=== PATIENT | male | born 1945 | race Caucasian/White ===

== ENCOUNTER 2019-05-26 12:47 | Inpatient (IN) | payer OTHER ==
[2019-05-26 13:53] LABS: Absolute Lymphocytes (CBC) 1.2 K/uL (0.7-4.9); Basophils % 0.3 % (0-1.3); Hematocrit 41.6 % (39.6-49.0); Lymphocytes % 13.8 % (15.3-44.8); MPV 10.6 fL (7.6-11.3); RBC Red Blood Cell Count 4.35 M/uL (4.33-5.43)
[2019-05-26 13:54] LABS: Protime INR 1.1
[2019-05-26 14:05] LABS: Albumin 3.1 g/dL (3.4-5.0); Bilirubin Direct 0.1 mg/dL (0-0.2); Bilirubin Total 0.5 mg/dL (0.2-1.0); Potassium 3.9 mmol/L (3.5-5.1); Protein, Total 7.8 g/dL (6.4-8.2)
--- NOTE | 2019-05-26 14:11 | RAD REPORT ---
EXAM DESCRIPTION: Abe Single View05/26/2019 2:00 pm CLINICAL HISTORY: Chest pain COMPARISON: 2017 FINDINGS: The lungs appear clear of acute infiltrate. The heart is normal size IMPRESSION: No acute abnormalities displayed
--- NOTE | 2019-05-26 15:18 | ER ---
Nurse's Notes [facility] Name: Tiffanie Alvarez Age: 74 yrs Sex: Male : 1945 Arrival Date: 05/26/2019 Time: 12:49 Bed 14 Private MD: Dorian Verde V Diagnosis: Chest pain, unspecified;Angina pectoris;Cough;Essential (primary) hypertension;Type 2 diabetes mellitus Presentation: 05/26 12:56 Presenting complaint: Patient states: i had some chest pain Sunday and it went away tw2 and then this morning i took the garbage out this morning and then i started having pain, it is on the left side of my chest. Presenting complaint: Patient states: i have been coughing for months. Transition of care: patient was not received from another setting of care. Onset of symptoms was May 26, 2019. Risk Assessment: Do you want to hurt yourself or someone else? Patient reports no desire to harm self or others. Initial Sepsis Screen: Does the patient meet any 2 criteria? No. Patient's initial sepsis screen is negative. Does the patient have a suspected source of infection? No. Patient's initial sepsis screen is negative. Care prior to arrival: None. 12:56 Method Of Arrival: Ambulatory tw2 12:56 Acuity: ANDREEA 3 tw2 Triage Assessment: 12:57 General: Appears in no apparent distress. Behavior is calm, cooperative, appropriate tw2 for age. Pain: Complains of pain in chest. Cardiovascular: Reports chest pain. Respiratory: Reports cough that is. Historical: - Allergies: 13: No Known Allergies; tw2 - Home Meds: 13:01 aspirin 81 mg Oral chew 1 tab once daily [Active]; repaglinide 0.5 mg oral tab 1 tab 3 tw2 times per day [Active]; levothyroxine 25 mcg tab 1 tab once daily [Active]; dorzolamide 2 % ophthalmic drop 1 drop 3 times per day [Active]; latanoprost 0.005 % ophthalmic drop 1 drop once daily [Active]; - PMHx: 13:01 CVA; Diabetes - NIDDM; Hypertension; Hypothyroidism; Irregular heart rate; hypotension; tw2 blindness; - Immunization history:: Adult Immunizations. - Coronavirus screen:: The patient has NOT traveled to [place], [place], or [place] in the past 14 days. - Social history:: Smoking status: . - Family history:: not pertinent. - Ebola Screening: : Patient denies travel to an Ebola-affected area in the 21 days before illness onset. Screenin:15 Abuse screen: Denies threats or abuse. Denies injuries from another. Nutritional ca1 screening: No deficits noted. Tuberculosis screening: No symptoms or risk factors identified. Fall Risk IV access (20 points). Ambulatory Aid- Crutches/Cane/Walker (15 pts). Gait- Weak (10 pts.). Total Junior Fall Scale indicates High Risk Score (45 or more points). Fall prevention measures have been instituted. Side Rails Up X 2 Frequent Obs/Assessments Occuring Family Present and informed to notify staff if the need to leave the bedside As available patient and family educated on Fall Prevention Program and Strategies. Assessment: 13:15 General: Appears in no apparent distress. comfortable, Behavior is calm, cooperative, ca1 appropriate for age. Pain: Complains of pain in anterior aspect of left upper chest and mid-sternal area Pain does not radiate. Pain currently is 0 out of 10 on a pain scale. at worst was 7 out of 10 on a pain scale. Quality of pain is described as dull, Pain began 2-3 days ago. Sunday, went away and came back this morning which was worse and with nausea Is intermittent, Also complains of nausea. Neuro: Level of Consciousness is awake, alert, obeys commands, Oriented to person, place, time, situation, Appropriate for age. Cardiovascular: Heart tones S1 S2 present Capillary refill < 3 seconds Patient's skin is warm and dry. Rhythm is sinus bradycardia. Respiratory: Reports cough that is since a month ago Airway is patent Respiratory effort is even, unlabored, Respiratory pattern is regular, symmetrical, Breath sounds are clear bilaterally. GI: Abdomen is flat, non-distended, Bowel sounds present X 4 quads. Abd is soft and non tender X 4 quads. : No signs and/or symptoms were reported regarding the genitourinary system. EENT: Derm: Skin is intact, is healthy with good turgor, Skin is pink, warm \T\ dry. Musculoskeletal: Circulation, motion, and sensation intact. Capillary refill < 3 seconds, Range of motion: intact in all extremities. 14:17 Reassessment: Patient appears in no apparent distress at this time. No changes from ca1 previously documented assessment. Patient and/or family updated on plan of care and expected duration. Pain level reassessed. Patient is alert, oriented x 3, equal unlabored respirations, skin warm/dry/pink. 15:15 Reassessment: Patient appears in no apparent distress at this time. No changes from ca1 previously documented assessment. Patient and/or family updated on plan of care and expected duration. Pain level reassessed. Patient is alert, oriented x 3, equal unlabored respirations, skin warm/dry/pink. 15:58 Reassessment: 's number Peggy: [phone]. ca1 16:44 Reassessment: Patient appears in no apparent distress at this time. Patient and/or ca1 family updated on plan of care and expected duration. Pain level reassessed. Patient is alert, oriented x 3, equal unlabored respirations, skin warm/dry/pink. 16:52 Reassessment: called for report. RN will call back. ca1 Vital Signs: 12:57 BP 145 / 68; Pulse 62; Resp 18; Temp 97.5(TE); Pulse Ox 95% on R/A; Weight 81.65 kg tw2 (R); Height 5 ft. 10 in. (177.80 cm); Pain 0/10; 14:03 BP 154 / 84; Pulse 61; Resp 19 S; Pulse Ox 95% on R/A; ca1 15:15 BP 143 / 87; Pulse 56; Resp 18; Pulse Ox 94% on R/A; ca1 16:44 BP 162 / 91; Pulse 59; Resp 18 S; Pulse Ox 97% on R/A; ca1 12:57 Body Mass Index 25.83 (81.65 kg, 177.80 cm) tw2 ED Course: 12:49 Patient arrived in ED. mr 12:50 Dorian Verde MD is Private Physician. mr 12:57 Triage completed. tw2 12:57 Arm band placed on. tw2 13:06 EKG completed in triage. Results shown to . tw2 13:08 Tuan Navarro MD is Attending Physician. jomar 13:15 Patient has correct armband on for positive identification. Placed in gown. Bed in low ca1 position. Call light in reach. Side rails up X2. teletypesetter monitor on. Pulse ox on. NIBP on. Warm blanket given. 13:15 No provider procedures requiring assistance completed. Patient maintains SpO2 ca1 saturation greater than 95% on room air. 13:26 Kenzie Smith, RN is Primary Nurse. ca1 13:30 Initial lab(s) drawn, by me, sent to lab. First set of blood cultures drawn. Inserted ms saline lock: 20 gauge in right forearm, using aseptic technique. Blood collected. 14:01 XRAY Chest (1 view) In Process Unspecified. EDMS 15:16 Dorian Verde MD is Hospitalizing Provider. [facility] 15:50 Patient admitted, IV remains in place. ca1 Administered Medications: 15:25 Drug: Aspirin 162 mg Route: PO; ca1 16:51 Follow up: Response: No adverse reaction ca1 15:40 Drug: Lipitor 20 mg Route: PO; ca1 16:47 Follow up: Response: No adverse reaction ca1 15:57 Drug: Lovenox 1 mg/kg Route: Sub-Q; Site: right lower abdomen; ca1 16:51 Follow up: Response: No adverse reaction ca1 Outcome: 15:17 Decision to Hospitalize by Provider. jomar 17:19 Admitted to Med/surg accompanied by tech, family with patient, via wheelchair, room ca1 207, with chart, Report called to ZOHAIB DIOR 17:19 Condition: stable ca1 17:19 Instructed on the need for admit. 17:35 Patient left the ED. ca1 Signatures: Dispatcher [employer] EDMS Tuan Navarro MD MD cha Rivera, Ghazala mr Montemayor, Traci Karrie Urban, RN RN tw2 Kenzie Smith, ZOHAIB RN ca1 Corrections: (The following items were deleted from the chart) 13:06 13:03 EKG completed in triage. Results shown to . nic tw2
--- NOTE | 2019-05-26 15:18 | EDPHYS ---
Physician Documentation [facility] Name: Tiffanie Alvarez Age: 74 yrs Sex: Male : 1945 Arrival Date: 05/26/2019 Time: 12:49 Bed 14 Private MD: Dorian Verde V ED Physician Tuan Navarro HPI: 05/26 13:27 This 74 yrs old Male presents to ER via Ambulatory with complaints of Chest jomar Pain, Cough, Nausea. 13:27 The patient or guardian reports chest pain that is located primarily in the substernal jomar area. Onset: 2 day(s) ago. The pain does not radiate. Associated signs and symptoms: Pertinent positives: cough, diaphoresis, lightheadedness. The chest pain is described as a heaviness, a pressure. Modifying factors: The symptoms are alleviated by remaining still, rest, the symptoms are aggravated by exertion. The patient has not experienced similar symptoms in the past. Historical: - Allergies: 13:01 No Known Allergies; tw2 - Home Meds: 13:01 aspirin 81 mg Oral chew 1 tab once daily [Active]; repaglinide 0.5 mg oral tab 1 tab 3 tw2 times per day [Active]; levothyroxine 25 mcg tab 1 tab once daily [Active]; dorzolamide 2 % ophthalmic drop 1 drop 3 times per day [Active]; latanoprost 0.005 % ophthalmic drop 1 drop once daily [Active]; - PMHx: 13:01 CVA; Diabetes - NIDDM; Hypertension; Hypothyroidism; Irregular heart rate; hypotension; tw2 blindness; - Immunization history:: Adult Immunizations. - Coronavirus screen:: The patient has NOT traveled to [place], [place], or [place] in the past 14 days. - Social history:: Smoking status: . - Family history:: not pertinent. - Ebola Screening: : Patient denies travel to an Ebola-affected area in the 21 days before illness onset. ROS: 13:27 Constitutional: Negative for fever, chills, and weight loss, Eyes: Negative for injury, jomar pain, redness, and discharge, ENT: Negative for injury, pain, and discharge, Neck: Negative for injury, pain, and swelling, Respiratory: Negative for shortness of breath, cough, wheezing, and pleuritic chest pain, Abdomen/GI: Negative for abdominal pain, nausea, vomiting, diarrhea, and constipation, Back: Negative for injury and pain, : Negative for injury, bleeding, discharge, and swelling, MS/Extremity: Negative for injury and deformity, Skin: Negative for injury, rash, and discoloration, Neuro: Negative for headache, weakness, numbness, tingling, and seizure. 13:27 Cardiovascular: Positive for chest pain. Exam: 13:27 Constitutional: This is a well developed, well nourished patient who is awake, alert, jomar and in no acute distress. Head/Face: Normocephalic, atraumatic. Eyes: Pupils equal round and reactive to light, extra-ocular motions intact. Lids and lashes normal. Conjunctiva and sclera are non-icteric and not injected. Cornea within normal limits. Periorbital areas with no swelling, redness, or edema. ENT: Nares patent. No nasal discharge, no septal abnormalities noted. Tympanic membranes are normal and external auditory canals are clear. Oropharynx with no redness, swelling, or masses, exudates, or evidence of obstruction, uvula midline. Mucous membranes moist. Neck: Trachea midline, no thyromegaly or masses palpated, and no cervical lymphadenopathy. Supple, full range of motion without nuchal rigidity, or vertebral point tenderness. No Meningismus. Chest/axilla: Normal chest wall appearance and motion. Nontender with no deformity. No lesions are appreciated. Cardiovascular: Regular rate and rhythm with a normal S1 and S2. No gallops, murmurs, or rubs. Normal PMI, no JVD. No pulse deficits. Respiratory: Lungs have equal breath sounds bilaterally, clear to auscultation and percussion. No rales, rhonchi or wheezes noted. No increased work of breathing, no retractions or nasal flaring. Abdomen/GI: Soft, non-tender, with normal bowel sounds. No distension or tympany. No guarding or rebound. No evidence of tenderness throughout. Back: No spinal tenderness. No costovertebral tenderness. Full range of motion. Male : Normal genitalia with no discharge or lesions. Skin: Warm, dry with normal turgor. Normal color with no rashes, no lesions, and no evidence of cellulitis. MS/ Extremity: Pulses equal, no cyanosis. Neurovascular intact. Full, normal range of motion. Neuro: Awake and alert, GCS 15, oriented to person, place, time, and situation. Cranial nerves II-XII grossly intact. Motor strength 5/5 in all extremities. Sensory grossly intact. Cerebellar exam normal. Normal gait. Psych: Awake, alert, with orientation to person, place and time. Behavior, mood, and affect are within normal limits. 13:27 Musculoskeletal/extremity: DVT Exam: No signs of deep vein thrombosis. no pain, no swelling, no tenderness, negative Homans' sign noted on exam, no appreciated bluish discoloration, no erythema, no increased warmth. Vital Signs: 12:57 BP 145 / 68; Pulse 62; Resp 18; Temp 97.5(TE); Pulse Ox 95% on R/A; Weight 81.65 kg tw2 (R); Height 5 ft. 10 in. (177.80 cm); Pain 0/10; 14:03 BP 154 / 84; Pulse 61; Resp 19 S; Pulse Ox 95% on R/A; ca1 15:15 BP 143 / 87; Pulse 56; Resp 18; Pulse Ox 94% on R/A; ca1 16:44 BP 162 / 91; Pulse 59; Resp 18 S; Pulse Ox 97% on R/A; ca1 12:57 Body Mass Index 25.83 (81.65 kg, 177.80 cm) tw2 MDM: 13:08 Patient medically screened. [facility] 13:30 Data reviewed: vital signs, nurses notes, lab test result(s), EKG, radiologic studies, [facility] CT scan, plain films. 05/26 13:16 Order name: Basic Metabolic Panel; Complete Time: 14:45 [facility] 05/26 13:16 Order name: CBC with Diff; Complete Time: 14:45 [facility] 05/26 13:16 Order name: LFT's; Complete Time: 14:45 [facility] 05/26 13:16 Order name: Magnesium; Complete Time: 14:45 [facility] 05/26 13:16 Order name: NT PRO-BNP; Complete Time: 14:45 [facility] 05/26 13:16 Order name: PT-INR; Complete Time: 14:45 [facility] 05/26 13:16 Order name: Troponin (emerg Dept Use Only); Complete Time: 17:21 [facility] 05/26 13:16 Order name: XRAY Chest (1 view); Complete Time: 14:45 [facility] 05/26 13:16 Order name: Lipase; Complete Time: 17:21 [facility] 05/26 13:27 Order name: Blood Culture Adult (2) [facility] 05/26 15:21 Order name: Urine Dipstick--Ancillary (enter results) 05/26 13:16 Order name: EKG; Complete Time: 13:17 [facility] 05/26 13:16 Order name: Cardiac monitoring; Complete Time: 13:36 [facility] 05/26 13:16 Order name: EKG - Nurse/Tech; Complete Time: 13:36 [facility] 05/26 13:16 Order name: IV Saline Lock; Complete Time: 13:37 [facility] 05/26 13:16 Order name: Labs collected and sent; Complete Time: 13:37 [facility] 05/26 13:16 Order name: O2 Per Protocol; Complete Time: 13:37 [facility] 05/26 13:16 Order name: O2 Sat Monitoring; Complete Time: 13:37 [facility] 05/26 13:16 Order name: Urine Dipstick-Ancillary (obtain specimen); Complete Time: 14:58 [facility] 05/26 15:23 Order name: CONS Physician Consult [facility] 05/26 15:24 Order name: Diet Heart Healthy; Complete Time: 15:25 iw Administered Medications: 15:25 Drug: Aspirin 162 mg Route: PO; ca1 16:51 Follow up: Response: No adverse reaction ca1 15:40 Drug: Lipitor 20 mg Route: PO; ca1 16:47 Follow up: Response: No adverse reaction ca1 15:57 Drug: Lovenox 1 mg/kg Route: Sub-Q; Site: right lower abdomen; ca1 16:51 Follow up: Response: No adverse reaction ca1 Disposition: 05/26/19 15:17 Hospitalization ordered by Dorian Verde for Inpatient Admission. Preliminary diagnosis are Chest pain, unspecified, Angina pectoris, Cough, Essential (primary) hypertension, Type 2 diabetes mellitus. - Bed requested for Telemetry/MedSurg (Inpatient). - Status is Inpatient Admission. ca1 - Condition is Fair. - Problem is new. - Symptoms have improved. UTI on Admission? No Signatures: Dispatcher [employer] [facility] Lila Grace Corey, MD MD cha Attema, Lee, AIRPORT RAMP ATTENDANT-C AIRPORT RAMP ATTENDANT-Cla1 Karrie Pillai RN RN tw2 Kenzie Smith RN RN ca1 Corrections: (The following items were deleted from the chart) 16:42 15:17 Hospitalization Ordered by Dorian Verde MD for Inpatient Admission. Preliminary bd diagnosis is Chest pain, unspecified; Angina pectoris; Cough; Essential (primary) hypertension; Type 2 diabetes mellitus. Bed requested for Telemetry/MedSurg (Inpatient). Status is Inpatient Admission. Condition is Fair. Problem is new. Symptoms have improved. UTI on Admission? No. jomar 17:35 16:42 05/26/2019 15:17 Hospitalization Ordered by Dorian Verde MD for Inpatient ca1 Admission. Preliminary diagnosis is Chest pain, unspecified; Angina pectoris; Cough; Essential (primary) hypertension; Type 2 diabetes mellitus. Bed requested for Telemetry/MedSurg (Inpatient). Status is Inpatient Admission. Condition is Fair. Problem is new. Symptoms have improved. UTI on Admission? No. bd
--- NOTE | 2019-05-26 15:19 | EKG ---
Test Date: 2019-05-26 Test Time: 13:05:42 Mine Geologist: MADHAV MEASUREMENT RESULTS: Intervals: Rate: 61 CA: 270 QRSD: 96 QT: 426 QTc: 428 [place]: P: 38 CA: 270 QRS: 42 T: 87 INTERPRETIVE STATEMENTS: Sinus rhythm with 1st degree AV block Abnormal ECG Compared to ECG 05/30/2017 17:44:20 Sinus bradycardia no longer present Electronically Signed On 05-26-19 15:18:23 DISH CARRIER by Wilber Medley
[2019-05-26] MEDS ORDERED: ENOXAPARIN 80 MG/0.8 ML SQ ONE (15:26)
[2019-05-26] MEDS ORDERED: ASPIRIN 81 MG CHEWABLE TABLET ONE (15:26)
[2019-05-26 15:39] LABS: Troponin (Emerg Dept Use Only) 0.38 ng/mL (0.0-0.045)
[2019-05-26] MEDS ORDERED: ATORVASTATIN 20 MG TAB ONE (15:43)
[2019-05-26 17:55] VITALS: BMI 24.1
[2019-05-26] MEDS ORDERED: MORPHINE 4 MG/ML SYR IV PRN (18:07)
[2019-05-26] MEDS ORDERED: D50W 25 GM/50 ML SYRINGE/VIAL IV PRN (18:07)
[2019-05-26] MEDS ORDERED: GLUCAGON 1 MG/VIAL IM PRN (18:07)
[2019-05-26] MEDS ORDERED: ACETAMINOPHEN 500 MG TAB PO PRN (18:07)
[2019-05-26] MEDS ORDERED: ONDANSETRON 4 MG/2 ML VIAL IV PRN (18:07)
[2019-05-26] MEDS: INSULIN -REGULAR HUMAN 50 UNIT/0.5 ML ML SQ SCH ×2 (18:24→21:00)
[2019-05-26] MEDS: METOPROLOL TAR 25 MG TAB PO SCH (18:25)
--- NOTE | 2019-05-26 18:28 | P.HP ---
Certification for Inpatient Patient admitted to: Inpatient With expected LOS: >2 Midnights Practitioner: I am a practitioner with admitting privileges, knowledge of patient current condition, hospital course, and medical plan of care. Services: Services provided to patient in accordance with Admission requirements found in Title 42 Section 412.3 of the Code of Federal Regulations Patient History Date of Service: 05/26/19 Reason for admission: CHEST PAIN History of Present Illness: MR. MARIANO IS A DIABETIC WHO HAD CHEST PAIN ONCE SUNDAY AND THEN THIS AM. HE HAD VOMITING THIS AM ALSO. HE IS NOT A SMOKER. Allergies No Known Allergies Allergy (Verified 11/25/15 08:55) Home Medications: Aspirin [Aspir-Low] 81 mg PO DAILY 05/26/19 Dorzolamide HCl/Timolol Maleat [Dorzolamide-Timolol Eye Drops] 10 ml OP BID Latanoprost/Pf [Latanoprost 0.005% Eye Drop] 1 drop EACH EYE DAILY 05/26/19 Levothyroxine Sodium 25 mcg PO DAILY 05/26/19 Repaglinide [Prandin] 0.5 mg PO DAILY 05/26/19 - Past Medical/Surgical History Has patient received pneumonia vaccine in the past: No Diabetic: Yes -: HTN -: DIABETES- NIDDM -: CATARACT SX TO RIGHT EYE- March -: Right 5th toe amputation - Family History Mother -: Hypertension, Diabetes - Social History Smoking Status: Never smoker Alcohol use: No CD- Drugs: No Caffeine use: No Review of Systems 10-point ROS is otherwise unremarkable Physical Examination - Vital Signs Temperature: 97.8 F Blood Pressure: 133/69 Pulse: 60 Respirations: 17 Pulse Ox (%): 93 - Physical Exam General: Acute distress, Other (BLIND) HEENT: Atraumatic, PERRLA, Mucous membr. moist/pink, EOMI, Sclerae nonicteric Neck: Supple, 2+ carotid pulse no bruit, No LAD, Without JVD or thyroid abnormality Respiratory: Clear to auscultation bilaterally, Normal air movement Cardiovascular: Regular rate/rhythm, Normal S1 S2 Gastrointestinal: Normal bowel sounds, No tenderness Musculoskeletal: No tenderness Integumentary: No rashes Neurological: Normal gait, Normal speech, Normal strength at 5/5 x4 extr, Normal tone, Normal affect Lymphatics: No axilla or inguinal lymphadenopathy - Studies Laboratory Data (last 24 hrs) 05/26/19 13:30: Lipase 224 05/26/19 13:30: PT 12.9 H, INR 1.10 05/26/19 13:30: WBC 8.5, Hgb 13.9, Hct 41.6, Plt Count 151 L 05/26/19 13:30: Sodium 140, Potassium 3.9, BUN 25 H, Creatinine 1.28, Glucose 168 H, Magnesium 2.0, Total Bilirubin 0.5, AST 15, ALT 27, Alkaline Phosphatase 78 Assessment and Plan - Problems (Diagnosis) (1) Subendocardial DE first episode care Current Visit: Yes Status: Acute Plan: CATH IN AM. STORY AND RISK FACTORS ARE POSITIVE. (2) Diabetes Current Visit: No Status: Chronic Plan: USUALLY HE GET LOW GLUCOSE IF HE HE GETS ANYTHING STRONGER THAN REPAGLINIDE. WILL CHECK A1C, LDL AND URINE SHAILESH. - Advance Directives Does patient have a Living Will: No Does patient have a Durable POA for Healthcare: No
--- NOTE | 2019-05-26 18:29 | CON ---
History Of Present Illness: Mr. Alvarez is 74. He started having chest pain. Four baby aspirins were administered by a nurse who lives next to him. His pain went away. He has had some other chest jose juan ns that he does not like to talk about, but all over a fairly brief period of time. Around 10 years ago, nuclear stress test was normal. Since then, he has not had any other cardiac evaluation. He us es no tobacco. He has underlying diabetes. 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 Since he came here, his EKG does not show injury or infarction, but troponins are elevated consistent with a non-ST elevation OK. Patient is free of any pain presently. He reports no allergies. Physical Examination: General: He is alert, oriented, pleasant. Normal nutrition. Lungs: Clear. There is no carotid bruit. Heart: Normal. Extremities: 1 to 2+ edema. Distal pulses palpable but diminished. Impression: The patient has unstable angina and he should undergo a cardiac cath and possible stent. He seems to have agreed to it. He seems to understand the procedure, its potential benefits, indic ations, risks, and agrees to proceed. We will do a cardiac cath on May 27, 2019. SADIA/MONALISA Voice ID: [id number] Report ID: [id number]
[2019-05-26 18:44] LABS: Urine Blood TRACE (NEG); Urine Glucose NEGATIVE (NEG); Urine Protein 2+ (NEG); Urine Specific Gravity 1.015 (1.005-1.030)
[2019-05-26] MEDS ORDERED: TIMOLOL MALEAT OP SCH (21:00)
[2019-05-26] MEDS ORDERED: DORZOLAMIDE HCL OP SCH (21:00)
[2019-05-26] MEDS ORDERED: [UNRECOGNIZED DRUG - OTHER] OP SCH (21:00)
[2019-05-27 05:46] LABS: Potassium 4.2 mmol/L (3.5-5.1)
[2019-05-27 05:53] LABS: Absolute Lymphocytes (CBC) 2.3 K/uL (0.7-4.9); Basophils % 0.4 % (0-1.3); Hematocrit 40.3 % (39.6-49.0); Lymphocytes % 29.1 % (15.3-44.8); MPV 10.4 fL (7.6-11.3); RBC Red Blood Cell Count 4.18 M/uL (4.33-5.43)
[2019-05-27] MEDS: LEVOTHYROXINE SOD 0.025 MG TAB PO SCH (06:33)
[2019-05-27] MEDS: METOPROLOL TAR 25 MG TAB PO SCH ×2 (06:33→18:04)
[2019-05-27] MEDS: INSULIN -REGULAR HUMAN 50 UNIT/0.5 ML ML SQ SCH ×4 (07:30→21:00)
[2019-05-27] MEDS ORDERED: METOPROLOL XL 50 MG TAB PO ONE (07:49)
[2019-05-27] MEDS ORDERED: METOPROLOL TAR 50 MG TAB PO ONE ×2 (07:57→08:00)
[2019-05-27] MEDS ORDERED: REPAGLINIDE 0.5 MG TABLET PO SCH (09:00)
[2019-05-27] MEDS ORDERED: HOME MED 1 EA UNK (Latanoprost/Pf [Latanoprost 0.005% Eye Drop] 1 DROP) EACH EYE SCH (09:00)
[2019-05-27] MEDS ORDERED: ASPIRIN EC 81 MG TAB PO SCH ×2 (09:00)
[2019-05-27] MEDS ORDERED: NA CHLORIDE 0.9% 500 ML ONE (12:28)
[2019-05-27] MEDS ORDERED: NA CHLORIDE 0.9% 50 ML ONE (12:37)
[2019-05-27] MEDS ORDERED: MIDAZOLAM HCL 2 MG/2 ML INJ ONE (12:37)
[2019-05-27] MEDS ORDERED: ATROPINE SULF 1 MG/10 ML SYR IV ONE (12:37)
[2019-05-27] MEDS ORDERED: FENTANYL CITR 100 MCG/2 ML ONE (12:37)
[2019-05-27] MEDS ORDERED: HEPA 1000U/500MLS 1,000 UNIT/500 ML BAG IV ONE (12:43)
[2019-05-27] MEDS ORDERED: NITROGLYCERIN 100 MCG/ML SYR (for cath lab use only) IV ONE (13:51)
[2019-05-27] MEDS ORDERED: NITROGLYCERIN/D5W 25 MG/250 ML BTL IV ONE (13:51)
[2019-05-27] MEDS ORDERED: ASPIRIN 325 MG TAB ONE (14:09)
[2019-05-27] MEDS ORDERED: PRASUGREL (EFFIENT) 10 MG TAB ONE (14:09)
--- NOTE | 2019-05-27 15:55 | EKG ---
Test Date: 2019-05-27 Test Time: 08:20:27 Dietary Director: MADHAV MEASUREMENT RESULTS: Intervals: Rate: 54 GA: 254 QRSD: 82 QT: 462 QTc: 438 [place]: P: 51 GA: 254 QRS: 36 T: 129 INTERPRETIVE STATEMENTS: Sinus bradycardia with 1st degree AV block T wave abnormality, consider lateral ischemia Abnormal ECG Compared to ECG 05/26/2019 13:05:42 T-wave abnormality now present Possible ischemia now present Sinus rhythm no longer present Electronically Signed On 05-27-19 15:51:52 FORMULATION CHEMIST by Chalo Child
[2019-05-27] MEDS ORDERED: ACETAMINOPHEN 325 MG TABLET PO PRN (17:49)
[2019-05-27] MEDS ORDERED: NITROGLYCERIN 0.4 MG/TAB SL PRN (17:49)
[2019-05-27] MEDS ORDERED: NA CHLORIDE 0.9% 1,000 ML IV SCH (18:00)
[2019-05-27] MEDS ORDERED: ATORVASTATIN 80 MG TAB PO SCH (21:00)
--- NOTE | 2019-05-28 00:16 | PN ---
Subjective: Mr. Alvarez is doing well. Had no chest pain, nausea, vomiting. Patient wanted to get angiogram done by Dr. Child stenosis 90%, which was stented today. Otherwise, he is currently stable. Physical Examination: Vital Signs: His blood pressure has gone up to 166/90, pulse is 50, respiratory rate is 18, temperature is 97.7. HEENT: No JVD. No carotid bruits. Chest: Clear. Heart: Regular. Abdomen: No guarding. No rebound. No rigidity. Neurological: He is legally blind. Laboratory Data: His hemoglobin A1c is 8.4, which is slightly higher than before. Assessment And Plan: Coronary artery disease, status post stent. He will be on 80 mg once a day of Lipitor, metoprolol twice a day. His IV fluids I am going to stop at this point which was from the emergency room, and for blood pressure control, I have to add a medication and that will be losartan 50 mg once a day. He will be also on Plavix 75 mg once a day and possible discharge tomorrow. EDVIN/MONALISA Voice ID: [id number] Report ID: [id number] RICK
--- NOTE | 2019-05-28 00:33 | OP ---
Date of Procedure: 05/27/2019 Surgeon: Chalo Child MD Vaccine Specialist: Radha Ambrose Patient received Angiomax, aspirin, and Effient during the procedure. He will go home on beta-blocke rs, aspirin, Plavix, and statin. I will discuss the case with Dr. Verde. Patient can go home tomorr ow. I saw the patient today in the label cutter on 05/27/2019. Indications: Dr. Medley has scheduled him for an inpatient heart catheterization because of chest pa in, abnormal stress test. Description Of Procedure: Mr. Alvarez was brought into the label cutter as an inpatient, was prepped and d raped in the routine sterile fashion. A 6-Syrian sheath introduced in the right common femoral arter y. Angiography there was normal. Angio-Seal was used to close the case. After being prepped and dr alatorre in the routine sterile fashion, 6-Syrian catheters, Felipe left and right respectively were use d to inject the left main and the right main. He had a codominant system. He had a 30% mid RCA sten osis. He had a 90% ostial PDA stenosis that the PDA was small. He had a normal proximal LAD, but di stally, the LAD was very tortuous with 60% to 70% diffuse plaquing and stenosis below the second diag onal, not bypassable, not amenable for angioplasty or stent. He had a ramus that was small with 90% [id number] stenosis, also very small for intervention. He had a 90% proximal circumflex, a very c odominant system. The circumflex was stented with 2.5 x 16 Synergy stent at 14 atmosphere with 0% re sidual. Prior to the stent, the lesion was predilated with a 2.5 x 12 Emerge balloon at 12 atmospher es, multiple dilatation. There were no complications. Blood Loss: 5 mL. Postoperative Diagnosis: Coronary artery disease, severe, status post primary stent of the circumfle x. Plan: Medical therapy for the rest of the lesion as they are not operable. Anesthesia: Total conscious sedation was 1 hour. NB/MODL Voice ID: [id number] Report ID: [id number]
[2019-05-28 02:15] VITALS: O2SAT 94
[2019-05-28] MEDS: METOPROLOL TAR 25 MG TAB PO SCH (06:00)
[2019-05-28] MEDS: LEVOTHYROXINE SOD 0.025 MG TAB PO SCH (06:08)
[2019-05-28] MEDS ORDERED: GLIMEPIRIDE 2 MG TABLET PO SCH (08:00)
[2019-05-28] MEDS ORDERED: REPAGLINIDE 0.5 MG PO SCH (09:00)
[2019-05-28] MEDS ORDERED: CLOPIDOGREL 75 MG TABLET PO SCH (09:00)
[2019-05-28 10:20] VITALS: BP 141/67; TEMP 97.5
--- NOTE | 2019-05-28 12:56 | CON ---
Date of Consultation: 05/28/2019 Mr. Alvarez underwent a heart catheterization yesterday via right groin approach for a positive stress test and chest pain. He was found to have diffuse coronary artery disease, especially distally in th e LAD. He had also disease in the mid RCA and distal RCA at the ostium of the PDA. He had a severe stenosis and a very small ramus. His LAD proximal was normal. He had a very tight 90% plus circumfl ex stenosis that was dilated and stented to 0% residual. Overnight, he had no chest pain, no complai nt. Telemetry is normal. Chest is clear. Pulses are present distally. The groin incision site angy eared to be intact without any hematoma. We will send Mr. Alvarez home today on his home medication, b ut we will also include Plavix 75 mg daily, Lipitor 80 mg daily. He will see me in the office in 2 w eeks. The case was discussed with Dr. Verde. EAMON/MONALISA Voice ID: [id number] Report ID: [id number]
--- NOTE | 2019-05-29 04:39 | DS ---
Date of Discharge: 05/28/2019 Final Diagnosis: Acute subendocardial myocardial infarction. 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 Hospital Course: Patient is a 74-year-old gentleman with past medical history of diabetes, who has n ot been very compliant. His A1c has been about 8.4 recently. He comes in with chest pain and jaw pa in with it, rules in for a subendocardial SC. On a cardiac catheter examination, we found patient to have circumflex 90% lesion for which Dr. Child placed in a stent. The patient was stable at disch arge. I had to change some of his medications because his diabetes medicine is not working any longe r. Discharge Medications: Include Plavix 75 mg once a day, atorvastatin 80 mg once a day, glimepiride 2 mg once a day, stopping Prandin. I will follow up in office in about a week or 2 weeks. RVD/MODL Voice ID: [id number] Report ID: [id number]
== END 2019-05-28 10:00 | disposition home or self-care (01) | DRG 247 ==
LOC: ER 12:47 → ERHOLD 15:21 → 2ND 17:22
PROVIDERS: ADMIT Internal Medicine; ATTEND Internal Medicine
PROC: 027034Z Dilation of Coronary Artery, One Artery with Drug-eluting Intraluminal Device, Percutaneous Approach (ICD-10-PCS; principal; 2019-05-27)
PROC: 4A023N7 Measurement of Cardiac Sampling and Pressure, Left Heart, Percutaneous Approach (ICD-10-PCS; 2019-05-27)
PROC: B205YZZ Plain Radiography of Left Heart using Other Contrast (ICD-10-PCS; 2019-05-27)
DX: I21.4 Non-ST elevation (NSTEMI) myocardial infarction (principal); E11.9 Type 2 diabetes mellitus without complications; H54.7 Unspecified visual loss; I10 Essential (primary) hypertension; I25.10 Atherosclerotic heart disease of native coronary artery without angina pectoris; Z91.14 Patient's other noncompliance with medication regimen; E03.9 Hypothyroidism, unspecified; Z86.73 Personal history of transient ischemic attack (TIA), and cerebral infarction without residual deficits
CPT/HCPCS: 36415; 71045; 80048; 80076; 81003; 82947; 83036; 83690; 83735; 83880; 84484; 85025; 85347; 85610; 87040; 93005; 93458; 96372; 99285; C1725; C1760; C1893; C9600; J0583; J1650; J2250; J3010; J7040

== ENCOUNTER 2019-06-21 17:36 | Emergency (ER) | payer OTHER ==
[2019-06-21 19:40] LABS: Basophils % 0.2 % (0-1.3); Hematocrit 46.9 % (39.6-49.0); Lymphocytes % 7.4 % (15.3-44.8); MPV 10.1 fL (7.6-11.3); RBC Red Blood Cell Count 4.85 M/uL (4.33-5.43)
[2019-06-21] MEDS ORDERED: NA CHLORIDE 0.9% 1,000 ML ONE (19:47)
[2019-06-21] MEDS ORDERED: ONDANSETRON 4 MG/2 ML VIAL ONE (19:47)
[2019-06-21 19:58] LABS: Albumin 3.2 g/dL (3.4-5.0); Bilirubin Direct 0.2 mg/dL (0-0.2); Bilirubin Total 0.5 mg/dL (0.2-1.0); Potassium 5.1 mmol/L (3.5-5.1); Protein, Total 8.3 g/dL (6.4-8.2)
[2019-06-21 20:00] LABS: Blood Morphology Comment NOT SEEN (NOT SEEN); Platelet Estimate ADEQ; Urine White Blood Cell Casts OK
--- NOTE | 2019-06-21 20:36 | RAD REPORT ---
EXAM DESCRIPTION: CT - Abdomen Pelvis Wo Contrast - 06/21/2019 8:21 pm CLINICAL HISTORY: vomiting, diarrhea COMPARISON: No comparisons TECHNIQUE: Axial [address] imaging of the abdomen and pelvis was performed without IV contrast. No IV contrast was given because of allergy, abnormal renal function, patient refusal or physician re quest. No oral contrast. All CT scans are performed using dose optimization technique as appropriate and may include automated exposure control or mA/KV adjustment according to patient size. FINDINGS: Prominent fibrotic changes and prominent bronchiectasis in both lung bases. No pericardial thickening or effusion. No acute infiltrate or mass. The liver, spleen and pancreas show no suspicious findings on non-contrast imaging. Gallbladder and b iliary tree are also without suspicious finding. No hydronephrosis or suspicious renal mass. No significant adrenal finding. Isodense renal masses an d pyelonephritis cannot be excluded in the absence of IV contrast. The urinary bladder is without sig nificant finding. Prostate gland is prominent projecting into the bladder base. No stomach or small bowel acute findings identifiable. No dilated colon. Mild to moderate stool volum e scattered in the colon. No appendicitis findings. Diverticulosis is minimal. Distal rectal hoep ar e mildly prominent. This region of the colon has limited sensitivity on CT imaging. No mass lesions s een. A mild proctitis is not excluded. No edema or stranding in the adjacent fat. No free air, free f luid or pneumatosis. No hernia, mass or bulky lymphadenopathy. No suspicious bony findings. IMPRESSION: Noncontrast CT abdomen and pelvis imaging showing no suspicious, emergent finding. Hope of the distal most rectum are mildly prominent. This area is inherently limited on CT imaging. The mass is not suspected. A mild proctitis would be possible. Full assessment is limited is the absence of IV contrast.
--- NOTE | 2019-06-21 22:42 | ER ---
Nurse's Notes [facility] Name: Tiffanie Alvarez Age: 74 yrs Sex: Male : 1945 Arrival Date: 06/21/2019 Time: 17:39 Bed 15 Private MD: Dorian Verde V Diagnosis: Vomiting;Diarrhea, unspecified;Dehydration;Bronchitis, not specified as acute or chronic Presentation: 06/21 17:55 Presenting complaint: Patient states: Nausea and vomiting since this morning, states aj1 that he has been unable to hold down foods or fluids. Transition of care: patient was not received from another setting of care. Onset of symptoms was May 2019. Risk Assessment: Do you want to hurt yourself or someone else? Patient reports no desire to harm self or others. Initial Sepsis Screen: Does the patient meet any 2 criteria? No. Patient's initial sepsis screen is negative. Does the patient have a suspected source of infection? No. Patient's initial sepsis screen is negative. Care prior to arrival: None. 17:55 Method Of Arrival: Wheelchair aj1 17:59 Acuity: ANDREEA 2 aj1 Triage Assessment: 17:59 General: Appears in no apparent distress. comfortable, Behavior is calm, cooperative, aj1 appropriate for age. Pain: Denies pain. Neuro: Level of Consciousness is awake, alert, obeys commands. Cardiovascular: Patient's skin is warm and dry. Respiratory: Airway is patent Respiratory effort is even, unlabored, Respiratory pattern is regular, symmetrical. GI: Reports diarrhea, nausea, vomiting. Historical: - Allergies: 17:58 No Known Allergies; aj1 - Home Meds: 17:58 Glimepiride Oral [Active]; levothyroxine 25 mcg tab 1 tab once daily [Active]; Plavix aj1 75 mg Oral tab 1 tab once daily [Active]; atorvastatin 80 mg oral tab 1 tab once daily [Active]; losartan 50 mg oral tab 1 tab once daily [Active]; aspirin 81 mg Oral chew 1 tab once daily [Active]; dorzolamide 2 % ophthalmic drop 1 drop 3 times per day [Active]; latanoprost 0.005 % ophthalmic drop 1 drop once daily [Active]; - PMHx: 17:58 BLINDNESS; CVA; Diabetes - NIDDM; Hypertension; hypotension; Hypothyroidism; Irregular aj1 heart rate; - Immunization history:: Flu vaccine is not up to date. - Coronavirus screen:: The patient has NOT traveled to [place] in the past 14 days. - Social history:: Smoking status: Patient/guardian denies using tobacco. - Ebola Screening: : Patient denies travel to an Ebola-affected area in the 21 days before illness onset. Screenin:13 Abuse screen: Denies threats or abuse. Denies injuries from another. Nutritional ph screening: No deficits noted. Tuberculosis screening: No symptoms or risk factors identified. Fall Risk None identified. Assessment: 19:10 General: Appears in no apparent distress. comfortable, slender, well groomed, Behavior ph is calm, cooperative, appropriate for age, Denies fever. Pain: Denies pain. Neuro: Level of Consciousness is awake, obeys commands, lethargic, Oriented to person, place, time, situation. Cardiovascular: Capillary refill < 3 seconds in bilateral fingers Patient's skin is warm and dry. Respiratory: Reports cough that is productive, Airway is patent Respiratory effort is even, unlabored, Respiratory pattern is regular, symmetrical, Breath sounds are coarse bilaterally. GI: Abdomen is flat, Reports diarrhea, nausea, vomiting. Derm: Skin is intact, Skin is pink, warm \T\ dry. Musculoskeletal: Circulation, motion, and sensation intact. Range of motion: intact in all extremities. 19:15 General: Appears in no apparent distress. Behavior is calm, cooperative. Pain: Denies lp1 pain. Neuro: Level of Consciousness is awake, alert, obeys commands, Oriented to person, place, situation. Cardiovascular: Patient's skin is warm and dry. Respiratory: Reports cough that is productive, Airway is patent Respiratory effort is even, Breath sounds are coarse bilaterally. Onset: The symptoms/episode began/occurred yesterday. GI: Abdomen is non-distended, Bowel sounds present X 4 quads. Reports vomiting. : No signs and/or symptoms were reported regarding the genitourinary system. EENT: No signs and/or symptoms were reported regarding the EENT system. Derm: Skin is pink, warm \T\ dry. 19:56 Reassessment: Patient denies any nausea at this time; Resting, eyes closed, lp1 respirations even, unlabored. 21:35 Reassessment: Patient given sandwich and fruit cup for PO challenge; Zofran IV lp1 administered per Provider prior to PO challenge; NC removed from patient to observe O2. 22:15 Reassessment: Patient tolerated fruit cup and half of turkey sandwich; Provider aware. lp1 22:45 Reassessment: Provider notified of patient's O2 on RA at 92% while sleeping. lp1 23:10 Reassessment: Patient appears in no apparent distress at this time. Patient is alert, lp1 oriented x 3, equal unlabored respirations, skin warm/dry/pink. Patient states feeling better. Patient states symptoms have improved. Vital Signs: 17:59 BP 113 / 70; Pulse 64; Resp 18; Temp 98.1; Pulse Ox 87% on R/A; Weight 76.66 kg (R); aj1 Height 5 ft. 10 in. (177.80 cm) (R); Pain 0/10; 19:30 BP 129 / 72; Pulse 64; Resp 18; Pulse Ox 95% on 2 lpm NC; lp1 20:30 BP 133 / 74; Pulse 64; Resp 18; Pulse Ox 96% on 2 lpm NC; lp1 21:17 BP 129 / 85; Pulse 69; Resp 18; Pulse Ox 95% on 2 lpm NC; lp1 22:30 BP 132 / 78; Pulse 75; Resp 18; Pulse Ox 93% on R/A; lp1 23:15 BP 122 / 67; Pulse 78; Resp 18; Temp 98(O); Pulse Ox 94% on R/A; lp1 17:59 Body Mass Index 24.25 (76.66 kg, 177.80 cm) aj1 ED Course: 17:39 Patient arrived in ED. as 17:39 Dorian Verde MD is Private Physician. as 17:59 Triage completed. aj1 17:59 Arm band placed on Patient placed in an exam room. aj1 18:18 Shannan Black, ZOHAIB is Primary Nurse. ph 18:19 Saroj Reis NP is PHCP. pm1 18:19 Bobby Romero MD is Attending Physician. pm1 19:13 Patient has correct armband on for positive identification. Bed in low position. Call ph light in reach. Side rails up X 1. Pulse ox on. NIBP on. Door closed. Noise minimized. 19:13 Missed attempt(s): 22 gauge in right antecubital area. Bleeding controlled, band aid ph applied, catheter tip intact. 19:23 Flu Sent. 19:30 Initial lab(s) drawn, by me, sent to lab. Inserted saline lock: 20 gauge in left lp1 antecubital area, using aseptic technique. 20:22 CT completed. Patient tolerated procedure well. Patient moved back from CT. mw3 22:41 Dorian Verde MD is Referral Physician. pm1 22:54 No provider procedures requiring assistance completed. lp1 23:15 IV discontinued, No redness/swelling at site. Pressure dressing applied. lp1 Administered Medications: 19:56 Drug: NS 0.9% 1000 ml Route: IV; Rate: 1000 ml; Site: left antecubital; lp1 22:30 Follow up: IV Status: Completed infusion; IV Intake: 1000ml lp1 21:25 Drug: Zofran 4 mg Route: IVP; Site: left antecubital; lp1 22:30 Follow up: Response: No adverse reaction lp1 Intake: 22:30 IV: 1000ml; Total: 1000ml. lp1 Outcome: 22:42 Discharge ordered by MD. pm1 23:15 Discharged to home via wheelchair, with significant other. lp1 23:15 Condition: good 23:15 Discharge instructions given to patient, significant other, Instructed on discharge instructions, follow up and referral plans. medication usage, Demonstrated understanding of instructions, follow-up care, medications, Prescriptions given X 3. 23:20 Patient left the ED. lp1 Signatures: Hilda Guerra RN RN aj1 Pallavi Mccallum Laura, RN RN lp1 Shannan Black RN RN ph Marinas, Patrick, NP SQUIRREL WORKER pm1 Floridalma Priest Fely Perez mw3
--- NOTE | 2019-06-21 22:42 | EDPHYS ---
Physician Documentation [facility] Name: Tiffanie Alvarez Age: 74 yrs Sex: Male : 1945 Arrival Date: 06/21/2019 Time: 17:39 Bed 15 Private MD: Dorian Verde V ED Physician Bobby Romero HPI: 06/21 19:38 This 74 yrs old Male presents to ER via Wheelchair with complaints of pm1 Vomiting - diabetic. 19:38 The patient presents to the emergency department with vomiting, diarrhea. Onset: The pm1 symptoms/episode began/occurred this morning. Possible causes: unknown. The symptoms are aggravated by food , The symptoms are alleviated by nothing. Associated signs and symptoms: Pertinent negatives: abdominal pain, constipation, dysuria, fever. Severity of symptoms: Pain is currently a 0 / 10. Historical: - Allergies: 17:58 No Known Allergies; aj1 - Home Meds: 17:58 Glimepiride Oral [Active]; levothyroxine 25 mcg tab 1 tab once daily [Active]; Plavix aj1 75 mg Oral tab 1 tab once daily [Active]; atorvastatin 80 mg oral tab 1 tab once daily [Active]; losartan 50 mg oral tab 1 tab once daily [Active]; aspirin 81 mg Oral chew 1 tab once daily [Active]; dorzolamide 2 % ophthalmic drop 1 drop 3 times per day [Active]; latanoprost 0.005 % ophthalmic drop 1 drop once daily [Active]; - PMHx: 17:58 BLINDNESS; CVA; Diabetes - NIDDM; Hypertension; hypotension; Hypothyroidism; Irregular aj1 heart rate; - Immunization history:: Flu vaccine is not up to date. - Coronavirus screen:: The patient has NOT traveled to [place] in the past 14 days. - Social history:: Smoking status: Patient/guardian denies using tobacco. - Ebola Screening: : Patient denies travel to an Ebola-affected area in the 21 days before illness onset. ROS: 19:38 Back: Negative for injury and pain, MS/Extremity: Negative for injury and deformity, pm1 Skin: Negative for injury, rash, and discoloration. 19:38 Neuro: Negative for headache, weakness, numbness, tingling, and seizure. 19:38 Constitutional: Negative for fever, chills, and weight loss, Neck: Negative for injury, pain, and swelling, Cardiovascular: Negative for chest pain, palpitations, and edema, Respiratory: Negative for shortness of breath, wheezing, and pleuritic chest pain, Positive for cough: patient currently taking antibiotics from Dr. Verde for the cough 19:38 Abdomen/GI: Positive for nausea, vomiting, and diarrhea, Negative for abdominal pain, constipation. Exam: 19:38 Constitutional: This is a well developed, well nourished patient who is awake, alert, pm1 and in no acute distress. Head/Face: Normocephalic, atraumatic. Neck: Trachea midline, no thyromegaly or masses palpated, and no cervical lymphadenopathy. Supple, full range of motion without nuchal rigidity, or vertebral point tenderness. No Meningismus. Chest/axilla: Normal chest wall appearance and motion. Nontender with no deformity. No lesions are appreciated. Cardiovascular: Regular rate and rhythm with a normal S1 and S2. No gallops, murmurs, or rubs. Normal PMI, no JVD. No pulse deficits. Respiratory: Lungs have equal breath sounds bilaterally, clear to auscultation and percussion. No rales, rhonchi or wheezes noted. No increased work of breathing, no retractions or nasal flaring. 19:38 Back: No spinal tenderness. No costovertebral tenderness. Full range of motion. Skin: Warm, dry with normal turgor. Normal color with no rashes, no lesions, and no evidence of cellulitis. MS/ Extremity: Pulses equal, no cyanosis. Neurovascular intact. Full, normal range of motion. 19:38 Abdomen/GI: Inspection: abdomen appears normal, Bowel sounds: normal, Palpation: abdomen is soft and non-tender, in all quadrants, mass, is not appreciated, rebound tenderness, is not appreciated. 19:38 Neuro: Orientation: is normal, Motor: is normal, moves all fours. Vital Signs: 17:59 BP 113 / 70; Pulse 64; Resp 18; Temp 98.1; Pulse Ox 87% on R/A; Weight 76.66 kg (R); aj1 Height 5 ft. 10 in. (177.80 cm) (R); Pain 0/10; 19:30 BP 129 / 72; Pulse 64; Resp 18; Pulse Ox 95% on 2 lpm NC; lp1 20:30 BP 133 / 74; Pulse 64; Resp 18; Pulse Ox 96% on 2 lpm NC; lp1 21:17 BP 129 / 85; Pulse 69; Resp 18; Pulse Ox 95% on 2 lpm NC; lp1 22:30 BP 132 / 78; Pulse 75; Resp 18; Pulse Ox 93% on R/A; lp1 23:15 BP 122 / 67; Pulse 78; Resp 18; Temp 98(O); Pulse Ox 94% on R/A; lp1 17:59 Body Mass Index 24.25 (76.66 kg, 177.80 cm) aj1 MDM: 18:20 Patient medically screened. pm1 19:33 Data reviewed: vital signs. pm1 21:15 Counseling: I had a detailed discussion with the patient and/or guardian regarding: lab pm1 results, radiology results. 22:04 ED course: Patient ate sandwich and tolerated cup of water. pm1 22:40 Special discussion: Based on the patient's Hx, exam, and Dx evaluation, there is no pm1 indication for emergent surgery or inpatient Tx. It is understood by the patient/guardian that if the Sx's persist or worsen they need to return immediately for re-evaluation. 22:40 Counseling: I had a detailed discussion with the patient and/or guardian regarding: the pm1 historical points, exam findings, and any diagnostic results supporting the discharge/admit diagnosis, lab results, radiology results, the need for outpatient follow up, to return to the emergency department if symptoms worsen or persist or if there are any questions or concerns that arise at home. 06/21 18:25 Order name: Basic Metabolic Panel pm1 06/21 18:25 Order name: CBC with Diff pm1 06/21 18:25 Order name: Creatinine for Radiology pm1 06/21 18:25 Order name: Hepatic Function pm1 06/21 18:25 Order name: Lipase pm1 06/21 18:25 Order name: Flu pm1 06/21 19:26 Order name: Glucose, Ancillary Testing; Complete Time: 19:28 EDMS 06/21 19:44 Order name: CBC with Automated Diff; Complete Time: 20:06 EDMS 06/21 19:51 Order name: Influenza Screen (A ; Complete Time: 20:06 EDMS 06/21 19:57 Order name: Creatinine (Radiology Only); Complete Time: 20:06 EDMS 06/21 20:05 Order name: CBC Smear Scan; Complete Time: 20:06 EDMS 06/21 20:10 Order name: Basic Metabolic Panel; Complete Time: 20:27 EDMS 06/21 20:10 Order name: Liver (Hepatic) Function; Complete Time: 20:27 EDMS 06/21 20:10 Order name: Lipase; Complete Time: 20:27 EDMS 06/21 18:25 Order name: IV Saline Lock; Complete Time: 19:31 pm1 06/21 18:25 Order name: Labs collected and sent; Complete Time: 19:31 pm1 06/21 18:25 Order name: CT Abd/Pelvis - IV Contrast Only pm1 06/21 21:15 Order name: PO challenge; Complete Time: 21:34 pm1 06/21 21:54 Order name: CT; Complete Time: 21:56 EDMS Administered Medications: 19:56 Drug: NS 0.9% 1000 ml Route: IV; Rate: 1000 ml; Site: left antecubital; lp1 22:30 Follow up: IV Status: Completed infusion; IV Intake: 1000ml lp1 21:25 Drug: Zofran 4 mg Route: IVP; Site: left antecubital; lp1 22:30 Follow up: Response: No adverse reaction lp1 Disposition: 06/22 07:07 Co-signature as Attending Physician, Bobby Romero MD. rn Disposition: 06/21/19 22:42 Discharged to Home. Impression: Vomiting, Diarrhea, unspecified, Dehydration, Bronchitis, not specified as acute or chronic. - Condition is Stable. - Discharge Instructions: Acute Bronchitis, Adult, Dehydration, Elderly, Diarrhea, Adult, Rehydration, Elderly, Vomiting, Adult. - Prescriptions for Zofran 4 mg Oral Tablet - take 1 tablet by ORAL route every 8 hours As needed; 20 tablet. Albuterol Sulfate 90 mcg/actuation - inhale 1-2 puff by INHALATION route every 4-6 hours; 1 Inhaler. Guaifenesin AC 10- 100 mg/5 mL Oral Liquid - take 10 milliliter by ORAL route every 4 hours As needed; 240 milliliter. - Medication Reconciliation Form, Thank You Letter, Antibiotic Education, Prescription Opioid Use form. - Follow up: Emergency Department; When: As needed; Reason: Worsening of condition. Follow up: Dorian Verde MD; When: 2 - 3 days; Reason: Recheck today's complaints, Continuance of care, Re-evaluation by your physician. - Problem is new. - Symptoms have improved. Signatures: Dispatcher [employer] EDMS Hilda Guerra RN RN aj1 Bobby Romero MD MD rn Pena, Laura, RN RN lp1 Saroj Reis, LABEL MACHINE OPERATOR LABEL MACHINE OPERATOR pm1 Corrections: (The following items were deleted from the chart) 06/21 19:41 19:38 Constitutional: Negative for fever, chills, and weight loss, Neck: Negative for pm1 injury, pain, and swelling, Cardiovascular: Negative for chest pain, palpitations, and edema, Respiratory: Negative for shortness of breath, cough, wheezing, and pleuritic chest pain, pm1 22:43 22:42 06/21/2019 22:42 Discharged to Home. Impression: Vomiting; Diarrhea, unspecified. pm1 Condition is Stable. Forms are Medication Reconciliation Form, Thank You Letter, Antibiotic Education, Prescription Opioid Use. Follow up: Emergency Department; When: As needed; Reason: Worsening of condition. Follow up: Dorian Verde; When: 2 - 3 days; Reason: Recheck today's complaints, Continuance of care, Re-evaluation by your physician. Problem is new. Symptoms have improved. pm1 23:20 22:43 06/21/2019 22:42 Discharged to Home. Impression: Vomiting; Diarrhea, unspecified; lp1 Dehydration; Bronchitis, not specified as acute or chronic. Condition is Stable. Discharge Instructions: Diarrhea, Adult, Vomiting, Adult, Acute Bronchitis, Adult. Prescriptions for Zofran 4 mg Oral Tablet - take 1 tablet by ORAL route every 8 hours As needed; 20 tablet, Albuterol Sulfate 90 mcg/actuation - inhale 1-2 puff by INHALATION route every 4-6 hours; 1 Inhaler, Guaifenesin AC 10-100 mg/5 mL Oral Liquid - take 10 milliliter by ORAL route every 4 hours As needed; 240 milliliter. and Forms are Medication Reconciliation Form, Thank You Letter, Antibiotic Education, Prescription Opioid Use. Follow up: Emergency Department; When: As needed; Reason: Worsening of condition. Follow up: Dorian Verde; When: 2 - 3 days; Reason: Recheck today's complaints, Continuance of care, Re-evaluation by your physician. Problem is new. Symptoms have improved. pm1
[2019-06-21 23:41] VITALS: TEMP 98.1
[2019-06-21 23:46] VITALS: BP 129/85; O2SAT 95
== END 2019-06-21 23:20 | disposition home or self-care (01) ==
LOC: ER 17:36
DX: E86.0 Dehydration (principal); J40 Bronchitis, not specified as acute or chronic; R19.7 Diarrhea, unspecified; I10 Essential (primary) hypertension; E11.9 Type 2 diabetes mellitus without complications; E03.9 Hypothyroidism, unspecified; Z79.01 Long term (current) use of anticoagulants; Z79.82 Long term (current) use of aspirin
CPT/HCPCS: 96361; 85025; 80048; 36415; 82947; 80076; 83690; 87804 ×2; 74176; 96374; 99284; J7030; J2405

== ENCOUNTER 2020-03-27 11:03 | Emergency (ER) | payer OTHER ==
[2020-03-27 12:02] LABS: Absolute Lymphocytes (CBC) 0.7 K/uL (0.7-4.9); Basophils % 0.4 % (0-1.3); Hematocrit 35.1 % (39.6-49.0); Lymphocytes % 6.7 % (15.3-44.8); MPV 8.9 fL (7.6-11.3)
[2020-03-27 12:03] LABS: Protime INR 1.18
--- NOTE | 2020-03-27 12:19 | RAD REPORT ---
EXAM DESCRIPTION: CT - CTHCSPWOC - 03/27/2020 12:00 pm CLINICAL HISTORY: Trauma, head and neck injury. fall COMPARISON: No comparisons TECHNIQUE: Axial 5 mm thick images of the head were obtained. Axial 2 mm thick images of the cervical spine were obtained with sagittal and coronal reconstruction images generated and reviewed. All CT scans are performed using dose optimization technique as appropriate and may include automated exposure control or mA/KV adjustment according to patient size. FINDINGS: CT HEAD WITHOUT CONTRAST: No acute hemorrhage, hydrocephalus or extra-axial collection is identified.2 cm area of gliosis relat ed to old infarct is seen in the right basal ganglia.No areas of brain edema or midline shift. High density material seen throughout the paranasal sinuses, suggesting allergic fungal sinusitis.The calvarium is intact. CT CERVICAL SPINE WITHOUT CONTRAST: No fracture or subluxation.Mild cervical degenerative changes.No prevertebral soft tissues swelling i s identified. IMPRESSION: No acute intracranial or cervical spine findings. Allergic fungal sinusitis.
[2020-03-27 12:29] LABS: ALT/SGPT 53 U/L (12-78); AST/SGOT 39 U/L (15-37); Albumin 2.4 g/dL (3.4-5.0); Alkaline Phosphatase 113 U/L (45-117); BUN Blood Urea Nitrogen 21 mg/dL (7-18); Bicarbonate 24 mmol/L (21-32); Bilirubin Direct 0.3 mg/dL (0-0.2); Bilirubin Total 0.6 mg/dL (0.2-1.0); Glucose Level 175 mg/dL (74-106); Magnesium 2.2 mg/dL (1.8-2.4); NT PRO-BNP 770 pg/mL (<450); Potassium 3.8 mmol/L (3.5-5.1); Sodium Level 141 mmol/L (136-145); Troponin (Emerg Dept Use Only) < 0.02 ng/mL (0.0-0.045)
--- NOTE | 2020-03-27 12:46 | RAD REPORT ---
EXAM DESCRIPTION: RAD - Chest Single View - 03/27/2020 12:18 pm CLINICAL HISTORY: FEVER Chest pain. COMPARISON: Chest Single View dated 05/26/2019; Chest Single View dated 05/30/2017; Chest Pa And Lat ( 2 Views) dated 01/03/2017; Chest Single View dated 11/05/2015 FINDINGS: Portable technique limits examination quality. The lungs are grossly clear. The heart is normal in size. No displaced fractures. IMPRESSION: No acute intrathoracic process suspected.
--- NOTE | 2020-03-27 12:47 | RAD REPORT ---
EXAM DESCRIPTION: RAD - Pelvis - 03/27/2020 12:18 pm CLINICAL HISTORY: fall, hip pain COMPARISON: Hip Left 2 View dated 03/27/2020 FINDINGS: Degenerative changes are present in both hips. Large amount of stool is seen the rectum. N o fracture or dislocation is seen. No AVN pattern.
--- NOTE | 2020-03-27 12:48 | RAD REPORT ---
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 No fracture, dislocation or AVN alison jozef.
[2020-03-27] MEDS ORDERED: NA CHLORIDE 0.9% 500 ML ONE (12:51)
[2020-03-27 13:09] LABS: Urine Blood TRACE (NEG); Urine Glucose NEGATIVE (NEG); Urine Protein 2+ (NEG); Urine pH 6.5 (5.0-7.0)
[2020-03-27 13:19] LABS: Urine Bacteria NONE SEEN /HPF (NONE SEEN); Urine RBC <5 /HPF (NONE SEEN)
[2020-03-27 13:21] LABS: Urine Coarse Granular Casts 0-5 /LPF (NONE SEEN)
--- NOTE | 2020-03-27 15:01 | RAD REPORT ---
EXAM DESCRIPTION: RAD - Knee Left 3 View - 03/27/2020 2:35 pm CLINICAL HISTORY: fall, knee pain Fall, pain COMPARISON: No comparisons FINDINGS: [id number] tricompartmental osteoarthritis is present. Trace suprapatellar joint flu id. No acute fracture or dislocation seen.
--- NOTE | 2020-03-27 15:11 | EDPHYS ---
Physician Documentation [facility] Name: Tiffanie Alvarez Age: 75 yrs Sex: Male : 1945 Arrival Date: 03/27/2020 Time: 11:08 Bed 7 Private MD: ED Physician Bobby Romero HPI: 03/27 11:26 This 75 yrs old Male presents to ER via EMS with complaints of Fall Injury, jmm Fever, Weakness. 11:26 Details of fall: The patient fell from an upright position, while standing. Onset: The jmm symptoms/episode began/occurred acutely, just prior to arrival. left hip, left knee. This is a 75 year old male with a history of CVA, DM, HTN, that presents to the ED with complaints of pain to the left knee and the left hip after a fall which occurred just prior to arrival. Patient denies chest pain, shortness of breath headache. Patient's states the patient has had a cough, and fever beginning this past Sunday. . Historical: - Allergies: 11:15 No Known Allergies; tw2 - Home Meds: 11:15 Plavix 75 mg Oral tab 1 tab once daily [Active]; glimepiride 2 mg oral tab 1 tab once tw2 daily [Active]; levothyroxine 25 mcg tab 1 tab once daily [Active]; latanoprost 0.005 % ophthalmic drop 1 drop once daily [Active]; dorzolamide 2 % ophthalmic drop 1 drop 3 times per day [Active]; nexabiotic, once daily [Active]; finasteride 5 mg oral tab 1 tab once daily [Active]; silodosin oral 4 mg oral 1 cap once daily [Active]; rosuvastatin 40 mg oral tab 1 tab once daily [Active]; losartan 50 mg Oral tab 1 tab once daily [Active]; - PMHx: 11:15 BLINDNESS; CVA; Diabetes - NIDDM; Hypertension; hypotension; Hypothyroidism; Irregular tw2 heart rate; 11:16 lung fibrosis; tw2 - Immunization history:: Adult Immunizations. - Social history:: Smoking status: . ROS: 11:26 Constitutional: Negative for fever, chills, and weight loss, Cardiovascular: Negative jmm for chest pain, palpitations, and edema, Respiratory: Negative for shortness of breath, cough, wheezing, and pleuritic chest pain, Abdomen/GI: Negative for abdominal pain, nausea, vomiting, diarrhea, and constipation. 11:26 MS/extremity: Positive for pain. 11:26 All other systems are negative. Exam: 11:26 Constitutional: This is a well developed, well nourished patient who is awake, alert, jmm and in no acute distress. Head/Face: atraumatic. Eyes: EOMI, no conjunctival erythema appreciated ENT: Moist Mucus Membranes Neck: Trachea midline, Supple Chest/axilla: Normal chest wall appearance and motion. 11:26 Abdomen/GI: Non distended, soft Back: Normal ROM Skin: General appearance color normal 11:26 Cardiovascular: Rate: normal, Rhythm: regular, Pulses: no pulse deficits are appreciated. 11:26 Respiratory: the patient does not display signs of respiratory distress, Respirations: normal, Breath sounds: are clear throughout. 11:26 Musculoskeletal/extremity: left hip pain on flexion, left knee ttp anteriorly around his abrasion, compartments are soft, full dorsalis pulse, NVI. 11:26 Skin: Appearance: Color: normal in color. 11:26 Neuro: Orientation: is normal, Mentation: is normal, Memory: is normal. 11:26 Psych: Behavior/mood is pleasant, cooperative. Vital Signs: 11:09 BP 117 / 78; Pulse 78; Resp 18; Temp 98.7(O); Pulse Ox 94% on R/A; Weight 74.84 kg (R); tw2 Height 5 ft. 10 in. (177.80 cm); Pain 0/10; 12:47 BP 110 / 66; Pulse 64; Resp 17; Pulse Ox 96% on R/A; tw2 13:45 BP 108 / 62; Pulse 57; Resp 17; Pulse Ox 95% on R/A; tw2 14:49 BP 101 / 65; Pulse 59; Resp 20; Temp 97.6(O); Pulse Ox 95% on R/A; tw2 15:30 BP 118 / 70; Pulse 57; Resp 17; Pulse Ox 96% on R/A; tw2 11:09 Body Mass Index 23.67 (74.84 kg, 177.80 cm) tw2 MDM: 11:26 Patient medically screened. esvin 15:07 Data reviewed: vital signs, nurses notes. Counseling: I had a detailed discussion with esvin the patient and/or guardian regarding: the historical points, exam findings, and any diagnostic results supporting the discharge/admit diagnosis, lab results, radiology results, the need for outpatient follow up, to return to the emergency department if symptoms worsen or persist or if there are any questions or concerns that arise at home. ED course: Patient is alert and non toxic in appearance in the ED. No signs of resp distress. Patient may have COVID 19 and is given strict return precautions. Patient understood and agrees with the plan of care. . 03/27 11:28 Order name: Basic Metabolic Panel; Complete Time: 12:31 [facility] 03/27 11:28 Order name: CBC with Diff; Complete Time: 12:25 [facility] 03/27 11:28 Order name: LFT's; Complete Time: 12:31 [facility] 03/27 11:28 Order name: Magnesium; Complete Time: 12:31 [facility] 03/27 11:28 Order name: NT PRO-BNP; Complete Time: 12:31 [facility] 03/27 11:28 Order name: PT-INR; Complete Time: 12:25 [facility] 03/27 11:28 Order name: Troponin (emerg Dept Use Only); Complete Time: 12:31 [facility] 03/27 11:28 Order name: Urine Culture [facility] 03/27 11:28 Order name: Urine Microscopic Only; Complete Time: 13:23 [facility] 03/27 11:29 Order name: Blood Culture Adult (2) [facility] 03/27 11:29 Order name: Lactate; Complete Time: 12:25 [facility] 03/27 11:29 Order name: Procalcitonin; Complete Time: 12:51 [facility] 03/27 12:36 Order name: Urine Dipstick--Ancillary (enter results); Complete Time: 13:23 03/27 12:51 Order name: COVID-19 [facility] 03/27 11:28 Order name: XRAY Chest (1 view); Complete Time: 12:51 [facility] 03/27 11:28 Order name: EKG; Complete Time: 11:29 [facility] 03/27 11:28 Order name: Cardiac monitoring; Complete Time: 11:55 [facility] 03/27 11:28 Order name: EKG - Nurse/Tech; Complete Time: 11:55 [facility] 03/27 11:28 Order name: IV Saline Lock; Complete Time: 11:55 [facility] 03/27 11:28 Order name: Labs collected and sent; Complete Time: 11:55 [facility] 03/27 11:28 Order name: O2 Per Protocol; Complete Time: :55 [facility] 03/27 11: Order name: O2 Sat Monitoring; Complete Time: 11:55 [facility] 03/27 11:28 Order name: CT Head C Spine; Complete Time: 12:25 [facility] 03/27 11:28 Order name: Pelvis XRAY; Complete Time: 12:51 [facility] 03/27 11:28 Order name: Straight Cath - Urine; Complete Time: 12:41 [facility] 03/27 11:28 Order name: Hip Left 2 View XRAY; Complete Time: 12:51 [facility] 03/27 13:23 Order name: Knee Left 3 View XRAY; Complete Time: 15:02 [facility] Administered Medications: 12:41 Drug: NS 0.9% 500 ml Route: IV; Rate: bolus; Site: right wrist; tw2 13:45 Follow up: Response: No adverse reaction; IV Status: Completed infusion; IV Intake: tw2 500ml Disposition: 16:01 Co-signature as Attending Physician, Bobby Romero MD. rn Disposition: 03/27/20 15:11 Discharged to Home. Impression: Pain in left knee, Fever, unspecified, Cough. - Condition is Stable. - Discharge Instructions: Fall Prevention in the Home, Knee Pain, COVID-19. - Medication Reconciliation Form, Thank You Letter, Antibiotic Education, Prescription Opioid Use form. - Follow up: Private Physician; When: 2 - 3 days; Reason: Recheck today's complaints, Continuance of care, Re-evaluation by your physician. Signatures: Dispatcher [employer] EDMS Bruno Palmer PA PA jmm Nieto, Roman, MD MD rn Wise, Tara, RN RN tw2 Corrections: (The following items were deleted from the chart) 15:43 15:11 03/27/2020 15:11 Discharged to Home. Impression: Pain in left knee; Fever, tw2 unspecified; Cough. Condition is Stable. Forms are Medication Reconciliation Form, Thank You Letter, Antibiotic Education, Prescription Opioid Use. Follow up: Private Physician; When: 2 - 3 days; Reason: Recheck today's complaints, Continuance of care, Re-evaluation by your physician. jmm
--- NOTE | 2020-03-27 15:11 | ER ---
Nurse's Notes [facility] Name: Tiffanie Alvarez Age: 75 yrs Sex: Male : 1945 Arrival Date: 03/27/2020 Time: 11:08 Bed 7 Private MD: Diagnosis: Pain in left knee;Fever, unspecified;Cough Presentation: 03/27 11:09 Chief complaint: EMS states: pt from home, called us because he was in the tw2 bathroom and fell to his knees, states he has had a fever for 5 days, and his weakness has increased, normally he can ambulate but today he is too weak to do that, we noted temp 100.1, we gave 1000 mg of tylenol, Hx: blindness, htn. Coronavirus screen: fever, Client presents with at least one sign or symptom that may indicate coronavirus-19. Standard/surgical mask placed on the client. Provider contacted for isolation considerations. Ebola Screen: Patient denies travel to an Ebola-affected area in the 21 days before illness onset. Initial Sepsis Screen: Does the patient meet any 2 criteria? No. Patient's initial sepsis screen is negative. Does the patient have a suspected source of infection? No. Patient's initial sepsis screen is negative. Risk Assessment: Do you want to hurt yourself or someone else? Patient reports no desire to harm self or others. Note pt states "i have fibrosis of the lungs as well". Onset of symptoms was March 27, 2020. 11:09 Method Of Arrival: EMS: [facility] tw2 11:09 Acuity: ANDREEA 3 tw2 Triage Assessment: 11:16 General: Appears in no apparent distress. slender, Behavior is calm, cooperative, tw2 appropriate for age. Pain: Denies pain. EENT: Reports "im blind". Historical: - Allergies: 11:15 No Known Allergies; tw2 - Home Meds: 11:15 Plavix 75 mg Oral tab 1 tab once daily [Active]; glimepiride 2 mg oral tab 1 tab once tw2 daily [Active]; levothyroxine 25 mcg tab 1 tab once daily [Active]; latanoprost 0.005 % ophthalmic drop 1 drop once daily [Active]; dorzolamide 2 % ophthalmic drop 1 drop 3 times per day [Active]; nexabiotic, once daily [Active]; finasteride 5 mg oral tab 1 tab once daily [Active]; silodosin oral 4 mg oral 1 cap once daily [Active]; rosuvastatin 40 mg oral tab 1 tab once daily [Active]; losartan 50 mg Oral tab 1 tab once daily [Active]; - PMHx: 11:15 BLINDNESS; CVA; Diabetes - NIDDM; Hypertension; hypotension; Hypothyroidism; Irregular tw2 heart rate; 11:16 lung fibrosis; tw2 - Immunization history:: Adult Immunizations. - Social history:: Smoking status: . Screenin:18 Abuse screen: Denies threats or abuse. Nutritional screening: No deficits noted. tw2 Tuberculosis screening: No symptoms or risk factors identified. Fall Risk Secondary diagnosis (15 points) impaired mobility, CVA, blindness. Assessment: 11:08 General: Appears in no apparent distress. slender, Behavior is calm, cooperative, tw2 appropriate for age. Pain: Denies pain. Neuro: Level of Consciousness is awake, alert, obeys commands, Oriented to person, place, time, situation, Reports weakness "for a few days now". Cardiovascular: Heart tones S1 S2 Patient's skin is warm and dry. Respiratory: Airway is patent Respiratory effort is even, unlabored, Respiratory pattern is regular, symmetrical, Breath sounds are clear bilaterally. Parent/caregiver reports the patient having cough that is non-productive, dry. GI: No signs and/or symptoms were reported involving the gastrointestinal system. Abdomen is flat, Bowel sounds present X 4 quads. : No signs and/or symptoms were reported regarding the genitourinary system. EENT: Parent/caregiver reports the patient having "fever for a few days now too". Derm: No signs and/or symptoms reported regarding the dermatologic system. Skin is intact, is healthy with good turgor, Skin temperature is warm. Musculoskeletal: Range of motion: intact in all extremities. 11:18 Reassessment: Dr. Verde at bedside at this time speaking with . tw2 11:18 Reassessment: reports cough as well. tw2 11:21 Reassessment: provider MATEO Yan at bedside at this time. tw2 12:47 Reassessment: Patient appears in no apparent distress at this time. No changes from tw2 previously documented assessment. Patient and/or family updated on plan of care and expected duration. Pain level reassessed. 13:45 Reassessment: Patient appears in no apparent distress at this time. No changes from tw2 previously documented assessment. Patient and/or family updated on plan of care and expected duration. Pain level reassessed. 14:49 Reassessment: Patient appears in no apparent distress at this time. No changes from tw2 previously documented assessment. Patient and/or family updated on plan of care and expected duration. Pain level reassessed. 15:18 Reassessment: provider at bedside discussing results and plan to discharge at this time.tw2 15:43 Reassessment: Patient appears in no apparent distress at this time. No changes from tw2 previously documented assessment. Patient and/or family updated on plan of care and expected duration. Pain level reassessed. Vital Signs: 11:09 BP 117 / 78; Pulse 78; Resp 18; Temp 98.7(O); Pulse Ox 94% on R/A; Weight 74.84 kg (R); tw2 Height 5 ft. 10 in. (177.80 cm); Pain 0/10; 12:47 BP 110 / 66; Pulse 64; Resp 17; Pulse Ox 96% on R/A; tw2 13:45 BP 108 / 62; Pulse 57; Resp 17; Pulse Ox 95% on R/A; tw2 14:49 BP 101 / 65; Pulse 59; Resp 20; Temp 97.6(O); Pulse Ox 95% on R/A; tw2 15:30 BP 118 / 70; Pulse 57; Resp 17; Pulse Ox 96% on R/A; tw2 11:09 Body Mass Index 23.67 (74.84 kg, 177.80 cm) tw2 ED Course: 11:08 Patient arrived in ED. tw2 11:08 Bed in low position. Call light in reach. Side rails up X2. Adult w/ patient. Cardiac tw2 monitor on. Pulse ox on. NIBP on. 11:12 Triage completed. tw2 11:15 Bruno Palmer PA is PHCP. [facility] 11:15 Bobby Romero MD is Attending Physician. jm 11:16 Arm band placed on. tw2 11:21 Karrie Pillai, ZOHAIB is Primary Nurse. tw2 11:45 Initial lab(s) drawn, by id, sent to lab. First set of blood cultures drawn. Inserted tw2 saline lock: 20 gauge in right wrist, using aseptic technique. Blood collected. 12:01 CT Head C Spine In Process Unspecified. EDMS 12:18 XRAY Chest (1 view) In Process Unspecified. EDMS 12:19 Pelvis XRAY In Process Unspecified. EDMS 12:19 Hip Left 2 View XRAY In Process Unspecified. EDMS 12:35 Straight cath inserted, using sterile technique, 16 Fr. Specimen obtained. Nolvia, tw2 Tech served as animal stunner Returned clear yellow urine. Patient tolerated well. 14:36 Knee Left 3 View XRAY In Process Unspecified. EDMS 15:30 Awaiting: pt spouse at bedside states "i need to go get his clothes out of the car tw2 before he is ready to go home", discharge delayed while waiting on spouse to return to exam room. 15:43 No provider procedures requiring assistance completed. IV discontinued, intact, tw2 bleeding controlled, No redness/swelling at site. Pressure dressing applied. Administered Medications: 12:41 Drug: NS 0.9% 500 ml Route: IV; Rate: bolus; Site: right wrist; tw2 13:45 Follow up: Response: No adverse reaction; IV Status: Completed infusion; IV Intake: tw2 500ml Intake: 13:45 IV: 500ml; Total: 500ml. tw2 Outcome: 15:11 Discharge ordered by . esvin 15:43 Patient left the ED. tw2 15:43 Discharged to home via wheelchair, with significant other. tw2 15:43 Condition: stable 15:43 Discharge instructions given to patient, significant other, Instructed on discharge instructions, follow up and referral plans. Demonstrated understanding of instructions, follow-up care. Addendum: 03/29/2020 10:25 Addendum: Other wifes number is number to call. [phone]. b d 04/01/2020 12:40 Addendum: COVID-19 Result: Negative result given to RN to notify pt. Notified pt of a a5 negative COVID 19 swab results. Pt advised that even with a negative test result they should remain in isolation until symptom free for 3 days without medication. Pt also advised to return to the ED for worsening symptoms. Signatures: Dispatcher [employer] Lila Dye Joel, PA PA jmm Calderon, Audri, RN RN aa5 Karrie Pillai RN RN tw2 Corrections: (The following items were deleted from the chart) 03/27 11:17 11:08 Warm blanket given. 11:08 Warm blanket given. tw
[2020-03-27 19:11] VITALS: O2SAT 95
[2020-03-27 19:13] VITALS: BP 101/65; TEMP 97.6
== END 2020-03-27 15:43 | disposition home or self-care (01) ==
LOC: ER 11:03
DX: M25.562 Pain in left knee (principal); M25.552 Pain in left hip; R50.9 Fever, unspecified; R05 Cough; W18.30XA Fall on same level, unspecified, initial encounter; Y93.9 Activity, unspecified; Y92.9 Unspecified place or not applicable; Z20.828 Contact with and (suspected) exposure to other viral communicable diseases; Z79.01 Long term (current) use of anticoagulants; Z86.73 Personal history of transient ischemic attack (TIA), and cerebral infarction without residual deficits; I10 Essential (primary) hypertension; E11.9 Type 2 diabetes mellitus without complications; E03.9 Hypothyroidism, unspecified
CPT/HCPCS: 93005; 87040 ×2; 87088; 85025; 87086; 80048; 36415; 83735; 85610; 80076; 83605; 84484; 84145; 83880; 70450; 72125; 71045; 72170; 73502; 73562; 51702; 96360; 99284; U0002; J7040; 81003; 81015

== ENCOUNTER 2020-04-09 23:54 | Inpatient (IN) | payer OTHER ==
[2020-04-10 01:13] LABS: Absolute Lymphocytes (CBC) 0.8 K/uL (0.7-4.9); Basophils % 0.3 % (0-1.3); Hematocrit 34.2 % (39.6-49.0); Lymphocytes % 6.2 % (15.3-44.8); MPV 8.1 fL (7.6-11.3); RBC Red Blood Cell Count 3.63 M/uL (4.33-5.43)
[2020-04-10 01:16] LABS: Protime INR 1.26
[2020-04-10 01:46] LABS: ALT/SGPT 48 U/L (12-78); AST/SGOT 54 U/L (15-37); Albumin 1.6 g/dL (3.4-5.0); Alkaline Phosphatase 145 U/L (45-117); BUN Blood Urea Nitrogen 25 mg/dL (7-18); Bicarbonate 23 mmol/L (21-32); Bilirubin Direct 0.3 mg/dL (0-0.2); Bilirubin Total 0.5 mg/dL (0.2-1.0); Ferritin 2114.2 ng/mL (26-388); Glucose Level 100 mg/dL (74-106); Lipase 406 U/L (73-393); Potassium 3.8 mmol/L (3.5-5.1); Protein, Total 8.1 g/dL (6.4-8.2); Sodium Level 138 mmol/L (136-145); Troponin (Emerg Dept Use Only) < 0.02 ng/mL (0.0-0.045)
--- NOTE | 2020-04-10 01:57 | ER ---
Nurse's Notes [facility] Name: Tiffanie Alvarez Age: 75 yrs Sex: Male : 1945 Arrival Date: 04/09/2020 Time: 23:58 Bed 7 Private MD: Diagnosis: Pneumonia due to other specified bacteria;Hypoxemia;Weakness Presentation: 04/10 00:41 Chief complaint: Spouse and/or significant other states: states patient was lp1 diagnosed with pneumonia, began on oral Levaquin 4 days ago but is concerned patient is getting worse; Reports lethargic, unable to stand due to weakness, urinating frequently; Negative urine screen at PCP. Coronavirus screen: Client denies travel out of the [place] in the last 14 days. The client reports previous COVID testing was negative. Date of collection: March 27, 2020. Ebola Screen: No symptoms or risks identified at this time. Initial Sepsis Screen: Does the patient meet any 2 criteria? No. Patient's initial sepsis screen is negative. Does the patient have a suspected source of infection? No. Patient's initial sepsis screen is negative. Initial Sepsis Screen: Does the patient meet any 2 criteria?. Risk Assessment: Do you want to hurt yourself or someone else? Patient reports no desire to harm self or others. Onset of symptoms was April 10, 2020. 00:41 Method Of Arrival: Wheelchair lp1 00:41 Acuity: ANDREEA 3 lp1 Triage Assessment: 00:47 Respiratory: Onset: The symptoms/episode began/occurred gradually, the patient has mild lp1 shortness of breath. Historical: - Allergies: 00:45 No Known Allergies; lp1 - Home Meds: 00:45 glimepiride 2 mg Oral tab 1 tab once daily [Active]; levothyroxine 25 mcg tab 1 tab lp1 once daily [Active]; Plavix 75 mg Oral tab 1 tab once daily [Active]; finasteride 5 mg Oral tab 1 tab once daily [Active]; rosuvastatin 40 mg Oral tab 1 tab once daily [Active]; losartan 50 mg Oral tab 1 tab once daily [Active]; latanoprost 0.005 % ophthalmic drop 1 drop once daily [Active]; dorzolamide 2 % ophthalmic drop 1 drop 3 times per day [Active]; nexabiotic, once daily [Active]; silodosin 4 mg Oral 1 cap once daily [Active]; - PMHx: 00:45 BLINDNESS; CVA; Diabetes - NIDDM; Hypertension; hypotension; Hypothyroidism; Irregular lp1 heart rate; lung fibrosis; Myocardial infarction; - PSHx: 00:45 Heart stents; lp1 - Immunization history:: Adult Immunizations up to date. - Social history:: Smoking status: Patient denies any tobacco usage or history of. Screenin:45 Abuse screen: Denies threats or abuse. Denies injuries from another. Nutritional lp1 screening: No deficits noted. Tuberculosis screening: No symptoms or risk factors identified. Fall Risk Total Junior Fall Scale indicates High Risk Score (45 or more points). Fall prevention measures have been instituted. Side Rails Up X 2 Frequent Obs/Assessments Occuring Family Present and informed to notify staff if the need to leave the bedside. Assessment: 00:46 General: Appears in no apparent distress. Behavior is appropriate for age. Pain: Denies lp1 pain. Neuro: Level of Consciousness is obeys commands, lethargic, Oriented to person, place, situation, Reports weakness generalized. Cardiovascular: Patient's skin is warm and dry. Rhythm is sinus rhythm. Respiratory: Reports cough that is productive, persistent Airway is patent Trachea midline Respiratory effort is even, Respiratory pattern is regular, Breath sounds with crackles in left posterior lower lobe and right posterior lower lobe. GI: Abdomen is flat. : Parent/caregiver report the patient having urinary frequency. EENT: No signs and/or symptoms were reported regarding the EENT system. Derm: Skin is fragile, is thin, Skin is dry, Skin is normal. Musculoskeletal: No deficits noted. 01:26 Reassessment: Patient reports refusal for ngo catheter. lp1 01:51 Reassessment: Verbal order for NS 500ml bolus IV. lp1 02:00 Reassessment: Patient appears in no apparent distress at this time. Dr. Zuñiga at lp1 bedside to discuss results and plan of care with patient and . 03:30 Reassessment: Patient appears in no apparent distress at this time. Patient and/or lp1 family updated on plan of care and expected duration. Pain level reassessed. Patient resting, respiration even; aware of pending admission. Vital Signs: 00:41 BP 108 / 63; Pulse 77; Resp 20; Temp 98.8(O); Pulse Ox 93% on R/A; Weight 70.76 kg (R); lp1 Pain 0/10; 01:27 BP 101 / 67; Pulse 69; Resp 22; Pulse Ox 94% on R/A; lp1 02:30 BP 120 / 75; Pulse 66; Resp 22; Pulse Ox 96% on R/A; lp1 03:30 BP 115 / 77; Pulse 63; Resp 15; Pulse Ox 97% on R/A; lp1 04:00 BP 118 / 74; Pulse 64; Resp 14; Pulse Ox 96% on R/A; lp1 ED Course: 04/09 23:58 Patient arrived in ED. am2 12/12 00:25 Elier Zuñiga MD is Attending Physician. tw4 00:41 Radha Lance, ZOHAIB is Primary Nurse. lp1 00:43 Triage completed. lp1 00:43 Arm band placed on. lp1 00:45 Patient has correct armband on for positive identification. Placed in gown. Bed in low lp1 position. Side rails up X2. cardiac monitor on. Pulse ox on. NIBP on. 01:00 Inserted saline lock: 20 gauge in left forearm, using aseptic technique. Blood oe collected. 01:01 CXR XRAY In Process Unspecified. EDMS 01:56 Dorian Verde MD is Hospitalizing Provider. tw4 04:07 No provider procedures requiring assistance completed. Patient admitted, IV remains in lp1 place. Administered Medications: 02:07 Drug: NS 0.9% 500 ml Route: IV; Rate: bolus; Site: left wrist; lp1 03:00 Follow up: IV Status: Completed infusion; IV Intake: 500ml lp1 02:38 Drug: Rocephin - (cefTRIAXone) 1 grams {Note: Administered IVP per provider jb4 instructions and Pharmacy protocol..} Route: IVPB; Infused Over: 30 mins; Site: left wrist; 02:41 Follow up: IV Status: Completed infusion; IV Intake: 10ml jb4 02:43 Drug: AZITHromycin 500 mg Route: IVPB; Infused Over: 1 hrs; Site: left wrist; jb4 04:11 Follow up: IV Status: Completed infusion; IV Intake: 250ml lp1 Intake: 02:41 IV: 10ml; Total: 10ml. jb4 03:00 IV: 500ml; Total: 510ml. lp1 04:11 IV: 250ml; Total: 760ml. lp1 Outcome: 01:57 Decision to Hospitalize by Provider. tw4 04:07 Admitted to Med/surg via stretcher, room 207, with chart, Report called to ZOHAIB Jin lp1 04:07 Condition: stable 04:07 Instructed on the need for admit. 04:42 Patient left the ED. lp1 Signatures: Dispatcher [employer] EDRadha Collins RN RN lp1 Mitch Velazquez RN RN jb4 Brayan Barragan Amanda am2 Elier Zuñiga MD MD tw4 Corrections: (The following items were deleted from the chart) 03:19 00:46 Cardiovascular: Patient's skin is warm and dry. lp1 lp1
--- NOTE | 2020-04-10 01:57 | EDPHYS ---
Physician Documentation [facility] Name: Tiffanie Alvarez Age: 75 yrs Sex: Male : 1945 Arrival Date: 04/09/2020 Time: 23:58 Bed 7 Private MD: ED Physician Elier Zuñiga HPI: 04/10 02:39 This 75 yrs old Male presents to ER via Wheelchair with complaints of Fever, tw4 Shortness Of Breath. 02:39 The patient reports fever, not measured (subjective). Onset: The symptoms/episode tw4 began/occurred 1 week(s) ago. Associated signs and symptoms: Pertinent positives: cough, MALAISE. The patient has not experienced similar symptoms in the past. Historical: - Allergies: 00:45 No Known Allergies; lp1 - Home Meds: 00:45 glimepiride 2 mg Oral tab 1 tab once daily [Active]; levothyroxine 25 mcg tab 1 tab lp1 once daily [Active]; Plavix 75 mg Oral tab 1 tab once daily [Active]; finasteride 5 mg Oral tab 1 tab once daily [Active]; rosuvastatin 40 mg Oral tab 1 tab once daily [Active]; losartan 50 mg Oral tab 1 tab once daily [Active]; latanoprost 0.005 % ophthalmic drop 1 drop once daily [Active]; dorzolamide 2 % ophthalmic drop 1 drop 3 times per day [Active]; nexabiotic, once daily [Active]; silodosin 4 mg Oral 1 cap once daily [Active]; - PMHx: 00:45 BLINDNESS; CVA; Diabetes - NIDDM; Hypertension; hypotension; Hypothyroidism; Irregular lp1 heart rate; lung fibrosis; Myocardial infarction; - PSHx: 00:45 Heart stents; lp1 - Immunization history:: Adult Immunizations up to date. - Social history:: Smoking status: Patient denies any tobacco usage or history of. ROS: 02:39 Cardiovascular: Negative for chest pain, palpitations, and edema, Abdomen/GI: Negative tw4 for abdominal pain, nausea, vomiting, diarrhea, and constipation, Back: Negative for injury and pain, MS/Extremity: Negative for injury and deformity, Skin: Negative for injury, rash, and discoloration. 02:39 Constitutional: Positive for fever, malaise, poor PO intake. 02:39 Respiratory: Positive for cough, shortness of breath. 02:39 Neuro: Positive for weakness, Negative for altered mental status, dizziness, gait disturbance, headache, hearing loss, loss of consciousness, numbness, seizure activity, speech changes, syncope, near syncope, tingling, tinnitus, tremor, visual changes. Vital Signs: 00:41 BP 108 / 63; Pulse 77; Resp 20; Temp 98.8(O); Pulse Ox 93% on R/A; Weight 70.76 kg (R); lp1 Pain 0/10; 01:27 BP 101 / 67; Pulse 69; Resp 22; Pulse Ox 94% on R/A; lp1 02:30 BP 120 / 75; Pulse 66; Resp 22; Pulse Ox 96% on R/A; lp1 03:30 BP 115 / 77; Pulse 63; Resp 15; Pulse Ox 97% on R/A; lp1 04:00 BP 118 / 74; Pulse 64; Resp 14; Pulse Ox 96% on R/A; lp1 MDM: 00:25 Patient medically screened. tw4 06:55 Differential diagnosis: viral Infection, bacterial infection. Data reviewed: vital tw4 signs, nurses notes. Data interpreted: Pulse oximetry: Interpretation: normal. Counseling: I had a detailed discussion with the patient and/or guardian regarding: the historical points, exam findings, and any diagnostic results supporting the discharge/admit diagnosis, lab results, radiology results. Physician consultation: Dorian Verde MD regarding admission, to the telemetry unit. patient's condition, and will see patient in inpatient room, tomorrow. Admission orders: after a detailed discussion of the patient's condition and case, the admit orders are written by me. Special discussion:. 04/10 00:26 Order name: Blood Culture Adult (2) tw4 04/10 00:26 Order name: BMP 4 04/10 00: Order name: C-Reactive Protein 4 04/10 00: Order name: CBC with Diff 4 04/10 00:26 Order name: COVID-19 4 04/10 00:26 Order name: Ferritin tw4 04/10 00:26 Order name: Flu 4 04/10 00: Order name: Lactate 4 04/10 00: Order name: LFT's 4 12/12 00:26 Order name: Lipase; Complete Time: :04/10 01:58 Interpretation: Abnormal: LIP 406. 04/10 00:26 Order name: Procalcitonin; Complete Time: : 04/10 01:58 Interpretation: Abnormal: Procalcitonin 0.57. 04/10 00:26 Order name: PT-INR; Complete Time: : 04/10 01:58 Interpretation: Normal except: PT 14.8. 04/10 00:26 Order name: Ptt, Activated; Complete Time: 04/10 00:26 Order name: Strep; Complete Time: 04/10 00:26 Order name: Troponin (emerg Dept Use Only); Complete Time: 04/10 00:26 Order name: Urine Microscopic Only 04/10 00:27 Order name: Blood Culture EDDE 04/10 00:27 Order name: Basic Metabolic Panel; Complete Time: [facility] 04/10 01:58 Interpretation: Abnormal: BUN 25; GFR 55. 04/10 00:27 Order name: C-Reactive Protein; Complete Time: [place] 04/10 01:58 Interpretation: Abnormal: C-REACTIVE PROT 232.00. 04/10 00:27 Order name: CBC with Automated Diff; Complete Time: :[place] 04/10 01:59 Interpretation: Normal except: WBC 13.1; RBC 3.63; HGB 11.2; HCT 34.2; PLT 378; LYM% tw4 6.2; ALEKSANDER% 83.8; NEUT A 10.9. 04/10 00:27 Order name: Ferritin; Complete Time: :[place] 04/10 01:59 Interpretation: Abnormal: ELIZ 2114.2. 04/10 00:27 Order name: Influenza Screen (A ; Complete Time: :DE 04/10 00:27 Order name: Lactate; Complete Time: :DE 04/10 01:57 Interpretation: Within normal limits: LAC 1.4. 04/10 00:27 Order name: Liver (Hepatic) Function; Complete Time: :DE 04/10 01:59 Interpretation: Normal except: AST 54; ALK 145; BILID 0.3; ALB 1.6; GLOB 6.5; A/G 0.2. tw4 04/10 01:45 Order name: Throat Culture EDMS 04/10 02:15 Order name: Basic Metabolic Panel EDMS 04/10 02:15 Order name: Basic Metabolic Panel EDMS 04/10 02:15 Order name: CBC with Automated Diff EDMS 04/10 02:15 Order name: CBC with Automated Diff EDMS 04/10 00:26 Order name: CXR XRAY tw4 04/10 00:26 Order name: EKG; Complete Time: 00:28 tw4 04/10 00:26 Order name: Cardiac monitoring; Complete Time: 00:48 tw4 04/10 00:26 Order name: Droplet/Contact Precautions; Complete Time: 00:48 tw4 04/10 00:26 Order name: EKG - Nurse/Tech; Complete Time: 01:25 tw4 04/10 00:26 Order name: IV Start; Complete Time: 01:25 tw4 04/10 00:26 Order name: Labs collected and sent; Complete Time: 01:25 tw4 04/10 00:26 Order name: O2 Per Protocol; Complete Time: 00:47 tw4 04/10 00:26 Order name: O2 Sat Monitoring; Complete Time: 00:47 tw4 04/10 02:15 Order name: NT PRO-BNP EDDE 04/10 02:15 Order name: NT PRO-BNP EDDE 04/10 02:15 Order name: Troponin I EDDE 04/10 02:15 Order name: Troponin I EDDE 04/10 02:15 Order name: Troponin I EDDE 04/10 03:04 Order name: SARS-COV-2 RT PCR EDDE 04/10 03:07 Order name: Urine Dipstick--Ancillary (enter results) tt3 04/10 03:33 Order name: Urine Dipstick-Ancillary EDMS EC:59 Rate is 69 beats/min. Rhythm is regular. QRS [place] is Normal. [place] interval is normal. QRS tw4 interval is normal. QT interval is normal. No Q waves. T waves are Normal. No ST changes noted. Clinical impression: 1st degree heart block. Interpreted by me. Reviewed by me. Administered Medications: 02:07 Drug: NS 0.9% 500 ml Route: IV; Rate: bolus; Site: left wrist; lp1 03:00 Follow up: IV Status: Completed infusion; IV Intake: 500ml lp1 02:38 Drug: Rocephin - (cefTRIAXone) 1 grams {Note: Administered IVP per provider jb4 instructions and Pharmacy protocol..} Route: IVPB; Infused Over: 30 mins; Site: left wrist; 02:41 Follow up: IV Status: Completed infusion; IV Intake: 10ml jb4 02:43 Drug: AZITHromycin 500 mg Route: IVPB; Infused Over: 1 hrs; Site: left wrist; jb4 04:11 Follow up: IV Status: Completed infusion; IV Intake: 250ml lp1 Disposition: 04/10/20 01:57 Hospitalization ordered by Dorian Verde for Inpatient Admission. Preliminary diagnosis are Pneumonia due to other specified bacteria, Hypoxemia, Weakness. - Bed requested for Telemetry/MedSurg (Inpatient). - Status is Inpatient Admission. lp1 - Condition is Stable. - Problem is an ongoing problem. - Symptoms have worsened. Addendum: 04/26/2020 06:04 Addendum: PHYSICAL EXAM: General: well developed well nourished male in NAD, HEENT: t w4 PERRLA, EOMI, CV:RRR, nl S1, S2 no murmurs no gallops Resp: CTAB, no resp distress, no wheezes, no rales Abdomen: soft ND, NT nl BS Ext: nontender, no edema Neuro: alert and oriented times CN grossly intact, strength, sensation and reflexes grossly normal . Signatures: Dispatcher [employer] EDDE Tiffanie Jimenez RN RN kl Pena, Laura, RN RN [facility] Mitch Velazquez RN RN Elier Reis MD MD 4 Corrections: (The following items were deleted from the chart) 04/10 00:47 00:26 [facility] [phone]/ ordered. 4 1 00:48 00:26 Document PUI# ordered. 4 1 02:11 00:27 CORONAVIRUS ordered. [facility] EDDE 03:21 01:57 Hospitalization Ordered by Dorian Verde MD for Inpatient Admission. Preliminary kl diagnosis is Pneumonia due to other specified bacteria; Hypoxemia; Weakness. Bed requested for Telemetry/MedSurg (Inpatient). Status is Inpatient Admission. Condition is Stable. Problem is an ongoing problem. Symptoms have worsened. tw4 04:42 03:21 04/10/2020 01:57 Hospitalization Ordered by Dorian Verde MD for Inpatient lp1 Admission. Preliminary diagnosis is Pneumonia due to other specified bacteria; Hypoxemia; Weakness. Bed requested for Telemetry/MedSurg (Inpatient). Status is Inpatient Admission. Condition is Stable. Problem is an ongoing problem. Symptoms have worsened. kl
[2020-04-10] MEDS ORDERED: NA CHLORIDE 0.9% 500 ML ONE (02:08)
[2020-04-10] MEDS ORDERED: ACETAMINOPHEN 500 MG TAB PO PRN (02:13)
[2020-04-10] MEDS ORDERED: ALBUTEROL 2.5 MG/3 ML NEB SOL NEB PRN (02:13)
[2020-04-10] MEDS ORDERED: IPRATROPIUM BROM 0.5MG/2.5ML NEB PRN (02:13)
[2020-04-10] MEDS ORDERED: AZITHROMYCIN 500 MG INJ IVPB ONE (02:40)
[2020-04-10] MEDS ORDERED: CEFTRIAXONE/SWI 1gm 1 GM/10 ML SYR ONE (02:41)
[2020-04-10] MEDS ORDERED: NA CHLORIDE 0.9% 250 ML ONE (02:41)
[2020-04-10 03:28] LABS: Urine Bacteria >50 /HPF (NONE SEEN); Urine Coarse Granular Casts FEW /LPF (NONE SEEN); Urine Mucus 2+ /HPF (NONE SEEN)
[2020-04-10 03:33] LABS: Urine Blood 2+ (NEG); Urine Glucose NEGATIVE (NEG); Urine Protein 2+ (NEG)
[2020-04-10] MEDS ORDERED: GLUCAGON 1 MG/VIAL IM PRN (04:29)
[2020-04-10] MEDS ORDERED: D50W 25 GM/50 ML SYRINGE IV PRN (04:29)
[2020-04-10 05:33] VITALS: BMI 21.9
[2020-04-10] MEDS: ACIDOPH PARACASEI B LACTIS PO SCH (06:30)
[2020-04-10] MEDS: LEVOTHYROXINE SODIUM 25 MCG PO SCH (06:30)
[2020-04-10] MEDS: CLOPIDOGREL 75 MG TABLET PO SCH (06:36)
[2020-04-10 07:00] LABS: MPV 7.9 fL (7.6-11.3)
[2020-04-10 07:22] LABS: Platelet Estimate ADEQ
[2020-04-10] MEDS: INSULIN -REGULAR HUMAN 50 UNIT/0.5 ML ML SQ SCH ×4 (07:30→19:57)
[2020-04-10] MEDS: DORZOLAMIDE HCL OPTH SCH ×2 (09:00→19:57)
[2020-04-10] MEDS: CHOLECALCIFEROL 125 MCG PO SCH (09:00)
[2020-04-10] MEDS: GLIMEPIRIDE 2 MG TABLET PO SCH (10:38)
[2020-04-10] MEDS: levoFLOXacin 500 MG TAB PO SCH (10:38)
[2020-04-10] MEDS: ENOXAPARIN 40 MG/0.4 ML SQ SCH (10:38)
--- NOTE | 2020-04-10 11:01 | RAD REPORT ---
EXAM DESCRIPTION: Abe Single View04/10/2020 1:01 am CLINICAL HISTORY: sob COMPARISON: 04 March 2020 FINDINGS: Left lower lobe consolidation The remainder of the lungs appear clear of acute infiltrate. The heart is normal size IMPRESSION: Left lower lobe consolidation likely pneumonia
--- NOTE | 2020-04-10 12:32 | P.SSS ---
Patient History Date of Service: 04/10/20 Reason for admission: FEVER, COUGH History of Present Illness: MR. MARIANO HAS FEVER AND COUGH HE SAYS FOR 2 WEEKS. I AM NOT SURE ABOUT FEVER FOR 2 WEEKS. HE HAS NOT MENTIONED IT BEFORE. ON CXR HE HAS PNEUMONIA. Allergies No Known Allergies Allergy (Verified 11/25/15 08:55) Home Medications: Cholecalciferol (Vitamin D3) [Vitamin D3] 1 tab PO DAILY 04/10/20 Clopidogrel Bisulfate [Plavix*] 75 [place] [address]04/10/20 Dorzolamide HCl [Trusopt] 1 drop EACH EYE BID 04/10/20 Finasteride [Proscar*] 5 mg PO 1700 04/10/20 Glimepiride 2 mg PO 0800 04/10/20 L.acidoph,Paracasei, B.lactis [Probiotic] 1 [place] [address]/10/20 Latanoprost/Pf [Latanoprost 0.005% Eye Drop] 1 drop EACH EYE BEDTIME 04/10/20 Levothyroxine Sodium [Levothyroxine] [place] [address]/10/20 Losartan Potassium 50 mg PO BEDTIME 04/10/20 Rosuvastatin Calcium 40 mg PO BEDTIME 04/10/20 - Past Medical/Surgical History Has patient received pneumonia vaccine in the past: Yes Diabetic: Yes -: HTN -: DIABETES- NIDDM -: CATARACT SX TO RIGHT EYE- March -: Right 5th toe amputation - Family History Mother -: Hypertension, Diabetes - Social History Smoking Status: Never smoker Alcohol use: No CD- Drugs: No Caffeine use: No Place of Residence: Home Review of Systems 10-point ROS is otherwise unremarkable General: Weakness Physical Examination - Vital Signs Temperature: 97.3 F Blood Pressure: 118/77 Pulse: 61 Respirations: 20 Pulse Ox (%): 96 - Physical Exam General: Oriented x3, Other (BLIND TOTALLY. ) HEENT: Atraumatic, PERRLA, Mucous membr. moist/pink, EOMI, Sclerae nonicteric Neck: Supple, 2+ carotid pulse no bruit, No LAD, Without JVD or thyroid abnormality Respiratory: Clear to auscultation bilaterally, Normal air movement Cardiovascular: Regular rate/rhythm, Normal S1 S2 Gastrointestinal: Normal bowel sounds, No tenderness Musculoskeletal: No tenderness Integumentary: No rashes Neurological: Normal gait, Normal speech, Normal strength at 5/5 x4 extr, Normal tone, Normal affect Lymphatics: No axilla or inguinal lymphadenopathy - Studies Laboratory Data (last 24 hrs) 04/10/20 00:56: PT 14.8 H, INR 1.26, APTT 29.9 04/10/20 00:56: WBC 13.1 H D, Hgb 11.2 L, Hct 34.2 L, Plt Count 378 D 04/10/20 00:56: Sodium 138, Potassium 3.8, BUN 25 H, Creatinine 1.27, Glucose 100, Total Bilirubin 0.5, AST 54 H, ALT 48, Alkaline Phosphatase 145 H, Lipase 406 H Microbiology Data (last 24 hrs): 04/10/20 01:12 Nasopharnyx Influenza Type A Antigen Screen - Final 04/10/20 01:12 Nasopharnyx Influenza Type B Antigen Screen - Final 04/10/20 01:12 Throat Group A Streptococcus Rapid Screen - Final - Diagnosis (Problem(s)) (1) Lobar pneumonia Current Visit: Yes Status: Acute Plan: I ORDERED CT CHEST AND ABDOMEN HE MAY HAVE OTHER REASONS FOR FEVER. HI FERRITIN IS VERY HIGH. THIS CAN BE AN ACUTE PHASE REACTANT. WILL FU ON IT. WILL RULE OUT HEMOCHROMATOSIS. PER CURB 65. HE IS NOT CONFUSED, UREA IS NOT HIGH, RESPIRATORY RATE IS NOT HIGH, BP IS NORMAL. HE MEETS ONLY ONE [facility] SO HE CAN DO OUTPATIENT THERAPY. WILL DISCHARGE HIM IN AM IF STABLE. (2) Diabetes Current Visit: No Status: Chronic Plan: CHECK A1C LDL - Disposition Disposition: ROUTINE DISCHARGE
--- NOTE | 2020-04-10 13:38 | RAD REPORT ---
EXAM DESCRIPTION: CT - Chest For Pe Angio - 04/10/2020 1:25 pm CLINICAL HISTORY: Chest pain COMPARISON: None. TECHNIQUE: Dynamically enhanced axial 3 mm thick images of the chest were obtained during administra tion of <100> mL Isovue 370 IV contrast. Coronal and oblique reconstruction images were generated and reviewed. Exam utilizes a protocol for optimal evaluation of pulmonary arterial tree. Maximum intensity projections 3D imaging was utilized All CT scans are performed using dose optimization technique as appropriate and may include automated exposure control or mA/KV adjustment according to patient size. FINDINGS: A pulmonary embolus is not seen. A thoracic aortic aneurysm is not noted. A pleural effusion is not seen. A pericardial effusion is not seen. 8 centimeter left lower lobe consolidation IMPRESSION: Negative for a pulmonary embolism. 8 centimeter left lower lobe consolidation probably pneumonia. This should be followed until it is cl ear to help exclude a post obstructive process/underlying mass
--- NOTE | 2020-04-10 13:51 | RAD REPORT ---
EXAM DESCRIPTION: CT - Abdomen Pelvis W Contrast - 04/10/2020 1:25 pm CLINICAL HISTORY: Abdominal pain/fever COMPARISON: May 2019 TECHNIQUE: Computed axial tomography of the abdomen pelvis was obtained. 100 cc Isovue-300 was admin istered intravenously. Oral contrast was given All CT scans are performed using dose optimization technique as appropriate and may include automated exposure control or mA/KV adjustment according to patient size. FINDINGS: 23 millimeter mass within the pancreatic neck. It has a low-density center and enhancing p eriphery. The remainder of the pancreas, liver, spleen, adrenals and kidneys are unremarkable There is no evidence of diverticulitis. Normal appendix The prostate gland is mildly to moderately enlarged. Prostatic tissue in density posterior bladder wa ll. 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 Neoplasm can have this appearan ce but is probably less likely. This should be correlated with appropriate lab values Mild bladder wall thickening could be related to a bladder outlet obstruction or cystitis
[2020-04-10] MEDS ORDERED: FINASTERIDE 5 MG PO SCH (17:00)
[2020-04-10] MEDS ORDERED: ROSUVASTATIN CALCIUM 40 MG PO SCH (21:00)
[2020-04-10] MEDS ORDERED: LATANOPROST OPTH SCH (21:00)
[2020-04-10] MEDS ORDERED: LOSARTAN POTASSIUM 50 MG PO SCH (21:00)
[2020-04-10] MEDS ORDERED: MELATONIN 5 MG TABLET PO SCH (22:24)
[2020-04-11] MEDS: LEVOTHYROXINE SODIUM 25 MCG PO SCH (06:30)
[2020-04-11] MEDS: ACIDOPH PARACASEI B LACTIS PO SCH (06:30)
[2020-04-11] MEDS: CLOPIDOGREL 75 MG TABLET PO SCH (06:39)
[2020-04-11 07:03] LABS: Absolute Lymphocytes (CBC) 1.5 K/uL (0.7-4.9); Basophils % 0.2 % (0-1.3); Hematocrit 31.1 % (39.6-49.0); Lymphocytes % 15.5 % (15.3-44.8); MPV 7.6 fL (7.6-11.3); RBC Red Blood Cell Count 3.33 M/uL (4.33-5.43)
[2020-04-11 07:20] LABS: Potassium 4.2 mmol/L (3.5-5.1)
[2020-04-11] MEDS: INSULIN -REGULAR HUMAN 50 UNIT/0.5 ML ML SQ SCH ×2 (07:30→11:30)
[2020-04-11] MEDS: GLIMEPIRIDE 2 MG TABLET PO SCH (08:00)
[2020-04-11] MEDS: ENOXAPARIN 40 MG/0.4 ML SQ SCH (08:22)
[2020-04-11] MEDS: levoFLOXacin 500 MG TAB PO SCH (08:23)
[2020-04-11] MEDS: DORZOLAMIDE HCL OPTH SCH (08:25)
[2020-04-11] MEDS: CHOLECALCIFEROL 125 MCG PO SCH (08:25)
[2020-04-11 09:11] VITALS: BP 101/57; TEMP 98.4
[2020-04-11 12:33] VITALS: O2SAT 92
[2020-04-11] MEDS ORDERED: LOSARTAN POTASSIUM 50 MG TABLET PO SCH (21:00)
[2020-04-11] MEDS ORDERED: MELATONIN 5 MG TABLET PO SCH (21:00)
[2020-04-11] MEDS ORDERED: ROSUVASTATIN 10 MG TAB PO SCH (21:00)
[2020-04-12] MEDS ORDERED: LEVOTHYROXINE SOD 0.025 MG TAB PO SCH (06:30)
== END 2020-04-11 13:10 | disposition home or self-care (01) | DRG 195 ==
LOC: ER 23:54 → ERHOLD 04-10 02:11 → 2ND 04-10 04:23
PROVIDERS: ADMIT Internal Medicine; ATTEND Internal Medicine
DX: J18.1 Lobar pneumonia, unspecified organism (principal); I10 Essential (primary) hypertension; E11.9 Type 2 diabetes mellitus without complications; E03.9 Hypothyroidism, unspecified; K86.9 Disease of pancreas, unspecified; I25.2 Old myocardial infarction; H54.8 Legal blindness, as defined in USA; Z79.02 Long term (current) use of antithrombotics/antiplatelets; Z79.84 Long term (current) use of oral hypoglycemic drugs; Z79.890 Hormone replacement therapy; Z79.899 Other long term (current) drug therapy; Z89.421 Acquired absence of other right toe(s); Z86.73 Personal history of transient ischemic attack (TIA), and cerebral infarction without residual deficits; Z95.5 Presence of coronary angioplasty implant and graft; Z20.828 Contact with and (suspected) exposure to other viral communicable diseases
CPT/HCPCS: 36415; 71045; 71275; 74177; 80048; 80076; 81003; 81015; 82728; 82947; 83605; 83690; 84145; 84484; 85025; 85049; 85610; 85730; 86140; 87040; 87070; 87081; 87086; 87088; 87804; 93005; 94760; 96361; 96365; 96375; 99285; J0456; J0696; J1650; J7040; J7050; Q9967; U0003

== ENCOUNTER 2021-01-01 04:59 | Observation (INO) | payer OTHER ==
--- OUTSIDE RECORDS SUMMARY | 2021-01-01 05:02 | XMS REPORT | Continuity of Care Document ---
:1945 Author Organization [facility] t Address [address] [place] [address] Care Team Providers Name Role Phone Israel ONEAL L. Primary Care Physician Israel ONAEL L. Attending Clinician MD ISRAEL L. Attending Clinician Unavailable MD ISRAEL L. Admitting Clinician Unavailable Payers Payer Name Policy Type Policy Number Effective Date Expiration Date S ource Problems This patient has no known problems. Allergies, Adverse Reactions, Alerts This patient has no known allergies or adverse reactions. Social History Social Habit Start Date Stop Date Quantity Comments Source Sex Assigned At [birth year] [facility] 00:00:00 00:00:00 Smoking Status Start Date Stop Date Source Unknown if ever smoked [facility] Medications This patient has no known medications. Procedures Procedure Date / Time Performed Performing Clinician Sour e COVID-19 QUALITATIVE 2020-05-20 19:30:00 David Wood [facility] RT-PCR Plan of Care Planned Activity Planned Date Details Comments Source Future Scheduled Test 65+ PNEUMOCOCCAL Me [facility] VACCINE (1 of 2 - PPSV23) [code = 65+ PNEUMOCOCCAL VACCINE (1 of 2 - PPSV23)] Future Scheduled Test DIABETES: RETINAL EYE [facility] EXAM [code = DIABETES: RETINAL EYE EXAM] Future Scheduled Test DIABETIC FOOT EXAM [facility] [code = DIABETIC FOOT EXAM] Future Scheduled Test URINE MICROALBUMIN [facility] [code = URINE MICROALBUMIN] Future Scheduled Test COVID-19 VACCINE (1) [facility] [code = COVID-19 VACCINE (1)] Future Scheduled Test Hepatitis C screening [facility] (procedure) [code = 790650749] Future Scheduled Test COLONOSCOPY SCREENING [facility] [code = COLONOSCOPY SCREENING] Future Scheduled Test SHINGLES VACCINES (#1) [facility] [code = SHINGLES VACCINES (#1)] Future Scheduled Test INFLUENZA VACCINE [code [facility] = INFLUENZA VACCINE] Encounters Start End Encounter Admission Attending Care Care Encounter Source Date/Time Date/Time Type Type Clinicians Facility Department ID 2020-05-20 2020-05-20 Fabián Bazziblossom [id number] [facility] 13:19:54 13:34:[id number] 3.430.2.7 Hospit a .[id number] l .8 2020-05-20 2020-05-20 [facility] [place] [facility] [id number] 00:00:00 00:00:[address] 2020-05-20 2020-05-20 Travel 1.2.840.1 [id number] Methodi 00:00:00 00:00:[id number] 3.430.2.7 0.2.7.3.698 Ho spita .[id number] 084.8 l .8 2020-05-11 2020-05-11 Lyndsey Wood 1.2.840.1 [id number] [facility] 00:00:00 00:00:00 Only David L. [id number] 3.430.2.7 Hospit a .[id number] l .8 Results Test Description Test Time Test Comments Results Result Comments Source COVID-19 qualitative PCR 2020-05-21 01:17:25 Test Item Value Reference Range Interpretation Comme nts Interpretation (test code = Positive results are [id number]) indicative of active infection with 2019-nCoV but do not rule out bacterial infection or coinfection with other viruses. The agent detected may not be the definite cause of disease. COVID-19 qualitative RT-PCR Detected Not-Detected A result (test code = 12137-8) COVID-19 qualitative RT-PCR See link below for PDF Case Number: (test code = 7070) Lab Report [id number] Lab Interpretation (test Abnormal code = 36994-6) [facility] (COVID-19) RNA [Presence] in Respiratory specimen by THOR with probe [id number] 19:17:06 Test Item Value Reference Range Interpretation Comments SARS-CoV-2 (COVID-19) RNA [Presence] Detected Not-Detected in Respiratory specimen by THOR with probe detection (test code = 66814-8)
[2021-01-01 06:31] LABS: Absolute Lymphocytes (CBC) 2.4 K/uL (0.7-4.9); Basophils % 0.4 % (0-1.3); Hematocrit 41.2 % (39.6-49.0); Lymphocytes % 38.8 % (15.3-44.8); MPV 9.6 fL (7.6-11.3); RBC Red Blood Cell Count 4.27 M/uL (4.33-5.43)
[2021-01-01 06:33] LABS: ALT/SGPT 20 U/L (12-78); AST/SGOT 16 U/L (15-37); Albumin 3.2 g/dL (3.4-5.0); Alkaline Phosphatase 65 U/L (45-117); BUN Blood Urea Nitrogen 32 mg/dL (7-18); Bicarbonate 24 mmol/L (21-32); Bilirubin Direct < 0.1 mg/dL (0-0.2); Bilirubin Total 0.3 mg/dL (0.2-1.0); Glucose Level 92 mg/dL (74-106); Magnesium 2.1 mg/dL (1.8-2.4); NT PRO-BNP 130 pg/mL (<450); Potassium 3.8 mmol/L (3.5-5.1); Protein, Total 7.8 g/dL (6.4-8.2); Sodium Level 143 mmol/L (136-145); Troponin (Emerg Dept Use Only) < 0.02 ng/mL (0.0-0.045)
[2021-01-01 06:58] LABS: Protime INR 1.07
[2021-01-01] MEDS ORDERED: MORPHINE 4 MG/ML SYR ONE (07:53)
[2021-01-01] MEDS ORDERED: ONDANSETRON 4 MG/2 ML VIAL ONE ×2 (07:53→11:37)
--- NOTE | 2021-01-01 08:57 | RAD REPORT ---
EXAM DESCRIPTION: Abe Single View01/01/2021 8:14 am CLINICAL HISTORY: Chest pain COMPARISON: April 2020 FINDINGS: The lungs appear clear of acute infiltrate. The heart is normal size IMPRESSION: No acute abnormalities displayed
--- NOTE | 2021-01-01 10:05 | ER ---
Nurse's Notes [facility] Name: Tiffanie Alvarez Age: 75 yrs Sex: Male : 1945 Arrival Date: 01/01/2021 Time: 05:00 Bed 17 Private MD: Diagnosis: Chest pain, unspecified Presentation: 01/01 05:10 Chief complaint: Patient states: he started having chest pain this morning pain was bb 910 he took aspirin 324 mg and now his pain is gone he had an IA a couple of years ago. Coronavirus screen: At this time, the client does not indicate any symptoms associated with coronavirus-19. Ebola Screen: No symptoms or risks identified at this time. Initial Sepsis Screen: Does the patient meet any 2 criteria? No. Patient's initial sepsis screen is negative. Does the patient have a suspected source of infection? No. Patient's initial sepsis screen is negative. Risk Assessment: Do you want to hurt yourself or someone else? Patient reports no desire to harm self or others. Onset of symptoms was January 01, 2021. 05:10 Method Of Arrival: Wheelchair bb 05:10 Acuity: ANDREEA 2 bb Triage Assessment: 08:00 General: Appears in no apparent distress. Pain: Denies pain. kh1 Historical: - Allergies: 05:37 No Known Allergies; bb - PMHx: 05:37 BLINDNESS; CVA; Diabetes - NIDDM; Hypertension; hypotension; Hypothyroidism; Irregular bb heart rate; lung fibrosis; Myocardial infarction; - Immunization history:: Adult Immunizations up to date, Client reports having NOT received the Covid vaccine. - Social history:: Smoking status: Patient denies any tobacco usage or history of. Patient/guardian denies using alcohol, street drugs. Assessment: 05:10 General: Appears in no apparent distress. comfortable, Behavior is calm, cooperative, jb4 appropriate for age. Pain: Complains of pain in chest Pain does not radiate. Pain currently is 0 out of 10 on a pain scale. at worst was 8 out of 10 on a pain scale. Quality of pain is described as pressure. Neuro: Level of Consciousness is awake, alert, obeys commands, Oriented to person, place, time, situation. Cardiovascular: Patient's skin is warm and dry. Respiratory: Airway is patent Respiratory effort is even, unlabored, Respiratory pattern is regular, symmetrical. GI: No signs and/or symptoms were reported involving the gastrointestinal system. : No signs and/or symptoms were reported regarding the genitourinary system. EENT: No signs and/or symptoms were reported regarding the EENT system. Derm: Skin is intact, Skin is pink, warm \T\ dry. Musculoskeletal: Circulation, motion, and sensation intact. Range of motion:. 08:00 Reassessment: Patient appears in no apparent distress at this time. No changes from 1 previously documented assessment. Patient and/or family updated on plan of care and expected duration. Pain level reassessed. Patient is alert, oriented x 3, equal unlabored respirations, skin warm/dry/pink. 09:00 Reassessment: Patient appears in no apparent distress at this time. No changes from 1 previously documented assessment. Patient and/or family updated on plan of care and expected duration. Pain level reassessed. Patient is alert, oriented x 3, equal unlabored respirations, skin warm/dry/pink. 11:27 Reassessment: Patient appears in no apparent distress at this time. No changes from 1 previously documented assessment. Patient and/or family updated on plan of care and expected duration. Pain level reassessed. 13:34 Reassessment: Patient and/or family updated on plan of care and expected duration. Pain kh1 level reassessed. Patient states symptoms have not improved. pt vomited multiple times medicated as ordered. at bedside giving pt home mds. instructed not to give pt anymore meds . 15:00 Reassessment: Patient appears in no apparent distress at this time. No changes from 1 previously documented assessment. Patient and/or family updated on plan of care and expected duration. Pain level reassessed. Patient is alert, oriented x 3, equal unlabored respirations, skin warm/dry/pink. 16:00 Reassessment: Patient appears in no apparent distress at this time. No changes from 1 previously documented assessment. Patient and/or family updated on plan of care and expected duration. Pain level reassessed. Patient is alert, oriented x 3, equal unlabored respirations, skin warm/dry/pink. Vital Signs: 05:10 BP 168 / 97; Pulse 55; Resp 18 S; Temp 97.9(O); Pulse Ox 95% on R/A; Weight 77.11 kg bb (R); Height 5 ft. 10 in. (177.80 cm) (R); Pain 0/10; 06:00 BP 175 / 90; Pulse 52; Resp 16; Pulse Ox 96% on R/A; jb4 08:00 BP 136 / 82; Pulse 53; Resp 18; Temp 98.3; Pulse Ox 93% ; kh1 09:00 BP 150 / 82; Pulse 49; Resp 8; Temp 97.9(TE); Pulse Ox 94% on R/A; kh1 10:00 BP 155 / 95; Pulse 49; Resp 11; Pulse Ox 95% ; kh1 12:00 BP 153 / 79; Pulse 92; Resp 14; Temp 97.5(TE); Pulse Ox 92% on R/A; kh1 05:10 Body Mass Index 24.39 (77.11 kg, 177.80 cm) ED Course: 05:00 Patient arrived in ED. bp1 05:10 Arm band placed on Patient placed in an exam room, on a stretcher, on vibratory pile driver, bb on pulse oximetry. EKG completed in triage. Results shown to MD. 05:20 Blaise Reddy MD is Attending Physician. 7 05:27 Mitch Velazquez, ZOHAIB is Primary Nurse. jb4 05:37 Triage completed. bb 07:18 Attending Physician role handed off by Blaise Reddy MD jomar 07:18 Tuan Navarro MD is Attending Physician. jomar 07:30 Saroj Reis NP is PHCP. pm1 08:14 XRAY Chest (1 view) In Process Unspecified. EDMS 10:04 Dorian Verde MD is Hospitalizing Provider. pm1 Administered Medications: 07:55 Drug: morphine 4 mg Route: IVP; Site: right forearm; jb4 07:55 Drug: Zofran (Ondansetron) 4 mg Route: IVP; Site: right forearm; jb4 11:26 Drug: Zofran (Ondansetron) 4 mg Route: IVP; Site: right forearm; kh1 11:26 Drug: morphine 2 mg Route: IVP; Site: right forearm; kh1 01/02 07:25 Not Given (Other Intervention Used): colchicine 0.6 mg PO once iw Outcome: 01/01 10:04 Decision to Hospitalize by Provider. pm1 01/02 12:43 Patient left the ED. iw Signatures: Dispatcher [employer] EDMS Tuan Navarro MD MD cha Ballard, Brenda RN RN Angie Joel RN RN iw Saroj Reis, DIRECTOR OF ASSISTED LIVING DIRECTOR OF ASSISTED LIVING pm1 Mitch Velazquez RN RN jb4 Kimberlee Stanton Maurice, MD MD 7 Otilia Medley formerly [facility] Corrections: (The following items were deleted from the chart) 01/01 08:18 08:03 CORONAVIRUS+ drawn and sent. jb4 EDMT
--- NOTE | 2021-01-01 10:05 | EDPHYS ---
Physician Documentation [facility] Name: Tiffanie Alvarez Age: 75 yrs Sex: Male : 1945 Arrival Date: 01/01/2021 Time: 05:00 Bed 17 Private MD: FIONA Physician Tuan Navarro HPI: 01/01 05:47 This 75 yrs old Male presents to ER via Wheelchair with complaints of Chest mh7 Pain > 30 y/o. 05:47 The patient or guardian reports chest pain that is located primarily in the anterior mh7 chest wall, left. Onset: just prior to arrival, this morning. The pain does not radiate. 05:47 Associated signs and symptoms: Pertinent positives: shortness of breath, Pertinent mh7 negatives: abdominal pain, cough, diaphoresis, dizziness, headache, lower extremity pain, lower extremity swelling, lightheadedness, nausea, near syncope, palpitations, recent travel, syncope, vomiting. The chest pain is described as a pressure. Duration: The patient or guardian reports multiple episodes, that are intermittent, that wax and wane. Modifying factors: The symptoms are alleviated by ASA, 81mg X4. the symptoms are aggravated by nothing. Severity of pain: At its worst the pain was moderate today, in the emergency department the pain has resolved and did so just prior to arrival. The patient has experienced a previous episode, last year. Historical: - Allergies: 05:37 No Known Allergies; bb - PMHx: 05:37 BLINDNESS; CVA; Diabetes - NIDDM; Hypertension; hypotension; Hypothyroidism; Irregular bb heart rate; lung fibrosis; Myocardial infarction; - Immunization history:: Adult Immunizations up to date, Client reports having NOT received the Covid vaccine. - Social history:: Smoking status: Patient denies any tobacco usage or history of. Patient/guardian denies using alcohol, street drugs. ROS: 05:47 Constitutional: Negative for fever, chills, and weight loss, Eyes: Negative for injury, mh7 pain, redness, and discharge, ENT: Negative for injury, pain, and discharge, Neck: Negative for injury, pain, and swelling, Abdomen/GI: Negative for abdominal pain, nausea, vomiting, diarrhea, and constipation, Back: Negative for injury and pain, : Negative for injury, bleeding, discharge, and swelling, MS/Extremity: Negative for injury and deformity, Skin: Negative for injury, rash, and discoloration, Neuro: Negative for headache, weakness, numbness, tingling, and seizure, Psych: Negative for depression, anxiety, suicide ideation, homicidal ideation, and hallucinations, Allergy/Immunology: Negative for hives, rash, and allergies, Endocrine: Negative for neck swelling, polydipsia, polyuria, polyphagia, and marked weight changes, Hematologic/Lymphatic: Negative for swollen nodes, abnormal bleeding, and unusual bruising. Exam: 05:47 Constitutional: This is a well developed, well nourished patient who is awake, alert, mh7 and in no acute distress. Head/Face: Normocephalic, atraumatic. Eyes: Pupils equal round and reactive to light, extra-ocular motions intact. Lids and lashes normal. Conjunctiva and sclera are non-icteric and not injected. Cornea within normal limits. Periorbital areas with no swelling, redness, or edema. Neck: Trachea midline, no thyromegaly or masses palpated, and no cervical lymphadenopathy. Supple, full range of motion without nuchal rigidity, or vertebral point tenderness. No Meningismus. Chest/axilla: Normal chest wall appearance and motion. Nontender with no deformity. No lesions are appreciated. Cardiovascular: Regular rate and rhythm with a normal S1 and S2. No gallops, murmurs, or rubs. Normal PMI, no JVD. No pulse deficits. Respiratory: Lungs have equal breath sounds bilaterally, clear to auscultation and percussion. No rales, rhonchi or wheezes noted. No increased work of breathing, no retractions or nasal flaring. Abdomen/GI: Soft, non-tender, with normal bowel sounds. No distension or tympany. No guarding or rebound. No evidence of tenderness throughout. Back: No spinal tenderness. No costovertebral tenderness. Full range of motion. Skin: Warm, dry with normal turgor. Normal color with no rashes, no lesions, and no evidence of cellulitis. MS/ Extremity: Pulses equal, no cyanosis. Neurovascular intact. Full, normal range of motion. Neuro: Awake and alert, GCS 15, oriented to person, place, time, and situation. Cranial nerves II-XII grossly intact. Motor strength 5/5 in all extremities. Sensory grossly intact. Cerebellar exam normal. Normal gait. Psych: Awake, alert, with orientation to person, place and time. Behavior, mood, and affect are within normal limits. Vital Signs: 05:10 BP 168 / 97; Pulse 55; Resp 18 S; Temp 97.9(O); Pulse Ox 95% on R/A; Weight 77.11 kg bb (R); Height 5 ft. 10 in. (177.80 cm) (R); Pain 0/10; 06:00 BP 175 / 90; Pulse 52; Resp 16; Pulse Ox 96% on R/A; jb4 08:00 BP 136 / 82; Pulse 53; Resp 18; Temp 98.3; Pulse Ox 93% ; kh1 09:00 BP 150 / 82; Pulse 49; Resp 8; Temp 97.9(TE); Pulse Ox 94% on R/A; kh1 10:00 BP 155 / 95; Pulse 49; Resp 11; Pulse Ox 95% ; kh1 12:00 BP 153 / 79; Pulse 92; Resp 14; Temp 97.5(TE); Pulse Ox 92% on R/A; kh1 05:10 Body Mass Index 24.39 (77.11 kg, 177.80 cm) bb MDM: 07:20 Patient medically screened. [facility] 08:56 Counseling: I had a detailed discussion with the patient and/or guardian regarding: the pm1 historical points, exam findings, and any diagnostic results supporting the discharge/admit diagnosis, lab results, radiology results, the need for further work-up and treatment in the hospital, Patient's chest pain markedly improved with morphine given. 08:57 Refusal of service: The patient/guardian displays adequate decision making capability pm1 and despite a detailed discussion of alternatives, benefits, risks, and consequences refuses: Admission to the hospital for further work-up and treatment, wants to discuss with the patient further prior to patient signing out AMA. 10:03 ED course: Decided that he will now stay in the hospital versus going AGAINST MEDICAL pm1 ADVICE. 10:04 Data reviewed: vital signs. pm1 10:13 Physician consultation: Dorian Verde MD was called at 10:13, regarding admission, pm1 patient's condition, Would like consultation with Dr. Child prior to disposition. 10:36 Physician consultation: Dorian Verde MD would like medications started, colchicine 0.6 pm1 now and then once daily, in the emergency department to see patient at 10:36. 01/01 05:27 Order name: Basic Metabolic Panel jb4 01/01 05:27 Order name: CBC with Diff jb4 01/01 05:27 Order name: LFT's; Complete Time: 06:47 jb4 01/01 05:27 Order name: Magnesium; Complete Time: 06:47 jb4 01/01 05:27 Order name: NT PRO-BNP; Complete Time: 06:47 jb4 01/01 05:27 Order name: PT-INR; Complete Time: 07:03 jb4 01/01 05:27 Order name: Troponin (emerg Dept Use Only); Complete Time: 06:47 jb4 01/01 05:28 Order name: Basic Metabolic Panel; Complete Time: 06:47 EDMS 01/01 05:28 Order name: CBC with Automated Diff; Complete Time: 06:47 EDMS 01/01 09:15 Order name: SARS-COV-2 RT PCR; Complete Time: 09:29 EDMS 01/01 12:19 Order name: Glucose, Ancillary Testing; Complete Time: 17:27 EDMS 01/01 12:25 Order name: D-Dimer; Complete Time: 17:27 EDMS 01/01 12:31 Order name: Sedimentation Rate, Westergren; Complete Time: 17:27 EDMS 01/01 05:27 Order name: XRAY Chest (1 view); Complete Time: 08:59 jb4 01/01 05:27 Order name: EKG; Complete Time: 05:28 jb4 01/01 10:40 Order name: CONS Physician Consult EDMS 01/01 12:33 Order name: C-Reactive Protein; Complete Time: 17:27 EDMS 01/01 12:35 Order name: Troponin I; Complete Time: 17:27 EDMS 01/01 17:16 Order name: Troponin I; Complete Time: 17:27 EDMS 01/01 20:26 Order name: Glucose, Ancillary Testing EDMS 01/01 20:53 Order name: Glucose, Ancillary Testing EDMS 01/02 05:00 Order name: CBC with Automated Diff EDMS 01/02 05:07 Order name: Basic Metabolic Panel EDMS 01/02 08:32 Order name: CT EDMS 01/01 05:27 Order name: Cardiac monitoring; Complete Time: 05:28 4 01/01 05:27 Order name: EKG - Nurse/Tech; Complete Time: 05:28 jb4 01/01 05:27 Order name: IV Saline Lock; Complete Time: 06:12 4 01/01 05:27 Order name: Labs collected and sent; Complete Time: 06:12 jb4 01/01 05:27 Order name: O2 Per Protocol; Complete Time: 05:28 4 01/01 05:27 Order name: O2 Sat Monitoring; Complete Time: 05:28 jb4 Administered Medications: 07:55 Drug: morphine 4 mg Route: IVP; Site: right forearm; jb4 07:55 Drug: Zofran (Ondansetron) 4 mg Route: IVP; Site: right forearm; jb4 11:26 Drug: Zofran (Ondansetron) 4 mg Route: IVP; Site: right forearm; kh1 11:26 Drug: morphine 2 mg Route: IVP; Site: right forearm; 1 01/02 07:25 Not Given (Other Intervention Used): colchicine 0.6 mg PO once iw Disposition Summary: 01/01/21 10:04 Hospitalization Ordered Hospitalization Status: Observation pm1 Provider: Dorian Verde pm1 Condition: Stable pm1 Problem: new pm1 Symptoms: have improved pm1 Bed/Room Type: Standard [facility]1 [facility] 16[facility]53[facility] Room Assignment: ERHOLD-(01/01/21 16:53) iw Diagnosis - Chest pain, unspecified pm1 Forms: - Medication Reconciliation Form pm1 - SBAR form pm1 Addendum: 01/03/2021 15:12 Co-signature as Attending Physician, Tuan Navarro MD I agree with the assessment and c raaujo plan of care. Signatures: Dispatcher [employer] [facility] Tuan Navarro MD MD cha Ballard, Brenda RN Angie Arceo RN RN iw Saroj Reis NP [facility] pm1 Mitch Velazquez RN RN jb4 Gerardo Grissom RN RN ja1 Blaise Reddy MD MD Otilia Friend [facility] Corrections: (The following items were deleted from the chart) 01/01 08:18 07:05 CORONAVIRUS+MR.LAB.BRZ ordered. EDMS EDMS 14:19 10:04 Telemetry/MedSurg (observation) pm1 iw 14:19 10:04 pm1 iw 14:57 14:19 [facility] i[facility] ja1 14:57 14:19 ERHOLD- iw ja1 16:53 14:57 Telemetry/MedSurg (observation) ja1 iw 16:53 14:57 216 ja1 iw
[2021-01-01] MEDS ORDERED: GLUCAGON 1 MG/VIAL IM PRN (11:02)
[2021-01-01] MEDS ORDERED: D50W 25 GM/50 ML SYRINGE IV PRN (11:02)
--- NOTE | 2021-01-01 11:23 | P.HP ---
Certification for Inpatient Patient admitted to: Observation With expected LOS: <2 Midnights Practitioner: I am a practitioner with admitting privileges, knowledge of patient current condition, hospital course, and medical plan of care. Services: Services provided to patient in accordance with Admission requirements found in Title 42 Section 412.3 of the Code of Federal Regulations Patient History Date of Service: 01/01/21 Reason for admission: CHEST PAIN History of Present Illness: MR. MARIN WAKES UP WITH CHEST PAIN L SIDE THAT IS CONSTANT AND PELURITIC WHEN I MADE HIM TAKE A DEEP BREATH. THERE IS NO RADIATION OF THE PAIN. HE HAS DM AND KNOWN CAD WITH STENT IN THE PAST. HE IS TOTALLY BLIND FOR A LONG DURATION FROM GLAUCOMA. Allergies No Known Allergies Allergy (Verified 11/25/15 08:55) Home medications list reviewed: Yes Home Medications: Cholecalciferol (Vitamin D3) [Vitamin D3] 1 tab PO DAILY 04/10/20 Clopidogrel Bisulfate [Plavix*] 75 mg PO 0630 04/10/20 Dorzolamide HCl [Trusopt] 1 drop EACH EYE BID 04/10/20 Finasteride [Proscar*] 5 mg PO 1700 04/10/20 Glimepiride 2 mg PO 0800 04/10/20 L.acidoph,Paracasei, B.lactis [Probiotic] 1 cap PO 0630 04/10/20 Latanoprost/Pf [Latanoprost 0.005% Eye Drop] 1 drop EACH EYE BEDTIME 04/10/20 Levothyroxine Sodium [Levothyroxine] 25 mcg PO 0630 04/10/20 Losartan Potassium 50 mg PO BEDTIME 04/10/20 Rosuvastatin Calcium 40 mg PO BEDTIME 04/10/20 Mirabegron [Myrbetriq] 25 mg PO DAILY 90 Days #90 tab.er.24h 04/11/20 Tamsulosin [Flomax*] 0.4 mg PO DAILY 90 Days #90 cap 04/11/20 levoFLOXacin [Levaquin] 500 mg PO DAILY 10 Days #10 tab 04/11/20 - Past Medical/Surgical History Diabetic: Yes -: HTN -: DIABETES- NIDDM -: DIABETES WITH CAD, STENT AND PVD -: 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 STABLE. -: COVID PNEUMONIA RESOLVED. -: CATARACT SX TO RIGHT EYE- March -: Right 5th toe amputation - Family History Mother -: Hypertension, Diabetes - Social History Alcohol use: No CD- Drugs: No Caffeine use: No Review of Systems 10-point ROS is otherwise unremarkable Physical Examination - Physical Exam General: Alert, Oriented x3, Acute distress, Mild distress HEENT: Atraumatic, PERRLA, Mucous membr. moist/pink, EOMI, Sclerae nonicteric Neck: Supple, 2+ carotid pulse no bruit, No LAD, Without JVD or thyroid abnormality Respiratory: Clear to auscultation bilaterally, Normal air movement Cardiovascular: Regular rate/rhythm, Normal S1 S2 Gastrointestinal: Normal bowel sounds, No tenderness Musculoskeletal: No tenderness Integumentary: No rashes Neurological: Normal gait, Normal speech, Normal strength at 5/5 x4 extr, Normal tone, Normal affect Lymphatics: No axilla or inguinal lymphadenopathy - Studies Laboratory Data (last 24 hrs) 01/01/21 05:50: PT 12.3, INR 1.07 01/01/21 05:50: WBC 6.20, Hgb 13.8, Hct 41.2, Plt Count 135 L 01/01/21 05:50: Sodium 143, Potassium 3.8, BUN 32 H, Creatinine 1.31 H, Glucose 92, Magnesium 2.1, Total Bilirubin 0.3, AST 16, ALT 20, Alkaline Phosphatase 65 Assessment and Plan - Problems (Diagnosis) (1) Pleuritic chest pain Current Visit: Yes Status: Acute Plan: MORE LIKE PERICARDITIS THAN CAD RELATED PAIN CHECK D DIMER. RULE OUT PE ALSO. ECHO OUTPATIENT. HE ALREADY KNOWS DR. BETANCUR. (2) Diabetes Current Visit: No Status: Chronic Qualifiers: Diabetes mellitus type: type 2 - Advance Directives Does patient have a Living Will: No Does patient have a Durable POA for Healthcare: No
[2021-01-01] MEDS: INSULIN -REGULAR HUMAN 50 UNIT/0.5 ML ML SQ SCH ×3 (11:30→20:26)
[2021-01-01] MEDS ORDERED: MORPHINE 2 MG/ML SYR ONE (11:44)
[2021-01-01] MEDS: COLCHICINE 0.6 MG TAB PO SCH (12:00)
--- NOTE | 2021-01-01 15:11 | EKG ---
Test Date: 2021-01-01 Test Time: 05:13:21 Cost And Risk Analysis Manager: BROOKE MEASUREMENT RESULTS: Intervals: Rate: 54 MI: 280 QRSD: 100 QT: 424 QTc: 402 [place]: P: 27 MI: 280 QRS: 34 T: -6 INTERPRETIVE STATEMENTS: Sinus bradycardia with 1st degree AV block Otherwise normal ECG Compared to ECG 04/10/2020 01:19:17 Sinus rhythm no longer present Electronically Signed On 01-01-21 15:10:40 CDT by Chalo Child
--- NOTE | 2021-01-01 18:04 | CON ---
Date of Consultation: 01/01/2021 The patient was admitted to Dr. Verde's service with chest pain, on 01/01/2021. I saw the patient on 01/01/2021. History Of Present Illness: Mr. Alvarez is a 75-year-old male. He is known to me from previous cathet erization. In April 2019, he underwent a circumflex stent. He comes in with left lateral sharp st abbing chest pain that is persistent for hours without any nausea, vomiting, diaphoresis, PND, orthop bridgett, pedal edema, palpitation, or syncope. [place] has already been ruled out. He had an elevated D-dime r, elevated CRP. Creatinine was 1.31, glucose was 122. Chest x-ray was negative. He is pain free n ow. He denied nausea, vomiting, diaphoresis, PND, orthopnea, pedal edema, palpitations, or syncope. Denies any fever or chills. Allergies: NONE. Review of Systems: Negative. Social History: Negative. Family History: Negative. Medications: Crestor, Plavix, Proscar, Flomax, Levaquin, glimepiride, Synthroid, and losartan. Past Medical History: 1.CAD, status post circumflex stent in April 2019. 2.Blindness. 3.History of CVA. 4.Hypertension. 5.Diabetes. 6.Hypothyroidism. 7.Palpitations. 8.Pulmonary fibrosis. Physical Examination: General: He was pleasant, wants to go home symptom free. Vital Signs: Stable, afebrile. HEENT: Negative. Neck: Supple with no bruit. Chest: Clear. Cardiac: Revealed a regular rhythm and rate with an S4 gallops, but no murmurs or rubs. Abdomen: Benign. Extremities: Revealed no clubbing, cyanosis, or edema. Neurological: He was nonfocal. Skin: Dry and intact. Pulses were present distally bilaterally. Diagnostic Data: As stated earlier. Impression And Plan: 1.Atypical chest pain in a patient with history of coronary artery disease. Myocardial infarction h as ruled out. I suggested an outpatient echocardiogram and a Lexiscan. 2.Blindness. 3.History of cerebrovascular accident. 4.History of coronary artery disease, status post stent in April 2019. 5.Hypertension, well controlled. 6.Diabetes, well controlled. 7.Hypothyroidism. 8.Palpitation. 9.Pulmonary fibrosis, although the chest x-ray is negative for that now. He does have some mild kole al insufficiency and some mild elevation in D-dimer and CRP that are rather nonspecific. I am comfortable with Mr. Alvarez going home. He will come see me at 8:30 in the morning next week on Sunday. Continue present home medicine. EAMON/MONALISA Voice ID: [id number] Report ID: [id number]
[2021-01-01] MEDS ORDERED: COLCHICINE 0.6 MG TAB ONE (19:44)
[2021-01-02 00:59] VITALS: BMI 25.0
[2021-01-02 03:18] VITALS: TEMP 97.6
[2021-01-02 04:04] VITALS: BP 164/76
[2021-01-02 04:47] LABS: Absolute Lymphocytes (CBC) 1.7 K/uL (0.7-4.9); Basophils % 0.2 % (0-1.3); Hematocrit 41.7 % (39.6-49.0); Lymphocytes % 13.4 % (15.3-44.8); MPV 9.5 fL (7.6-11.3); RBC Red Blood Cell Count 4.31 M/uL (4.33-5.43)
[2021-01-02 05:07] LABS: Potassium 4.3 mmol/L (3.5-5.1)
[2021-01-02] MEDS: INSULIN -REGULAR HUMAN 50 UNIT/0.5 ML ML SQ SCH (07:30)
[2021-01-02] MEDS ORDERED: COLCHICINE 0.6 MG TAB ONE (07:50)
--- NOTE | 2021-01-02 08:32 | RAD REPORT ---
EXAM DESCRIPTION: CT - Chest For Pe Angio - 01/02/2021 8:23 am CLINICAL HISTORY: PAIN COMPARISON: Chest For Pe Angio dated 04/10/2020; Chest Single View dated 01/01/2021 FINDINGS: Chest Wall: No suspicious thyroid nodules or pathologic lymphadenopathy. Lungs: Mild consolidative airspace disease in the left lung base. Dependent atelectasis on the right side. Pleura: Small left pleural effusion. Mediastinum/love: No pathologic lymphadenopathy. Pulmonary arteries/Aorta: No filling defect identified. No aortic aneurysm. Heart: No significant pericardial effusion. Normal heart size. Upper abdomen: No acute abnormality. Bones: No acute abnormality. IMPRESSION: Negative for pulmonary embolism. Small left pleural effusion with underlying consolidati on that could represent pneumonia. Mild atelectasis noted as well.
[2021-01-02] MEDS: COLCHICINE 0.6 MG TAB PO SCH (08:46)
[2021-01-02] MEDS ORDERED: levoFLOXacin 500 MG TAB ONE (10:35)
[2021-01-02 10:50] VITALS: O2SAT 90
[2021-01-02] MEDS ORDERED: levoFLOXacin 500 MG TAB PO SCH (11:00)
--- NOTE | 2021-01-03 07:38 | P.DS ---
Admission Date: 01/01/21 Discharge Date: 01/03/21 Disposition: [place] [facility] CARE Discharge Condition: GOOD Reason for Admission: CHEST PAIN - Problems (1) Pleuritic chest pain Status: Acute (2) Diabetes Status: Chronic Qualifiers: Diabetes mellitus type: type 2 (3) Pneumonia Status: Acute Brief History of Present Illness: MR. MARIN WAKES UP WITH CHEST PAIN L SIDE THAT IS CONSTANT AND PELURITIC WHEN I MADE HIM TAKE A DEEP BREATH. THERE IS NO RADIATION OF THE PAIN. HE HAS DM AND KNOWN CAD WITH STENT IN THE PAST. HE IS TOTALLY BLIND FOR A LONG DURATION FROM GLAUCOMA. MR MARIANO ON CT CHEST SHOWS SMALL PNEUMONIA ON L SIDE WHERE HE HURTS. NOW CONFIRMS THAT HE HAD SOME NEW COUGH. I GAVE HIM LEVAQUIN FO R10 DAYS AND HE CAN BE DISCHARGED HE IS STABLE AND HAS MILD PNEUMONIA. FU IN OFFICE IN A WEEK. Vital Signs/Physical Exam: Temp Pulse Resp BP Pulse Ox 97.6 F 68 17 164/76 H 95 01/02/21 03:00 01/02/21 04:03 01/02/21 04:03 01/02/21 04:03 01/02/21 04:03 Laboratory Data at Discharge: WBC 12.90 K/uL (4.3-10.9) H D 01/02/21 03:37 Hgb 13.9 g/dL (13.6-17.9) 01/02/21 03:37 Hct 41.7 % (39.6-49.0) 01/02/21 03:37 Plt Count 130 K/uL (152-406) L 01/02/21 03:37 PT 12.3 SECONDS (9.5-12.5) 01/01/21 05:50 INR 1.07 01/01/21 05:50 Sodium 144 mmol/L (136-145) 01/02/21 03:37 Potassium 4.3 mmol/L (3.5-5.1) 01/02/21 03:37 BUN 31 mg/dL (7-18) H 01/02/21 03:37 Creatinine 1.09 mg/dL (0.55-1.3) 01/02/21 03:37 Glucose 117 mg/dL (74-106) H 01/02/21 03:37 Magnesium 2.1 mg/dL (1.8-2.4) 01/01/21 05:50 Total Bilirubin 0.3 mg/dL (0.2-1.0) 01/01/21 05:50 AST 16 U/L (15-37) 01/01/21 05:50 ALT 20 U/L (12-78) 01/01/21 05:50 Alkaline Phosphatase 65 U/L (45-117) 01/01/21 05:50 Troponin I < 0.02 ng/mL (0.0-0.045) 01/01/21 16:44 Home Medications: Cholecalciferol (Vitamin D3) [Vitamin D3] 1 tab PO DAILY 04/10/20 Clopidogrel Bisulfate [Plavix*] [place] [address]/10/20 Dorzolamide HCl [Trusopt] 1 drop EACH EYE BID 04/10/20 Finasteride [Proscar*] 5 mg PO 1700 04/10/20 Glimepiride 2 mg PO 0800 04/10/20 L.acidoph,Paracasei, B.lactis [Probiotic] [place] [address]/10/20 Latanoprost/Pf [Latanoprost 0.005% Eye Drop] 1 drop EACH EYE BEDTIME 04/10/20 Levothyroxine Sodium [Levothyroxine] 25 mcg PO 0630 04/10/20 Losartan Potassium 50 mg PO BEDTIME 04/10/20 Rosuvastatin Calcium 40 mg PO BEDTIME 04/10/20 Mirabegron [Myrbetriq] 25 mg PO DAILY 90 Days #90 tab.er.24h 04/11/20 Tamsulosin [Flomax*] 0.4 mg PO DAILY 90 Days #90 cap 04/11/20 levoFLOXacin [Levaquin] 500 mg PO DAILY 10 Days #10 tab 04/11/20 Colchicine 0.6 mg PO DAILY #30 capsule 01/01/21 New Medications: Colchicine 0.6 mg PO DAILY #30 capsule Physician Discharge Instructions: PROBLEM: Chest pain GOAL: Clear understanding of disease process INSTRUCTIONS: Ok to discharge home Follow up with Dr. Verde in 2 weeks Take Omeprazole OTC 20mg daily Take colchicine daily as prescribed Contact physician or return to ER for any complications or concerns Call [phone] for any questions regarding hospital stay Diet: Heart Healthy Activity: As tolerated E-script sent to [facility] in [place] [facility] Influenza Vaccine Indicated: Influenza Vaccine Given: Date Given: Pneumonia Vaccine Indicated: Pneumonia Vaccine Given: Date Given: Followup: Chalo Child MD [ACTIVE - CAN ADMIT] - 01/04/21 8:30 am Dorian Verde MD [ACTIVE - CAN ADMIT] - 1-2 Weeks
--- NOTE | 2021-01-03 17:02 | EKG ---
Test Date: 2021-01-01 Test Time: 07:25:29 Special Procedure Tech: MEASUREMENT RESULTS: Intervals: Rate: 53 IL: 296 QRSD: 92 QT: 446 QTc: 418 [place]: P: 43 IL: 296 QRS: 29 T: 58 INTERPRETIVE STATEMENTS: Sinus bradycardia with 1st degree AV block Otherwise normal ECG Compared to ECG 01/01/2021 05:13:21 No significant changes Electronically Signed On 01-03-21 16:57:19 CDT by Chalo Child
== END 2021-01-02 11:56 | disposition home or self-care (01) ==
LOC: ER 04:59 → ERHOLD 10:38
PROVIDERS: ADMIT Internal Medicine; ATTEND Internal Medicine
DX: J18.9 Pneumonia, unspecified organism (principal); E11.9 Type 2 diabetes mellitus without complications; I25.10 Atherosclerotic heart disease of native coronary artery without angina pectoris; I10 Essential (primary) hypertension; I73.9 Peripheral vascular disease, unspecified; H40.9 Unspecified glaucoma; H54.8 Legal blindness, as defined in USA; E03.9 Hypothyroidism, unspecified; R00.2 Palpitations; J84.10 Pulmonary fibrosis, unspecified; N28.9 Disorder of kidney and ureter, unspecified; Z86.16 Personal history of COVID-19; Z20.822 Contact with and (suspected) exposure to COVID-19; Z95.5 Presence of coronary angioplasty implant and graft; Z86.73 Personal history of transient ischemic attack (TIA), and cerebral infarction without residual deficits; Z79.02 Long term (current) use of antithrombotics/antiplatelets; Z82.49 Family history of ischemic heart disease and other diseases of the circulatory system; Z83.3 Family history of diabetes mellitus
CPT/HCPCS: 93005 ×3; 85025 ×2; 80048 ×2; 36415 ×2; 83735; 85610; 82947 ×4; 85379; 80076; 85652; 84484 ×3; 83880; 86140; 71275; 71045; 96375; 96374; 99284; U0003; J2270; J2405 ×2; G0378 ×3

== ENCOUNTER 2021-11-28 05:29 | Emergency (ER) | payer OTHER ==
[2021-11-28 05:58] LABS: Absolute Lymphocytes (CBC) 0.9 K/uL (0.7-4.9); Hematocrit 42.5 % (39.6-49.0); Lymphocytes % 7.7 % (15.3-44.8); MCV 94.7 fL (80-100); MPV 9.3 fL (7.6-11.3); RBC Red Blood Cell Count 4.49 M/uL (4.33-5.43)
[2021-11-28] MEDS ORDERED: ONDANSETRON 4 MG/2 ML VIAL ONE (06:10)
[2021-11-28] MEDS ORDERED: FAMOTIDINE 20 MG/2 ML VIAL IV ONE (06:10)
[2021-11-28 06:12] LABS: Albumin 3.3 g/dL (3.4-5.0); Bilirubin Total 0.6 mg/dL (0.2-1.0); Potassium 3.7 mmol/L (3.5-5.1); Protein, Total 7.8 g/dL (6.4-8.2)
--- NOTE | 2021-11-28 07:39 | RAD REPORT ---
EXAM DESCRIPTION: CT - Abdomen Pelvis W Contrast - 11/28/2021 6:58 am CLINICAL HISTORY: Abdominal pain/nausea vomiting COMPARISON: 2019 CT scan and October 2021 MRI TECHNIQUE: Computed axial tomography of the abdomen pelvis was obtained. 100 cc Isovue-300 was admin istered intravenously. Oral contrast was not requested which limits evaluation of bowel and appendix All CT scans are performed using dose optimization technique as appropriate and may include automated exposure control or mA/KV adjustment according to patient size. FINDINGS: 3.8 centimeter lesion is present within the hepatic segment VIII. It is vascular. The port al vein is patent. It is without significant change from the recent MRI 2.3 centimeter mass within the pancreatic neck unchanged. Pancreatic duct is normal caliber. Adrenals, kidneys and spleen are unremarkable There is no evidence of diverticulitis. Normal appendix. Mild enlargement of prostate gland. Small left pleural effusion. Left lower lobe opacities have diminished presumably the sequela of prio r pneumonia IMPRESSION: 2.3 centimeter pancreatic mass without significant change presumably neoplasm. 3.8 centimeter hepatic mass may represent a metastasis.
[2021-11-28 08:28] LABS: Urine Blood Negative (Negative); Urine Glucose Negative (Negative); Urine Protein 1+ (Negative); Urine pH 5.5 (5.0-7.0)
[2021-11-28] MEDS ORDERED: NA CHLORIDE 0.9% 500 ML ONE (08:41)
--- NOTE | 2021-11-28 10:19 | RAD REPORT ---
EXAM DESCRIPTION: Abe Single View11/28/2021 9:07 am CLINICAL HISTORY: Cough COMPARISON: CT chest January 02, 2021 FINDINGS: Left lower lobe opacities have partially resolved. Right lung appears clear. Heart is normal size IMPRESSION: Partial resolution of left lower lobe opacities presumably pneumonia this should be foll owed until it has cleared to help exclude a post obstructive process/underlying mass
[2021-11-28 11:09] VITALS: TEMP 98.8
[2021-11-28 11:11] VITALS: O2SAT 94
[2021-11-28 11:25] VITALS: BP 128/67
--- NOTE | 2021-11-30 09:22 | EDPHYS ---
Physician Documentation [facility] Name: Tiffanie Alvarez Age: 76 yrs Sex: Male : 1945 Arrival Date: 11/28/2021 Time: 05:33 Bed 6 Private MD: ED Physician Bobby Romero HPI: 11/28 19:24 This 76 yrs old Male presents to ER via EMS with complaints of Nausea/Vomiting. kdr 07:07 's last night, the patient has been increasingly weak. He is also been vomiting. He kdr vomited twice. His had offered to bring him several times during the evening however he declined. This morning when she tried to get him off the couch he was unable to get up and so she called EMS. Patient is without significant complaints at this time.. Onset: The symptoms/episode began/occurred last night. Severity of symptoms: At their worst the symptoms were mild moderate just prior to arrival. The patient has not experienced similar symptoms in the past. The patient has been recently seen by a physician: The patient is being evaluated for a mass on his liver by Dr. Verde. Historical: - Allergies: 05:36 No Known Allergies; aa9 - Home Meds: 05:42 finasteride 5 mg Oral tab 1 tab once daily [Active]; glimepiride 2 mg Oral tab 1 tab aa9 once daily [Active]; Myrbetriq 25 mg oral Tb24 1 tab once daily [Active]; levothyroxine 75 mcg oral tab 1 tab once daily [Active]; Flomax 0.4 mg Oral cap 1 cap once daily [Active]; atorvastatin 20 mg oral tab 1 tab q other day [Active]; Lactobacillus acidoph-pectin oral cap [Active]; latanoprost 0.005 % ophthalmic (eye) drop [Active]; brimonidine 0.1 % ophthalmic (eye) drop [Active]; Bengay Ultra Strength topical oint [Active]; Miralax 17 gram/dose Oral powd [Active]; - PMHx: 05:36 BLINDNESS; Myocardial infarction; Diabetes - NIDDM; Hypothyroidism; Irregular heart aa9 rate; CVA; Hypertension; - Immunization history:: Client reports having NOT received the Covid vaccine. Flu vaccine is not up to date. - Social history:: Smoking status: Patient denies any tobacco usage or history of. ROS: 07:07 Constitutional: Negative for fever, chills, and weight loss, Eyes: Negative for injury, kdr pain, redness, and discharge, ENT: Negative for injury, pain, and discharge, Neck: Negative for injury, pain, and swelling, Cardiovascular: Negative for chest pain, palpitations, and edema, Respiratory: Negative for shortness of breath, cough, wheezing, and pleuritic chest pain, Back: Negative for injury and pain, : Negative for injury, bleeding, discharge, and swelling, MS/Extremity: Negative for injury and deformity, Skin: Negative for injury, rash, and discoloration, Neuro: Negative for headache, weakness, numbness, tingling, and seizure activity. Psych: Negative for depression, anxiety, suicide ideation, homicidal ideation, and hallucinations, Allergy/Immunology: Negative for hives, rash, and allergies, Endocrine: Negative for neck swelling, polydipsia, polyuria, polyphagia, and marked weight changes, Hematologic/Lymphatic: Negative for swollen nodes, abnormal bleeding, and unusual bruising. 07:07 Abdomen/GI: Positive for abdominal pain, nausea and vomiting, Negative for abdominal distension, black/tarry stool, rectal pain, rectal bleeding, bowel incontinence. Exam: 07:07 Constitutional: This is a well developed, well nourished patient who is awake, alert, kdr and in no acute distress. Head/Face: Normocephalic, atraumatic. Eyes: Pupils equal round and reactive to light, extra-ocular motions intact. Lids and lashes normal. Conjunctiva and sclera are non-icteric and not injected. Cornea within normal limits. Periorbital areas with no swelling, redness, or edema. Neck: Trachea midline, no thyromegaly or masses palpated, and no cervical lymphadenopathy. Supple, full range of motion without nuchal rigidity, or vertebral point tenderness. No Meningismus. Chest/axilla: Normal chest wall appearance and motion. Nontender with no deformity. No lesions are appreciated. Cardiovascular: Regular rate and rhythm with a normal S1 and S2. No gallops, murmurs, or rubs. Normal PMI, no JVD. No pulse deficits. Respiratory: Lungs have equal breath sounds bilaterally, clear to auscultation and percussion. No rales, rhonchi or wheezes noted. No increased work of breathing, no retractions or nasal flaring. Abdomen/GI: Soft, non-tender, with normal bowel sounds. No distension or tympany. No guarding or rebound. No evidence of tenderness throughout. Back: No spinal tenderness. No costovertebral tenderness. Full range of motion. Skin: Warm, dry with normal turgor. Normal color with no rashes, no lesions, and no evidence of cellulitis. MS/ Extremity: Pulses equal, no cyanosis. Neurovascular intact. Full, normal range of motion. Neuro: Awake and alert, GCS 15, oriented to person, place, time, and situation. Cranial nerves II-XII grossly intact. Motor strength 5/5 in all extremities. Sensory grossly intact. Cerebellar exam normal. Normal gait. Psych: Awake, alert, with orientation to person, place and time. Behavior, mood, and affect are within normal limits. Vital Signs: 05:33 BP 152 / 82; Pulse 75; Resp 16 S; Temp 98.8; Pulse Ox 93% on R/A; Weight 81.19 kg (R); aa9 Height 5 ft. 10 in. (177.80 cm) (R); Pain 0/10; 07:20 BP 135 / 70; Pulse 69; Resp 15; Pulse Ox 94% on R/A; vg1 08:30 BP 135 / 76; Pulse 63; Pulse Ox 94% on R/A; ap3 09:30 BP 128 / 67; Pulse 60; Resp 15; Pulse Ox 94% on R/A; vg1 05:33 Body Mass Index 25.68 (81.19 kg, 177.80 cm) aa9 MDM: 07:29 Patient medically screened. rn 10:23 Differential Diagnosis COVID, viral syndrome, food poisoning, dehydration. Data rn reviewed: vital signs, nurses notes, lab test result(s), radiologic studies, CT scan, plain films. Counseling: I had a detailed discussion with the patient and/or guardian regarding: the historical points, exam findings, and any diagnostic results supporting the discharge/admit diagnosis, lab results, radiology results, the need for outpatient follow up, to return to the emergency department if symptoms worsen or persist or if there are any questions or concerns that arise at home. Response to treatment: the patient's symptoms have markedly improved after treatment, and as a result, I will discharge patient. Special discussion: I discussed with the patient/guardian in detail that at this point there is no indication for admission to the hospital. It is understood, however, that if the symptoms persist or worsen the patient needs to return immediately for re-evaluation. Based on the history and exam findings, there is no indication for further emergent testing or inpatient evaluation. I discussed with the patient/guardian the need to see the primary care provider for further evaluation of the symptoms. ED course: No further vomiting, feels better, requests to go home, no acute findings on workup. COVID neg. CXR shows clearing of previous infection. CT showed pancreatic and liver masses that patient is aware of and just had MRI performed, told pancreatic mass is old and not cancer by specialist per family member. 11/28 05:50 Order name: Comprehensive Metabolic Panel; Complete Time: 07:06 EDMS 11/28 05:50 Order name: Lipase; Complete Time: 07:06 EDMS 11/28 05:50 Order name: CBC with Automated Diff; Complete Time: 07:06 EDMS 11/28 06:02 Order name: CT Abd/Pelvis - IV Contrast Only; Complete Time: 07:42 kdr 11/28 06:02 Order name: COVID-19 SARS RT PCR (Document "Date of Onset" if Symptomatic); Complete kdr Time: 08:19 11/28 06:02 Order name: Flu; Complete Time: 08:06 kdr 11/28 08:15 Order name: XRAY Chest (1 view); Complete Time: 10:23 rn 11/28 08:28 Order name: Urine Dipstick-Ancillary; Complete Time: 08:29 EDMS 11/28 05:43 Order name: IV Saline Lock; Complete Time: 05:47 kdr 11/28 05:43 Order name: Labs collected and sent; Complete Time: 06:57 kdr 11/28 05:43 Order name: Urine Dipstick-Ancillary (obtain specimen); Complete Time: 08:25 kdr Administered Medications: 06:11 Drug: Pepcid (famotidine) 20 mg Route: IVP; Site: right wrist; aa9 07:18 Follow up: Response: No adverse reaction; Marked relief of symptoms vg1 06:11 Drug: Zofran (Ondansetron) 4 mg Route: IVP; Site: right wrist; aa9 07:18 Follow up: Response: No adverse reaction; Marked relief of symptoms vg1 08:35 Drug: NS 0.9% 500 ml Route: IV; Rate: bolus; Site: right wrist; ap3 09:41 Follow up: IV Status: Completed infusion; IV Intake: 500ml vg1 Disposition Summary: 11/28/21 10:26 Discharge Ordered Location: Home rn Problem: new rn Symptoms: have improved rn Condition: Stable rn Diagnosis - Vomiting rn - Dehydration rn Followup: rn - With: Private Physician - When: As needed - Reason: Recheck today's complaints, Re-evaluation by your physician Discharge Instructions: - Discharge Summary Sheet jmm - Dehydration, Adult rn - Vomiting, Adult rn Forms: - Medication Reconciliation Form rn - Thank You Letter rn - Antibiotic ornament maker hand - Prescription Opioid Use rn Prescriptions: - ondansetron 4 mg Oral tablet,disintegrating - take 1 tablet by ORAL route every 8 hours As needed; 15 tablet; Refills: 0, jmm Product Selection Permitted Signatures: Dispatcher [employer] EDMS Jose Currie MD MD kdr Nieto, Roman, MD MD rn Prokisch, Amanda, RN RN ap3 Ade Cook RN RN aa9 Oma Mccoy RN vg1 Corrections: (The following items were deleted from the chart) 06:02 05:53 CBC+H.LAB.BRZ ordered. EDFL EDMS 06:02 05:53 COMPREHENSIVE METABOLIC PANEL+C.LAB.BRZ ordered. EDFL EDMS 06:02 05:53 LIPASE+C.LAB.BRZ ordered. EDFL EDMS 10:25 10:23 ED course: No further vomiting, feels better, requests to go home, no acute rn findings on workup. COVID neg. CXR shows clearing of previous infection. CT showed pancreatic and liver masses that patient is aware of and just had MRI performed, told pancreatic mass is old and not cancer. . rn
--- NOTE | 2021-11-30 09:22 | ER ---
Nurse's Notes [facility] Name: Tiffanie Alvarez Age: 76 yrs Sex: Male : 1945 Arrival Date: 11/28/2021 Time: 05:33 Bed 6 Private MD: Diagnosis: Vomiting;Dehydration Presentation: 11/28 05:33 Chief complaint: EMS states: called out for general weakness, n/v. Chief complaint: aa9 Patient states: "I couldn't get up from the sofa because I didn't have any energy.". Coronavirus screen: Vaccine status: Patient reports being unvaccinated. Ebola Screen: No symptoms or risks identified at this time. Initial Sepsis Screen: Does the patient meet any 2 criteria? No. Patient's initial sepsis screen is negative. Does the patient have a suspected source of infection? No. Patient's initial sepsis screen is negative. Risk Assessment: Do you want to hurt yourself or someone else? Patient reports no desire to harm self or others. Onset of symptoms was November 27, 2021. 05:33 Method Of Arrival: EMS: [facility] aa9 05:40 Chief complaint: Spouse and/or significant other states: "He felt warm so I gave him 2 aa9 Tylenol, He felt weak last night and refused to come in, he was vomited twice ,then tried to get up from the bathroom and couldn't get up, I called EMS". Care prior to arrival: Medication(s) given: Tylenol, 650 mg. 05:40 Acuity: ANDREEA 3 aa9 Triage Assessment: 05:37 General: Appears in no apparent distress. comfortable, Behavior is calm, cooperative. aa9 Pain: Denies pain. Historical: - Allergies: 05:36 No Known Allergies; aa9 - Home Meds: 05:42 finasteride 5 mg Oral tab 1 tab once daily [Active]; glimepiride 2 mg Oral tab 1 tab aa9 once daily [Active]; Myrbetriq 25 mg oral Tb24 1 tab once daily [Active]; levothyroxine 75 mcg oral tab 1 tab once daily [Active]; Flomax 0.4 mg Oral cap 1 cap once daily [Active]; atorvastatin 20 mg oral tab 1 tab q other day [Active]; Lactobacillus acidoph-pectin oral cap [Active]; latanoprost 0.005 % ophthalmic (eye) drop [Active]; brimonidine 0.1 % ophthalmic (eye) drop [Active]; Bengay Ultra Strength topical oint [Active]; Miralax 17 gram/dose Oral powd [Active]; - PMHx: 05:36 BLINDNESS; Myocardial infarction; Diabetes - NIDDM; Hypothyroidism; Irregular heart aa9 rate; CVA; Hypertension; - Immunization history:: Client reports having NOT received the Covid vaccine. Flu vaccine is not up to date. - Social history:: Smoking status: Patient denies any tobacco usage or history of. Screenin:48 Abuse screen: Denies threats or abuse. Denies injuries from another. Nutritional aa9 screening: No deficits noted. Tuberculosis screening: No symptoms or risk factors identified. Fall Risk None identified. Assessment: 05:38 General: Appears in no apparent distress. comfortable, Behavior is calm, cooperative. aa9 Pain: Denies pain. 07:18 Reassessment: Patient appears in no apparent distress at this time. Patient and/or vg1 family updated on plan of care and expected duration. Pain level reassessed. Patient is alert, oriented x 3, equal unlabored respirations, skin warm/dry/pink. Patient states feeling better. 08:05 Reassessment: patient encouraged to give urine sample. patient given urinal, urine ap3 container and education for urine collection. patient and patients spouse verbalized understanding on education. 08:31 Reassessment: No changes from previously documented assessment. Patient and/or family ap3 updated on plan of care and expected duration. Pain level reassessed. Patient is alert, oriented x 3, equal unlabored respirations, skin warm/dry/pink. 09:41 Reassessment: Patient appears in no apparent distress at this time. No changes from vg1 previously documented assessment. Patient and/or family updated on plan of care and expected duration. Pain level reassessed. Patient is alert, oriented x 3, equal unlabored respirations, skin warm/dry/pink. Vital Signs: 05:33 BP 152 / 82; Pulse 75; Resp 16 S; Temp 98.8; Pulse Ox 93% on R/A; Weight 81.19 kg (R); aa9 Height 5 ft. 10 in. (177.80 cm) (R); Pain 0/10; 07:20 BP 135 / 70; Pulse 69; Resp 15; Pulse Ox 94% on R/A; vg1 08:30 BP 135 / 76; Pulse 63; Pulse Ox 94% on R/A; ap3 09:30 BP 128 / 67; Pulse 60; Resp 15; Pulse Ox 94% on R/A; vg1 05:33 Body Mass Index 25.68 (81.19 kg, 177.80 cm) aa9 ED Course: 05:33 Patient arrived in ED. aa9 05:34 Inserted saline lock: 18 gauge in right wrist, using aseptic technique. Blood collected.jb4 05:36 Jose Currie MD is Attending Physician. kdr 05:38 Arm band placed on. aa9 05:42 Triage completed. aa9 05:48 Patient has correct armband on for positive identification. Placed in gown. Bed in low aa9 position. Call light in reach. Adult w/ patient. 06:06 Lipase Sent. tw5 06:06 Comprehensive Metabolic Panel Sent. tw5 07:00 CT Abd/Pelvis - IV Contrast Only In Process Unspecified. EDMS 07:08 Oma Mccoy, RN is Primary Nurse. vg1 07:15 COVID-19 SARS RT PCR (Document "Date of Onset" if Symptomatic) Sent. tp1 07:16 Warm blanket given. tp1 07:29 Attending Physician role handed off by Jose Currie MD rn 07:29 Bobby Romero MD is Attending Physician. rn 09:02 xray at bedside. ap3 09:08 XRAY Chest (1 view) In Process Unspecified. EDMS 10:30 ED physician to see patient. ap3 10:30 No provider procedures requiring assistance completed. ap3 10:47 IV discontinued, intact, bleeding controlled, No redness/swelling at site. Pressure ap3 dressing applied. Administered Medications: 06:11 Drug: Pepcid (famotidine) 20 mg Route: IVP; Site: right wrist; aa9 07:18 Follow up: Response: No adverse reaction; Marked relief of symptoms vg1 06:11 Drug: Zofran (Ondansetron) 4 mg Route: IVP; Site: right wrist; aa9 07:18 Follow up: Response: No adverse reaction; Marked relief of symptoms vg1 08:35 Drug: NS 0.9% 500 ml Route: IV; Rate: bolus; Site: right wrist; ap3 09:41 Follow up: IV Status: Completed infusion; IV Intake: 500ml vg1 Medication: 10:30 VIS not applicable for this client. ap3 Intake: 09:41 IV: 500ml; Total: 500ml. vg1 Outcome: 10:26 Discharge ordered by . rn 10:46 Discharged to home via wheelchair, with family. ap3 10:46 Condition: good 10:46 Discharge instructions given to patient, family, Instructed on discharge instructions, follow up and referral plans. medication usage, Demonstrated understanding of instructions, follow-up care, medications, Prescriptions given X 1. 10:54 Patient left the ED. ap3 Signatures: Dispatcher [employer] EDMS Jose Currie MD MD kdr Nieto, Roman, MD MD rn Bryson, James RN RN jb4 Ruby Augustin RN RN ap3 Oma Mccoy RN RN vg1 Tana Quiroga tw5 Tana Duggan RN RN tp1 Ade Cook, RN RN aa9
== END 2021-11-28 10:54 | disposition home or self-care (01) ==
LOC: ER 05:29
DX: E86.0 Dehydration (principal); Z20.822 Contact with and (suspected) exposure to COVID-19; E11.9 Type 2 diabetes mellitus without complications; I10 Essential (primary) hypertension; E03.9 Hypothyroidism, unspecified; I25.2 Old myocardial infarction; Z86.73 Personal history of transient ischemic attack (TIA), and cerebral infarction without residual deficits
CPT/HCPCS: 85025; 36415; 81003; 83690; 80053; 87804 ×2; 74177; 71045; U0003; Q9967; J7040; J2405; J3490; 96361; 96374; 96375; 99284

== ENCOUNTER 2022-01-03 15:05 | Emergency (ER) | payer OTHER ==
--- OUTSIDE RECORDS SUMMARY | 2022-01-03 15:08 | XMS REPORT | Continuity of Care Document ---
:1945 Author Organization [facility] t Address [address] [place] [address] Care Team Providers Name Role Phone David Wood MD Primary Care Physician SARAH STOCK Attending Clinician Unavailable Sarah Stock Attending Clinician [address] [place] [address] Ct Room Attending Clinician Unavailable Marina Wells MA Attending Clinician Unavailable uLz Mccallum RN Attending Clinician Unavailable Yeyo Wells MD Attending Clinician YEYO WELLS Attending Clinician Unavailable Reshma Herrera Attending Clinician Unavailable David Wood MD Attending Clinician MD DAVID WOOD Attending Clinician Unavailable MD DAVID WOOD Admitting Clinician Unavailable Payers Payer Name Policy Type Policy Number Effective Date Expiration Date Promise yao [employer] MEDICARE [id number] 2021 00:00:00 Problems This patient has no known problems. Allergies, Adverse Reactions, Alerts Allergy Allergy Status Severity Reaction(s) Onset Inactive Treating Comm ents Source Name Type Date Date Clinician NO KNOWN Allergy Active [facility] Family History Family Member Diagnosis Comments Start Date Stop Date Source Natural father Stroke [facility] Natural mother Diabetes [facility] Social History Social Habit Start Date Stop Date Quantity Comments Source History SDOH [facility] Std Drinks [facility] History SDOH [facility] Alcohol Binge Medical Melinda [facility] History SDOH [facility] Alcohol Comment Medical C enter Alcohol intake 2021-12-01 2021-12-[address] [facility] es 00:00:00 00:00:00 non-drinker Medical [place] (finding) History SDOH 2021-12-01 2021-12-[address] [facility] Alcohol Frequency 00:00:00 00:00:00 [facility] Tobacco use and 2021-12-01 2021-12-[address] [facility] k[facility] exposure 00:00:00 00:00:00 [facility] Sex Assigned At [address] [facility] 00:00:00 00:00:00 [facility] Smoking Status Start Date Stop Date Source Tobacco smoking consumption unknown [facility] Never smoker [facility] Med ical [place] Medications Ordered Filled Start Stop Current Ordering Indication Dosage Frequency Signature Comments Components Source Medication Medication Date Date Medication? Clinician (SIG) Name Name glimepiride Yes glimepirid [facility] St (AMARYL) 1 12-01 e 2 mg [facility] MG tablet 11:06: tablet TK Med ical 00 1 T PO D Center WITH BREAKFAST. STOP PRANDIN brimonidine Yes [facility] (ALPHAGAN 12-01 [facility] P) 0.1 % 11:06: Medical Drop 00 [place] latanoprost Yes 1[drp] QD [address] (XALATAN) 12-01 nightly. [facility] 0.005 % 11:06: Medical ophthalmic 00 [place] solution Lactobacill Yes 1{tbl} Q.5D Take [address] us 12-01 tablet by Tammie acidoph-L.b 11:06: mouth 2 Med ical ulgar 00 (two) Center (FLORANEX) times 1 million daily. cell Tab per tablet glucosamine Yes 1{tbl} [id number] Take [address] -chondroiti - [id number] tablet by Tammie n 500-400 11:06: 3D mouth 3 Medic al mg tablet 00 (three) Center times daily. calcium Yes 1{tbl} QD Take [address] carbonate-v 8- tablet by Angie es itamin D3 11:06: mouth Medical (OSCAL) 250 00 daily. Center mg-3.125 mcg (125 unit) Tab per tablet clopidogreL Yes 75mg QD Take [address] (PLAVIX) 75 8-04 by mouth Luke s mg tablet 11:05: daily. Medica l 59 Center levothyroxi Yes 75ug Take [address] ne 8-04 mcg by Lukes (SYNTHROID, 11:05: mouth Medic al LEVOTHROID) 59 Every Center 75 MCG morning on tablet an empty stomach. finasteride Yes 5mg QD Take [address] (PROSCAR) 5 8-04 by mouth Luke s mg tablet 11:05: daily. Medica l 59 Center tamsulosin Yes .4mg QD Take 0.[address] (FLOMAX) 8-04 mg by [facility]ukes 0.4 mg Cap 11:05: mouth Medica l 24 hr 59 daily. [place] capsule mirabegron Yes QD Take by [facility] (Myrbetriq) 8- mouth [facility]ukes 25 mg Tb24 11:05: daily. Medic al ER tablet 59 Center atorvastati Yes 20mg QD Take [address] n (LIPITOR) 8-04 by mouth Luke s 20 MG 11:05: daily. Medical tablet 59 Center netarsudiL- Yes Apply to I St latanoprost 12-01 eye(s). [facility] 0.02-0.005 11:05: Medical % Drop 59 Center Vital Signs Vital Name Observation Time Observation Value Comments Source Systolic blood 2021-12-01 11:31:00 144 mm[Hg] [facility] pressure [facility] Diastolic blood 2021-12-01 11:31:00 77 mm[Hg] [facility] Heart rate 2021-12-01 11:31:00 55 /min [facility] Body temperature 2021-12-01 11:31:00 36.17 Ita [facility] Body height 2021-12-01 11:31:00 180.3 cm [facility] Body weight 2021-12-01 11:31:00 80.06 kg [facility] BMI 2021-12-01 11:31:00 24.62 kg/m2 [facility] Oxygen saturation in 2021-12-01 11:31:00 96 /min [facility] Arterial blood by Medical Ce nter Pulse oximetry Procedures Procedure Date / Time Performing Clinician Source Performed CT CHEST WITHOUT IV 2021-12-15 10:50:00 [facility] CERULOPLASMIN 2021-12-01 12:44:00 Ankishor [facility] ANTI-NUCLEAR ANTIBODY (GRACY) 2021-12-01 12:44:00 Anudcolin [facility] ACTIN (SMOOTH MUSCLE) 2021-12-01 12:44:00 Ankishor [facility] ANTIBODY, IGG [facility] MITOCHONDRIA M2 ANTIBODY 2021-12-01 12:44:00 Ankishor [facility] (IGG) [facility] ALPHA FETOPROTEIN (AFP), 2021-12-01 12:44:00 Ankishor [facility] TUMOR MARKER [facility] CARBOHYDRATE ANTIGEN 19-9 2021-12-01 12:44:00 [facility] (CA 19-9) [facility] CARCINOEMBRYONIC ANTIGEN 2021-12-01 12:44:00 Ankishor [facility] (CEA) [facility] GRACY TITER AND PATTERN 2021-12-01 12:44:00 Ankishor [facility] CBC W/PLT COUNT & AUTO 2021-12-01 12:44:00 Ankishor [facility] S [facility] DIFFERENTIAL [facility] COMPREHENSIVE METABOLIC 2021-12-01 12:44:00 Ankishor [facility] PANEL [facility] BILIRUBIN, DIRECT 2021-12-01 12:44:00 Ankishor [facility] CBC W/PLT COUNT & AUTO 2021-12-01 12:44:00 Ankishor [facility] S [facility] DIFFERENTIAL [facility] PROTHROMBIN TIME/INR 2021-12-01 12:44:00 Ankishor [facility] HEPATITIS A ANTIBODY, IGG 2021-12-01 12:44:00 AnuduSarah I [facility] HEPATITIS A ANTIBODY, IGM 2021-12-01 12:44:00 AnuduSarah [facility] HEPATITIS B SURFACE ANTIGEN 2021-12-01 12:44:00 [facility], [facility]IT[facility] SURFACE 2021-12-01 12:44:00 [facility] ANTIBODY [facility] HEPATITIS B CORE ANTIBODY, 2021-12-01 12:44:00 AnuduSarah C [facility] HEPATITIS C ANTIBODY 2021-12-01 12:44:00 Anudu, [facility] IRON, TIBC, % SAT. (WITHOUT 2021-12-01 12:44:00 Anudu, [facility] FERRITIN) [facility] FERRITIN 2021-12-01 12:44:00 Anudu, [facility] [id number]\, SERUM 2021-12-01 12:44:00 Anudu, [facility] COVID-19 QUALITATIVE RT-PCR 2020-05-20 19:30:00 David Wood [facility] Plan of Care Planned Activity Planned Date Details Comments Source Future Scheduled 2021-12-30 HEPATITIS B VACCINES Met [facility] Test 19:10:41 (1 of 3 - 3-dose series) [code = HEPATITIS B VACCINES (1 of 3 - 3-dose series)] Future Scheduled 2021-12-30 COVID-19 VACCINE (#1) [facility] Test 19:10:41 [code = COVID-19 VACCINE (#1)] Future Scheduled 2021-12-30 COLONOSCOPY SCREENING [facility] Test 19:10:41 [code = COLONOSCOPY SCREENING] Future Scheduled 2021-12-30 SHINGLES VACCINES (1 Met [facility] Test 19:10:41 of 2) [code = SHINGLES VACCINES (1 of 2)] Future Scheduled 2021-12-30 65[facility] Test 19:10:41 VACCINE (1 - PCV) [code = 65+ PNEUMOCOCCAL VACCINE (1 - PCV)] Future Scheduled 2021-12-30 INFLUENZA VACCINE [facility] Test 19:10:41 [code = INFLUENZA VACCINE] Future Scheduled 2021-12-29 INFLUENZA VACCINE (#1) [facility] Test 00:00[facility]00 [code = INFLUENZA Medical Ce nter VACCINE (#1)] Future Scheduled 2021-05-31 COVID-19 [facility]INE (1) [facility] 13:15:12 [code = COVID-19 VACCINE (1)] Future Scheduled 2021-05-31 65+ [facility]OCOCCAL [facility] Test 13:15:12 VACCINE (1 of 2 - PPSV23) [code = 65+ PNEUMOCOCCAL VACCINE (1 of 2 - PPSV23)] Future Scheduled 2021-05-31 Hepatitis C screening [facility] Test 13:15:12 (procedure) [code = 697686565] Future Scheduled 2021-05-31 COLONOSCOPY SCREENING [facility] Test 13:15:12 [code = COLONOSCOPY SCREENING] Future Scheduled 2021-05-31 SHINGLES VACCINES (#1) [facility] Test 13:15:12 [code = SHINGLES VACCINES (#1)] Future Scheduled 2021-05-31 INFLUENZA VACCINE Method [facility] Hospital Test 13:15:12 [code = INFLUENZA VACCINE] Future Scheduled 2021-04-[address] [facility] Test 00:00:00 (12+) [code = Medical Center DEPRESSION SCREENING (12+)] Future Scheduled 2021-04-30 FALLS RISK SCREENING [facility] Test 00:00:00 [code = FALLS RISK Medical C enter SCREENING] Future Scheduled 2021-04-30 Medicare IPPE (WELCOME [facility] Test 00:00:00 TO MEDICARE) [code = Medical Center Medicare IPPE (WELCOME TO MEDICARE)] Future Scheduled 2010 PNEUMOCOCCAL 65+ Y[facility] Test 00:00:00 (1 - PCV) [code = Medical Ce nter PNEUMOCOCCAL 65+ YRS (1 - PCV)] Future Scheduled 1995 SHINGLES VACCINES ([address] [facility] Test 00:00:00 of 2) [code = SHINGLES Medic al Center VACCINES (1 of 2)] Future Scheduled 1964-02-28 DTAP/TDAP/TD VACCINES [facility] Test 00:00:00 (1 - Tdap) [code = Medical C enter DTAP/TDAP/TD VACCINES (1 - Tdap)] Future Scheduled 1945 COVID-19 VACCINE (#1) [facility] Test 00:00:00 [code = COVID-[address] VACCINE (#1)] Future Scheduled 65+ [facility]OCOCCAL [facility] Test VACCINE (1 of 2 - PPSV23) [code = 65+ PNEUMOCOCCAL VACCINE (1 of 2 - PPSV23)] Future Scheduled DIABETES: RETINAL E[facility] EXAM [code = DIABETES: RETINAL EYE EXAM] Future Scheduled DIABETIC FOOT EX[facility] Test [code = DIABETIC FOOT EXAM] Future Scheduled URINE MICROALBUMIN [facility] Test [code = URINE MICROALBUMIN] Future Scheduled COVID-19 VACCINE (1) [facility] [code = COVID-19 VACCINE (1)] Future Scheduled [facility] (procedure) [code = 570666001] Future Scheduled [facility]CREENING [facility] [code = COLONOSCOPY SCREENING] Future Scheduled SHINGLES VACCINES (#1) [facility] Test [code = SHINGLES VACCINES (#1)] Future Scheduled INFLUENZA VACCINE [facility] Test [code = INFLUENZA VACCINE] Encounters Start End Encounter Admission Attending Care Care Encounter Source Date/Time Date/Time Type Type Clinicians Facility Department ID 2021-12-15 2021-12-15 [facility] [id number] SLE 10:34:57 23:59:00 [facility] 2021-12-15 2021-12-15 [facility] [id number] 10:34:57 23:59:00 Encounter 1, [facility] 2021-12-15 2021-12-15 [facility] [id number] 10:34:57 23:59:00 Encounter 1, [facility] 2021-12-09 2021-12-09 Abstract Priscilla [facility] [id number] 00:00:00 00:00:00 [facility] 2021-12-09 2021-12-09 Abstract Priscilla [facility] [id number] 00:00:00 00:00:00 [facility] 2021-12-06 2021-12-06 Telephone Alessio [facility] [id number] 00:00[facility]00 00:00:00 [facility] 2021-12-06 2021-12-06 Telephone Alessio [facility] [id number] 00:00:00 00:00:00 [facility] 2021-12-02 2021-12-02 Lenny Mccallum [facility] [id number] 00:[facility]00 00:00[facility] [facility] 2021-12-02 2021-12-02 Lenny Mccallum [facility] [id number] 00:00[facility]00 00:00:[address] [facility] 2021-12-01 2021-12-01 Office BRYNN Wells [facility] [id number] 11:00:00 12:00:00 Visit [facility] 2021-12-01 2021-12-01 Office Russell [facility] [id number] 11:00:00 12:00:00 Visit [facility] 2021-12-01 2021-12-01 Outpatient BRYNN WELLS, [facility] SLE [id number] SLEH 10:47:10 10:47:[address] [facility] 2021-11-16 2021-11-16 Lenny Herrera [facility] [id number] 00:00:00 00:00:00 [facility] 2021-11-16 2021-11-16 Lenny Herrera [facility] [id number] 00:00:00 00:00:00 [facility] 2020-05-20 2020-05-20 Fabián Wood, 1.2.840.1 [id number] Methodi 13:19:54 13:34:54 David Marshall [id number] 3.430.2.7 Hospit a .3.957595 l .8 2020-05-20 2020-05-20 Travel 1.2.840.1 [id number] Methodi 00:00:00 00:00:[id number] 3.430.2.7 0.2.7.3.698 Ho spita .3.801094 084.8 l .8 2020-05-11 2020-05-11 Lyndsey Wood, 1.2.840.1 [id number] Methodi 00:00:00 00:00:00 Only David Marshall [id number] 3.430.2.7 Hospit a .3.764591 l .8 Results Test Description Test Time Test Comments Results Result [facility] e Comments CT, CHEST, WITHOUT 2021-12-16 Referred by: IV CONTRAST 11:52:00 Magdy [id number] [facility] [id number] [facility] MEDICAL Reason for CENTERName: GARCÍA, Exam - Click IRINEO TOVAR : Yes and Enter 1945 Sex: Reason M Below->No FINAL REPORT EXAMINATION: CT, CHEST, WITHOUT IV CONTRAST INDICATION: Liver mass. History of hepatitis. TECHNIQUE:Chest was scanned utilizing a multidetector helical scanner from the lung apex through the level of the adrenal glands without administration of IV contrast. Absence of intravenous contrast decreases sensitivity for detection of lymphadenopathy and vascular pathology. Coronal and sagittal reformations were obtained. Routine protocol was performed. IV CONTRAST: None RADIATION DOSE:Total DLP: 160 mGy*cmEstimated effective dose: 160 x 0.014 mSvCTDIvol has been reviewed. It is below the limits set by the Radiation Protocol Committee (RPC). FINDINGS: LUNGS AND AIRWAYS: There is round atelectasis, scarring and bronchiectasis in the posterior and lateral basal segments of the left lower lobe. A 7 x 5 mm subpleural solid pulmonary nodule in the right lower lobe, posterior basal segment (series 2, image 94). A 2 mm solid pulmonary nodule in the right upper lobe, posterior segment (series 2, image 47). A 2 mm calcified pulmonary nodule in the right middle lobe. A 1 mm calcified pulmonary nodule in the posterior basal segment of the right lower lobe (image 106). No groundglass opacities. There is no interstitial lung disease. Trachea and main bronchi are unremarkable PLEURA: Small left pleural effusion. There is diffuse thickening of the visceral and parietal pleura surrounding the effusion. HEART AND MEDIASTINUM: The thyroid gland is normal. No mediastinal, hilar or axillary lymphadenopathy. The heart is normal in size. Mild lipomatous hypertrophy of the interatrial septum. There is no pericardial effusion. There is a proximal LCX coronary stent. The thoracic aorta and pulmonary arteries are unremarkable. ESOPHAGUS: Unremarkable. UPPER ABDOMEN: Hepatic steatosis without hepatomegaly. Nonvisualization of the known liver mass due to absence of intravenous contrast. BONES: The visualized bony thorax is within normal limits. SOFT TISSUES: Bilateral gynecomastia. IMPRESSION: 1. Chronic small volume left pleural effusion. 2. Round atelectasis, scarring and bronchiectasis in the posterior and lateral basal segments of the left lower lobe. 3. A 7 x 5 mm right lower lobe solid pulmonary nodule of indeterminate etiology. 4. Two calcified nodules in the right lung consistent with granulomas. RECOMMENDATION: Nonenhanced low-dose chest CT follow-up in three months to assure stability of the right lower lobe solid pulmonary nodule. Signed: Jorgito Palomo MDReport Verified Date/Time: 12/16/2021 11:52:37 Reading Location: [place] [employer] [place] [id number] Y TITER AND PATTERN 2021-12-05 13:41:49 Test Item Value Reference Range Interpretation Comme nts GRACY TITER (BEAKER) (test code = 1541) :160 GRACY PATTERN (BEAKER) (test code = 1781) Nucleolar ANTI-NUCLEAR ANTIBODY (GRACY)2021-12-05 13:41:38 Test Item Value Reference Range Interpretation Comments ANTI-NUCLEAR ANTIBODY (GRACY) (BEAKER) Positive Negative A (test code = 418) Test performed by IFA method.[id number] 17:07:28 Test Item Value Reference Range Interpretation Comments FERRITIN (BEAKER) (test code = 326.37 ng/mL 5.00-275.00 H 361) Wire Drawing Setter ID - PIAYA LCARCINOEMBRYONIC ANTIGEN (CEA)2021-12-01 16:20:58 Test Item Value Reference Range Interpretation Comments CARCINOEMBRYONIC ANTIGEN (BEAKER) 1.4 ng/mL 0.0-5.0 (test code = 685) Wire Drawing Setter ID - YASMIN MALPHA FETOPROTEIN (AFP), TUMOR [id number] 16:20:58 Test Item Value Reference Range Interpretation Comments ALPHA-FETOPROTEIN (BEAKER) (test 105.2 ng/mL <10.0 H code = 1094) Wire Drawing Setter ID - YASMIN MHEPATITIS A ANTIBODY, [id number] 16:20:58 Test Item Value Reference Range Interpretation Comments HEPATITIS A IGM ANTIBODY (BEAKER) Nonreactive Nonreactive (test code = 498) Wire Drawing Setter ID - YASMIN MHEPATITIS A ANTIBODY, [id number] 16:20:58 Test Item Value Reference Range Interpretation Comments HEPATITIS A IGG ANTIBODY (BEAKER) Nonreactive Nonreactive (test code = 2797) Wire Drawing Setter ID - YASMIN MHEPATITIS B CORE ANTIBODY, [id number] 16:18:45 Test Item Value Reference Range Interpretation Comments HEPATITIS B CORE TOTAL ANTIBODY Reactive Nonreactive A (BEAKER) (test code = 497) Wire Drawing Setter ID - YASMIN MHEPATITIS B SURFACE [id number] 16:12:55 Test Item Value Reference Range Interpretation Comments HEPATITIS B SURFACE ANTIBODY 21.9 mIU/mL <8.0 H (BEAKER) (test code = 647) Wire Drawing Setter ID - YASMIN MHEPATITIS C [id number] 16:12:55 Test Item Value Reference Range Interpretation Comments HEPATITIS C ANTIBODY (BEAKER) Nonreactive Nonreactive (test code = 367) Wire Drawing Setter ID - YASMIN MHEPATITIS B SURFACE [id number] 16:12:55 Test Item Value Reference Range Interpretation Comments HEPATITIS B SURFACE ANTIGEN (2) Nonreactive Nonreactive (BEAKER) (test code = 2585) Specimen is considered negative for HBsAg.IRON, TIBC, % SAT. (WITHOUT FERRITIN) 2021-12-01 15:37:28 Test Item Value Reference Range Interpretation Comments IRON (BEAKER) (test code = 547) 55.0 ug/dL 40.0-160.0 TOTAL IRON BINDING CAPACITY 233 ug/dL 250-450 L (BEAKER) (test code = 769) IRON % SATURATION (2) (BEAKER) 24 % 20-55 (test code = 2590) Wire Drawing Setter ID - YASMIN [id number] 15:37:05 Test Item Value Reference Range Interpretation Comments ALPHA-1 ANTITRYPSIN (BEAKER) 204.60 mg/dL 90.00-200.00 H (test code = 502) Wire Drawing Setter ID - YASMIN MBILIRUBIN, [id number] 15:32:23 Test Item Value Reference Range Interpretation Comments BILIRUBIN DIRECT (BEAKER) (test 0.2 mg/dL 0.1-0.5 code = 706) Wire Drawing Setter ID - YASMIN MCOMPREHENSIVE METABOLIC [id number] 15:32:22 Test Item Value Reference Range Interpretation Comments TOTAL PROTEIN 8.0 gm/dL 6.0-8.3 (BEAKER) (test code = 770) ALBUMIN (BEAKER) 3.8 g/dL 3.5-5.0 (test code = 1145) ALKALINE 70 U/L 40-150 PHOSPHATASE (BEAKER) (test code = 346) BILIRUBIN TOTAL 0.5 mg/dL 0.2-1.2 (BEAKER) (test code = 377) SODIUM (BEAKER) 141 meq/L 136-145 (test code = 381) POTASSIUM (BEAKER) 4.4 meq/L 3.5-5.1 (test code = 379) CHLORIDE (BEAKER) 107 meq/L 98-107 (test code = 382) CO2 (BEAKER) (test 27 meq/L 22-29 code = 355) BLOOD UREA 26 mg/dL 7-21 H NITROGEN (BEAKER) (test code = 354) CREATININE 1.13 mg/dL 0.57-1.25 (BEAKER) (test code = 358) GLUCOSE RANDOM 90 mg/dL 70-105 (BEAKER) (test code = 652) CALCIUM (BEAKER) 9.5 mg/dL 8.4-10.2 (test code = 697) AST (SGOT) 18 U/L 5-34 (BEAKER) (test code = 353) ALT (SGPT) 21 U/L 6-55 (BEAKER) (test code = 347) EGFR (BEAKER) 68 Interpretatio n of eGFR (test code = 1092) mL/min/1.[address] age Description sq m Result G1 Kathia l or high >=90 G2 Mildly decreased 60-89 G3a Mildl y to moderately 45-5 9 G3b Moderately to s everely 30-44 G4 Severl y decreased 15-29 G5 Kidney failure <15Reported eGF R is based on the CKD-EPI 2020 equation that d oes not use a race coefficientEsti mated GFR is not as accur ate as Creatinine Janet villaseñor in predicting glom erular filtration rate . Estimated GFR is not appl icable for dialysis patien ts Wire Drawing Setter ID - YASMIN MPROTHROMBIN [id number] 14:46:37 Test Item Value Reference Range Interpretation Comments PROTIME (BEAKER) 14.3 seconds 11.9-14.2 H (test code = 759) INR (BEAKER) (test 1.18 See_Comment [Automat ed message] code = 370) The system JLGOV generated this result transmitted ref erence range: <=5.90. The reference range was not used to int erpret this result as normal/abnormal . RECOMMENDED COUMADIN/WARFARIN INR THERAPY RANGESSTANDARD DOSE: 2.0 - 3.0 Includes: PROPHYLAXIS for venous thrombosis, systemic embolization; TREATMENT for venous thrombosis and/or pulmonary embolus.HIGH RISK: Target INR is 2.5-3.5 for patients with mechanical heart valves.CBC W/PLT COUNT & AUTO [id number] 14:37:29 Test Item Value Reference Range Interpretation Comments WHITE BLOOD CELL COUNT (BEAKER) 5.8 K/ L 3.5-10.5 (test code = 775) RED BLOOD CELL COUNT (BEAKER) 4.30 M/ L 4.63-6.08 L (test code = 761) HEMOGLOBIN (BEAKER) (test code = 13.6 GM/DL 13.7-17.5 L 410) HEMATOCRIT (BEAKER) (test code = 41.5 % 40.1-51.0 411) MEAN CORPUSCULAR VOLUME (BEAKER) 96.5 fL 79.0-92.2 H (test code = 753) MEAN CORPUSCULAR HEMOGLOBIN 31.6 pg 25.7-32.2 (BEAKER) (test code = 751) MEAN CORPUSCULAR HEMOGLOBIN CONC 32.8 GM/DL 32.3-36.5 (BEAKER) (test code = 752) RED CELL DISTRIBUTION WIDTH 13.1 % 11.6-14.4 (BEAKER) (test code = 412) PLATELET COUNT (BEAKER) (test 165 K/CU MM 150-450 code = 756) MEAN PLATELET VOLUME (BEAKER) 11.6 fL 9.4-12.4 (test code = 754) NUCLEATED RED BLOOD CELLS 0 /100 WBC 0-0 (BEAKER) (test code = 413) NEUTROPHILS RELATIVE PERCENT 57 % (BEAKER) (test code = 429) LYMPHOCYTES RELATIVE PERCENT 30 % (BEAKER) (test code = 430) MONOCYTES RELATIVE PERCENT 10 % (BEAKER) (test code = 431) EOSINOPHILS RELATIVE PERCENT 3 % (BEAKER) (test code = 432) BASOPHILS RELATIVE PERCENT 0 % (BEAKER) (test code = 437) NEUTROPHILS ABSOLUTE COUNT 3.28 K/ L 1.78-5.38 (BEAKER) (test code = 670) LYMPHOCYTES ABSOLUTE COUNT 1.72 K/ L 1.32-3.57 (BEAKER) (test code = 414) MONOCYTES ABSOLUTE COUNT (BEAKER) 0.58 K/ L 0.30-0.82 (test code = 415) EOSINOPHILS ABSOLUTE COUNT 0.16 K/ L 0.04-0.54 (BEAKER) (test code = 416) BASOPHILS ABSOLUTE COUNT (BEAKER) 0.01 K/ L 0.01-0.08 (test code = 417) IMMATURE GRANULOCYTES-RELATIVE 0 % 0-1 PERCENT (BEAKER) (test code = 2801) COVID-19 qualitative [id number] 01:17:25 Test Item Value Reference Range Interpretation Comments Interpretation (test Positive results code = [id number]) are indicative of active infection with 2019-nCoV but do not rule out bacterial infection or coinfection with other viruses. The agent detected may not be the definite cause of disease. COVID-19 qualitative Detected Not-Detected A RT-PCR result (test code = 47412-8) COVID-19 qualitative See link below for C ase Number: RT-PCR (test code = PDF Lab Report [id number]) Lab Interpretation Abnormal (test code = 31878-8) [facility][1]-CoV-2 (COVID-19) RNA [Presence] in Respiratory specimen by THOR with probe [id number] 19:17:06 Test Item Value Reference Range Interpretation Comments SARS-CoV-2 (COVID-19) RNA [Presence] Detected Not-Detected in Respiratory specimen by THOR with probe detection (test code = 05153-1)
--- NOTE | 2022-01-03 20:16 | RAD REPORT ---
EXAM DESCRIPTION: RAD - Chest Pa And Lat (2 Views) - 01/03/2022 7:54 pm CLINICAL HISTORY: cough COMPARISON: Chest Single View dated 11/28/2021; Chest Single View dated 01/01/2021; Chest Pa And Lat (2 Views) dated 05/04/2020; Chest Single View dated 04/10/2020; Abdomen Pelvis W Contrast dated 11/28/2021 FINDINGS: Lines: None. Lungs: Linear opacities at the left lung base are similar to 11/28/2021. Pleural: Blunted left costophrenic angle. Cardiac: The heart size is within normal limits. Mediastinum: Within normal limits. Bones: No acute fractures. Other: None IMPRESSION: Similar linear opacities and small left effusion at the left lung base which may represe nt sequela of recent pneumonia or round atelectasis in the setting of a chronic small left pleural ef fusion.
--- NOTE | 2022-01-03 20:42 | EDPHYS ---
Physician Documentation [facility] Name: Tiffanie Alvarez Age: 76 yrs Sex: Male : 1945 Arrival Date: 01/03/2022 Time: 15:12 Bed 9 Private MD: ED Physician Bobby Romero HPI: 01/03 18:30 This 76 yrs old Male presents to ER via Ambulatory with complaints of Cough, Congestion.cp 18:30 The patient or guardian reports cough, that is intermittent, sounds productive. Onset: cp The symptoms/episode began/occurred last week. Severity of symptoms: in the emergency department the symptoms are unchanged, despite home interventions. Associated signs and symptoms: Pertinent negatives: chest pain, diarrhea, fever, sore throat, vomiting. Patient here with who reports similar symptoms and reports she tested positive for COVID-19 with home test today. Historical: - Allergies: 15:49 No Known Allergies; bm7 - Home Meds: 15:49 atorvastatin 20 mg Oral tab 1 tab q other day [Active]; Bengay Ultra Strength Topical bm7 oint [Active]; Lactobacillus acidoph-pectin Oral cap [Active]; Myrbetriq 25 mg Oral Tb24 1 tab once daily [Active]; latanoprost 0.005 % ophthalmic (eye) drop [Active]; Flomax 0.4 mg Oral cap 1 cap once daily [Active]; Plavix 75 mg Oral tab 1 tab once daily [Active]; finasteride 5 mg Oral tab 1 tab once daily [Active]; Miralax 17 gram/dose Oral powd [Active]; silodosin 4 mg Oral 1 cap once daily [Active]; rosuvastatin 40 mg Oral tab 1 tab once daily [Active]; losartan 50 mg Oral tab 1 tab once daily [Active]; levothyroxine 75 mcg tab 1 tab once daily [Active]; glimepiride 2 mg Oral tab 1 tab once daily [Active]; brimonidine 0.1 % ophthalmic (eye) drop [Active]; nexabiotic, once daily [Active]; dorzolamide 2 % ophthalmic drop 1 drop 3 times per day [Active]; - PMHx: 15:49 BLINDNESS; CVA; Diabetes - NIDDM; Hypertension; hypotension; Irregular heart rate; lung bm7 fibrosis; Hypothyroidism; Myocardial infarction; - PSHx: 15:49 Cardiac Stent; bm7 - Immunization history:: Client reports having NOT received the Covid vaccine. - Social history:: Smoking status: Patient denies any tobacco usage or history of. ROS: 18:35 Constitutional: Negative for body aches, chills, fever, poor PO intake. cp 18:35 Eyes: Negative for injury, pain, redness, and discharge. cp 18:35 ENT: Negative for drainage from ear(s), ear pain, sore throat, difficulty swallowing, difficulty handling secretions. 18:35 Cardiovascular: Negative for chest pain, edema, palpitations. 18:35 Respiratory: Positive for cough, "sounds productive", Negative for shortness of breath, wheezing. 18:35 Abdomen/GI: Negative for abdominal pain, vomiting, diarrhea, constipation. 18:35 Neuro: Negative for altered mental status, dizziness, headache, numbness, weakness. 18:35 All other systems are negative. Exam: 18:40 Constitutional: The patient appears in no acute distress, alert, awake, comfortable, cp non-diaphoretic, non-toxic, well developed, well nourished. 18:40 Head/Face: Normocephalic, atraumatic. cp 18:40 Eyes: Periorbital structures: appear normal, Conjunctiva: normal, no exudate, no injection, Sclera: no appreciated abnormality, Lids and lashes: appear normal, bilaterally. 18:40 ENT: External ear(s): are unremarkable, Ear canal(s): are normal, clear, TM's: dullness, bilaterally, Nose: is normal, Mouth: Lips: moist, Oral mucosa: moist, Posterior pharynx: Airway: no evidence of obstruction, patent. 18:40 Neck: ROM/movement: is normal, is supple, no meningismus, no nuchal rigidity. 18:40 Chest/axilla: Inspection: normal. 18:40 Cardiovascular: Rate: normal, Edema: is not appreciated, JVD: is not appreciated. 18:40 Respiratory: the patient does not display signs of respiratory distress, Respirations: normal, no use of accessory muscles, no retractions, labored breathing, is not present, Breath sounds: bronchial sounds, that are mild, are heard in the left posterior lower lobe, right posterior middle lobe and right posterior lower lobe, decreased breath sounds, are not appreciated, stridor, is not appreciated, + upper airway congestion. 18:40 Abdomen/GI: Exam negative for discomfort, distension, guarding, Inspection: abdomen appears normal. 18:40 Back: pain, is absent, ROM is normal. 18:40 Skin: no rash present. 18:40 Neuro: Orientation: to person, place \\T\\ time. Mentation: is normal, Motor: moves all fours, strength is normal, Gait: is steady. Vital Signs: 15:46 BP 132 / 74; Pulse 60; Resp 16; Temp 97.7(TE); Pulse Ox 98% on R/A; Weight 81.19 kg bm7 (R); Height 5 ft. 10 in. (177.80 cm); Pain 0/10; 21:00 BP 128 / 70; Pulse 60; Resp 18; Pulse Ox 100% ; kb3 15:46 Body Mass Index 25.68 (81.19 kg, 177.80 cm) bm7 MDM: 18:21 Patient medically screened. cp 19:00 Differential Diagnosis: Bronchitis Influenza Viral Syndrome Pneumonia Other COVID-19. cp 20:40 Data reviewed: vital signs, nurses notes, lab test result(s), radiologic studies, plain cp films. 20:40 Test interpretation: by ED physician or midlevel provider: plain radiologic studies. cp Counseling: I had a detailed discussion with the patient and/or guardian regarding: the historical points, exam findings, and any diagnostic results supporting the discharge/admit diagnosis, lab results, radiology results, the need for outpatient follow up, a family practitioner, an floor broker, to return to the emergency department if symptoms worsen or persist or if there are any questions or concerns that arise at home. ED course: VSS. Patient appears non-toxic and no signs of respiratory distress. Will discharge to home for continued monitoring. 01/03 15:48 Order name: COVID-19 SARS RT PCR (Document "Date of Onset" if Symptomatic) 01/03 17:35 Order name: SARS-COV-2 RT PCR; Complete Time: 19:17 EDMS 01/03 19:17 Interpretation: Results reviewed. 01/03 17:37 Order name: Influenza Screen (A ; Complete Time: 19:17 EDMS 01/03 19:17 Interpretation: Reviewed. 01/03 20:17 Order name: RAD; Complete Time: 20:34 EDMS Administered Medications: No medications were administered Disposition Summary: 01/03/22 20:41 Discharge Ordered Location: Home cp Problem: new cp Symptoms: are unchanged cp Condition: Stable cp Diagnosis - Acute bronchitis due to other specified organism cp Followup: cp - With: Private Physician - When: 2 - 3 days - Reason: Recheck today's complaints Discharge Instructions: - Discharge Summary Sheet cp - Acute Bronchitis, Adult cp Forms: - Medication Reconciliation Form cp - Thank You Letter cp - Antibiotic Education cp - Prescription Opioid Use cp Prescriptions: - Tessalon Perles 100 mg Oral Capsule - take 1 capsule by ORAL route every 8 hours As needed; 15 capsule; Refills: 0, cp Product Selection Permitted - Zithromax Z-Percy 250 mg Oral Tablet - take 1 tablet by ORAL route as directed for 5 days Day 1 - take two (2) tablets cp one time. Day 2, 3, 4 , 5 take one (1) tablet once daily.; 6 tablet; Refills: 0, Product Selection Permitted Addendum: 01/04/2022 22:34 Co-signature as Attending Physician, Bobby Romero MD. r n Signatures: Dispatcher [employer] EDMS Bobby Romero MD MD rn Tuan Banerjee PA PA cp Kimberlee Adan, RN RN bm7
--- NOTE | 2022-01-03 20:42 | ER ---
Nurse's Notes [facility] Name: Tiffanie Alvarez Age: 76 yrs Sex: Male : 1945 Arrival Date: 01/03/2022 Time: 15:12 Bed 9 Private MD: Diagnosis: Acute bronchitis due to other specified organism Presentation: 01/03 15:46 Chief complaint: Spouse and/or significant other states: I tested positive for covid bm7 today and he is having the same symptoms. I tested him last Sunday and he was negative but he has a wet cough now. Coronavirus screen: Client presents with at least one sign or symptom that may indicate coronavirus-19. The client reports previous COVID testing was negative. Ebola Screen: No symptoms or risks identified at this time. Initial Sepsis Screen: Does the patient meet any 2 criteria? No. Patient's initial sepsis screen is negative. Does the patient have a suspected source of infection? No. Patient's initial sepsis screen is negative. Risk Assessment: Do you want to hurt yourself or someone else? Patient reports no desire to harm self or others. Onset of symptoms was January 02, 2022. 15:46 Method Of Arrival: Ambulatory bm7 15:46 Acuity: ANDREEA 4 bm7 Triage Assessment: 15:49 General: Appears in no apparent distress. comfortable, Behavior is calm, cooperative, bm7 appropriate for age. Pain: Denies pain. EENT: No deficits noted. No signs and/or symptoms were reported regarding the EENT system. Neuro: No deficits noted. Cardiovascular: No deficits noted. Chest pain is denied. Respiratory: Breath sounds are coarse bilaterally. Parent/caregiver reports the patient having cough that is non-productive. GI: No deficits noted. No signs and/or symptoms were reported involving the gastrointestinal system. : No deficits noted. No signs and/or symptoms were reported regarding the genitourinary system. Derm: No deficits noted. No signs and/or symptoms reported regarding the dermatologic system. Skin is fragile, is thin, Skin is dry, Skin is pink, warm \T\ dry. Musculoskeletal: No deficits noted. No signs and/or symptoms reported regarding the musculoskeletal system. Historical: - Allergies: 15:49 No Known Allergies; bm7 - Home Meds: 15:49 atorvastatin 20 mg Oral tab 1 tab q other day [Active]; Bengay Ultra Strength Topical bm7 oint [Active]; Lactobacillus acidoph-pectin Oral cap [Active]; Myrbetriq 25 mg Oral Tb24 1 tab once daily [Active]; latanoprost 0.005 % ophthalmic (eye) drop [Active]; Flomax 0.4 mg Oral cap 1 cap once daily [Active]; Plavix 75 mg Oral tab 1 tab once daily [Active]; finasteride 5 mg Oral tab 1 tab once daily [Active]; Miralax 17 gram/dose Oral powd [Active]; silodosin 4 mg Oral 1 cap once daily [Active]; rosuvastatin 40 mg Oral tab 1 tab once daily [Active]; losartan 50 mg Oral tab 1 tab once daily [Active]; levothyroxine 75 mcg tab 1 tab once daily [Active]; glimepiride 2 mg Oral tab 1 tab once daily [Active]; brimonidine 0.1 % ophthalmic (eye) drop [Active]; nexabiotic, once daily [Active]; dorzolamide 2 % ophthalmic drop 1 drop 3 times per day [Active]; - PMHx: 15:49 BLINDNESS; CVA; Diabetes - NIDDM; Hypertension; hypotension; Irregular heart rate; lung bm7 fibrosis; Hypothyroidism; Myocardial infarction; - PSHx: 15:49 Cardiac Stent; bm7 - Immunization history:: Client reports having NOT received the Covid vaccine. - Social history:: Smoking status: Patient denies any tobacco usage or history of. Screenin:30 Abuse screen: Denies threats or abuse. Denies injuries from another. Nutritional kb3 screening: No deficits noted. Tuberculosis screening: No symptoms or risk factors identified. Fall Risk None identified. Assessment: 18:30 General: Appears in no apparent distress. Behavior is calm, cooperative, Received care kb3 of pt from [facility], ambulatory with walking stick for the blind. No distress noted. Pt's spouse states pt with productive cough x2-3 days. Reports she tested positive for covid today at home and is worried that he might have covid as well.. 18:30 Cardiovascular: Denies chest pain, fatigue, lightheadedness, nausea, shortness of kb3 breath. Respiratory: Breath sounds are clear bilaterally. Vital Signs: 15:46 BP 132 / 74; Pulse 60; Resp 16; Temp 97.7(TE); Pulse Ox 98% on R/A; Weight 81.19 kg bm7 (R); Height 5 ft. 10 in. (177.80 cm); Pain 0/10; 21:00 BP 128 / 70; Pulse 60; Resp 18; Pulse Ox 100% ; kb3 15:46 Body Mass Index 25.68 (81.19 kg, 177.80 cm) bm7 ED Course: 15:12 Patient arrived in ED. mr 15:17 Tuan Banerjee PA is PHCP. cp 15:17 Bobby Romero MD is Attending Physician. cp 15:49 Triage completed. bm7 15:49 Arm band placed on right wrist. bm7 18:30 Patient has correct armband on for positive identification. Bed in low position. Call kb3 light in reach. Side rails up X 1. Adult w/ patient. Warm blanket given. 18:30 No provider procedures requiring assistance completed. Patient did not have IV access kb3 during this emergency room visit. 18:40 Sol Zheng, RN is Primary Nurse. kb3 Administered Medications: No medications were administered Medication: 18:30 VIS not applicable for this client. kb3 Outcome: 20:41 Discharge ordered by . cp 21:00 Discharged to home via wheelchair. kb3 21:00 Condition: stable 21:00 Discharge instructions given to patient, significant other, Instructed on discharge instructions, follow up and referral plans. medication usage, Demonstrated understanding of instructions, follow-up care, medications, Prescriptions given X 2. 21:35 Patient left the ED. kb3 Signatures: Ghazala Olivares mr Tuan Banerjee PA PA cp Kimberlee Adan, RN RN [facility] Sol Zheng, RN RN kb3
[2022-01-04 01:00] VITALS: TEMP 97.7
[2022-01-04 01:01] VITALS: BP 128/70; O2SAT 100
== END 2022-01-03 21:35 | disposition home or self-care (01) ==
LOC: ER 15:05
DX: J20.8 Acute bronchitis due to other specified organisms (principal); Z20.822 Contact with and (suspected) exposure to COVID-19; I10 Essential (primary) hypertension; E11.9 Type 2 diabetes mellitus without complications; Z79.01 Long term (current) use of anticoagulants
CPT/HCPCS: 36415; 87804 ×2; 71046; U0003; 99282

== ENCOUNTER 2022-03-02 19:16 | Inpatient (IN) | payer OTHER ==
--- OUTSIDE RECORDS SUMMARY | 2022-03-02 19:21 | XMS REPORT | Continuity of Care Document ---
:1945 Author Organization [facility] t Address [address] [place] [address] Care Team Providers Name Role Phone MALIA MUNGUIA Primary Care Physician UnavailYeyo Almanza MD Attending Clinician Renae Garay Attending Clinician [phone] Sarah Stock Attending Clinician [address] [place], [place] [address]r Ct Room Attending Clinician Unavailable SARAH STOCK Attending Clinician Unavailable Marina Wells MA Attending Clinician Unavailable Luz Mccallum RN Attending Clinician Unavailable YEYO WELLS Attending Clinician Unavailable Reshma Herrera Attending Clinician Unavailable Israel ONEAL, David Marshall Attending Clinician MD DAVID WOOD Attending Clinician Unavailable MD DAVID WOOD Admitting Clinician Unavailable Payers Payer Name Policy Type Policy Number Effective Date Expiration Date S ource Problems This patient has no known problems. Allergies, Adverse Reactions, Alerts Allergy Allergy Status Severity Reaction(s) Onset Inactive Treating Comm ents Source Name Type Date Date Clinician NO KNOWN Allergy Active [facility] Family History Family Member Diagnosis Comments Start Date Stop Date Source Natural father Stroke [facility] Natural mother Diabetes [facility] Social History Social Habit Start Date Stop Date Quantity Comments Source History SDOH [facility] Std Drinks [facility] Center History SDOH [facility] Alcohol Binge Medical Melinda ter History SDOH [facility] Alcohol Comment Medical C enter Tobacco use and 2021-12-01 2021-12-[address] [facility] kes exposure 00:00:00 00:00:00 [facility] Alcohol intake 2021-12-01 2021-12-[address] [facility]ie es 00:00:00 00:00:00 non-drinker Medical Enrique r (finding) History SDOH 2021-12-01 2021-12-01 1 [facility] Frequency 00:00:00 00:00:00 [facility] Sex Ass[birth year] At [birth year] RUTH Diallo 00:00:00 00:00:00 [facility] Center Smoking Status Start Date Stop Date Source Tobacco smoking consumption unknown [facility] Never smoker [facility] Med ical [place] Medications Ordered Filled Start Stop Current Ordering Indication Dosage Frequency Signature Comments Components Source Medication Medication Date Date Medication? Clinician (SIG) Name Name glimepiride Yes glimepirid [facility] St (AMARYL) 1 04 e 2 mg [facility] MG tablet 11:06: tablet TK Med ical 00 1 T PO D Center WITH BREAKFAST. STOP PRANDIN brimonidine Yes [facility] (ALPHAGAN 12-01 [facility]ukes P) 0.1 % 11:06: Medical Drop 00 [place] latanoprost Yes 1[drp] QD [address] (XALATAN) 8 nightly. [facility] 0.005 % 11:06: Medical ophthalmic 00 [place] solution Lactobacill Yes 1{tbl} Q.5D Take [address] us 12-01 tablet by Tammie acidoph-L.b 11:06: mouth 2 Med ical ulgar 00 (two) Center (FLORANEX) times 1 million daily. cell Tab per tablet glucosamine Yes 1{tbl} Q.[id number] Take [address] -chondroiti 8- [id number] tablet by Tammie n 500-400 11:06: 3D mouth 3 Medic al mg tablet 00 (three) Center times daily. calcium Yes 1{tbl} QD Take [address] carbonate-v 8- tablet by Angie medina itamin D3 11:06: mouth Medical (OSCAL) 250 00 daily. Center mg-3.125 mcg (125 unit) Tab per tablet glimepiride Yes glimepirid [facility] (AMARYL) 1 8-04 e 2 mg [facility] MG tablet 11:06: tablet TK Med ical 00 1 T PO D Center WITH BREAKFAST. STOP PRANDIN brimonidine Yes [facility] (ALPHAGAN 804 [facility]ukes P) 0.1 % 11:06: Medical Drop 00 Center latanoprost Yes 1[drp] QD [address] (XALATAN) 8-04 nightly. [facility] 0.005 % 11:06: Medical ophthalmic 00 Center solution Lactobacill Yes 1{tbl} Q.5D Take [address] us 804 tablet by Tammie acidoph-L.b 11:06: mouth 2 Med ical ulgar 00 (two) Center (FLORANEX) times 1 million daily. cell Tab per tablet glucosamine Yes 1{tbl} Q.[id number] Take [address] -chondroiti 8 [id number] tablet by Tammie n 500-400 11:06: 3D mouth 3 Medic al mg tablet 00 (three) Center times daily. calcium Yes 1{tbl} QD Take [address] carbonate-v 804 tablet by Angie medina itamin D3 11:06: mouth Medical (OSCAL) 250 00 daily. Center mg-3.125 mcg (125 unit) Tab per tablet clopidogreL Yes 75mg QD Take [address] (PLAVIX) 75 8-04 by mouth Luke s mg tablet 11:05: daily. Medica l 59 Center levothyroxi Yes 75ug Take [address] ne 8-04 mcg by Tammie (SYNTHROID, 11:05: mouth Medic al LEVOTHROID) 59 Every Center 75 MCG morning on tablet an empty stomach. finasteride Yes 5mg QD Take [address] (PROSCAR) 5 8-04 by mouth Luke s mg tablet 11:05: daily. Medica l 59 Center tamsulosin Yes .4mg QD Take 0.[address] (FLOMAX) 8-04 mg by Tammie 0.4 mg Cap 11:05: mouth Medica l 24 hr 59 daily. Center capsule mirabegron Yes QD Take by [facility] (Myrbetriq) 8-04 mouth Lukes 25 mg Tb24 11:05: daily. Medic al ER tablet 59 Center atorvastati Yes 20mg QD Take [address] n (LIPITOR) 8-04 by mouth Luke s 20 MG 11:05: daily. Medical tablet 59 Center netarsudiL- Yes Apply to [facility] latanoprost 8-04 eye(s). Lukes 0.02-0.005 11:05: Medical % Drop 59 Center clopidogreL Yes 75mg QD Take 75 mg [...] mouth Medica l 24 hr 59 daily. Center capsule mirabegron Yes QD Take by [facility] (Myrbetriq) 8-04 mouth [facility]ukes 25 mg Tb24 11:05: daily. Medic al ER tablet 59 Center atorvastati Yes 20mg QD Take [address] n (LIPITOR) 8-04 by mouth Luke s 20 MG 11:05: daily. Medical tablet 59 Center netarsudiL- Yes Apply to [facility] latanoprost 8-04 eye(s). [facility]ukes 0.02-0.005 11:05: Medical % Drop 59 Center Vital Signs Vital Name Observation Time Observation Value Comments Source Systolic blood 2021-12-01 11:31:00 144 mm[Hg] [facility] Diastolic blood 2021-12-01 11:31:00 77 mm[Hg] [facility] Heart rate 2021-12-01 11:31:00 55 /min [facility] Body temperature 2021-12-01 11:31:00 36.17 [facility] Body height 2021-12-01 11:31:00 180.3 cm [facility] Body weight 2021-12-01 11:31:00 80.06 kg [facility] BMI 2021-12-01 11:31:00 24.62 kg/m2 [facility] Oxygen saturation in 2021-12-01 11:31:00 96 /min [facility] Arterial blood by Medical Ce nter Pulse oximetry Procedures Procedure Date / Time Performing Clinician Source Performed CT CHEST WITHOUT IV 2021-12-15 10:50:00 Sarah Stock [facility] COMPREHENSIVE METABOLIC 2021-12-01 12:44:00 Sarah Stock [facility] BILIRUBIN, DIRECT 2021-12-01 12:44:00 Sarah Stock [facility] CBC W/PLT COUNT & AUTO 2021-12-01 12:44:00 Sarah Stock [facility] PROTHROMBIN TIME/INR 2021-12-01 12:44:00 Sarah Stock [facility] HEPATITIS A ANTIBODY, IGG 2021-12-01 12:44:00 Sarah Stock [facility] HEPATITIS A ANTIBODY, IGM 2021-12-01 12:44:00 Sarah Stock [facility] HEPATITIS B SURFACE ANTIGEN 2021-12-01 12:44:00 Sarah Stock [facility] HEPATITIS B SURFACE 2021-12-01 12:44:00 [facility] CORE [facility]TIBODY, 2021-12-01 12:44:00 Sarah Stock [facility] HEPATITIS C ANTIBODY 2021-12-01 12:44:00 Anudu, [facility] IRON, TIBC, % SAT. (WITHOUT 2021-12-01 12:44:00 Anudu, [facility] FERRITIN) [facility] FERRITIN 2021-12-01 12:44:00 Anudu, [facility] [id number]\, SERUM 2021-12-01 12:44:00 Anudu, [facility] CERULOPLASMIN 2021-12-01 12:44:00 Anudu, [facility] ANTI-NUCLEAR ANTIBODY (GRACY) 2021-12-01 12:44:00 Anudu, [facility] ACTIN (SMOOTH MUSCLE) 2021-12-01 12:44:00 Anudu, [facility] ANTIBODY, IGG [facility] MITOCHONDRIA M2 ANTIBODY 2021-12-01 12:44:00 Anudu [facility] (IGG) [facility] ALPHA FETOPROTEIN (AFP), 2021-12-01 12:44:00 Anericu, [facility] TUMOR MARKER [facility] CARBOHYDRATE ANTIGEN 19-9 2021-12-01 12:44:00 Ankishor [facility] I [facility] ([place] 19-9) [facility] CARCINOEMBRYONIC ANTIGEN 2021-12-01 12:44:00 Ankishor [facility] (CEA) [facility] GRACY TITER AND PATTERN 2021-12-01 12:44:00 Anudu, [facility] CBC W/PLT COUNT & AUTO 2021-12-01 12:44:00 Ankishor [facility] DIFFERENTIAL [facility] COVID-19 QUALITATIVE RT-PCR 2020-05-20 19:30:00 David Wood [facility] Plan of Care Planned Activity Planned Date Details Comments Source Future Scheduled 2022 HEPATITIS B VACCINES [facility] Test 06:27:00 (1 of 3 - 3-dose series) [code = HEPATITIS B VACCINES (1 of 3 - 3-dose series)] Future Scheduled 2022 COVID-19 VACCINE (#1) Me [facility] Test 06:27:00 [code = COVID-19 VACCINE (#1)] Future Scheduled 2022 SHINGLES VACCINES (1 Met [facility] Test 06:27:00 of 2) [code = SHINGLES VACCINES (1 of 2)] Future Scheduled 2022 65+ P[facility]UMOCOCCAL [facility] Test 06:27:00 VACCINE (1 - PCV) [code = 65+ PNEUMOCOCCAL VACCINE (1 - PCV)] Future Scheduled 2022 INFLUENZA VACCINE [facility] Test 06:27:00 [code = INFLUENZA VACCINE] Future Scheduled 2021-12-30 HEPATITIS B VACCINES Met [facility] Test 19:10:41 (1 of 3 - 3-dose series) [code = HEPATITIS B VACCINES (1 of 3 - 3-dose series)] Future Scheduled 2021-12-30 COVID-19 VACCINE (#1) [facility] Test 19:10:41 [code = COVID-19 VACCINE (#1)] Future Scheduled 2021-12-[address] [facility] Test 19:10:41 [code = COLONOSCOPY SCREENING] Future Scheduled 2021-12-30 SHINGLES VACCINES (1 [facility] Test 19:10:41 of 2) [code = SHINGLES VACCINES (1 of 2)] Future Scheduled 2021-12-30 65+ PNEUMOCOCCAL Method[facility] Hospital Test 19:10:41 VACCINE (1 - PCV) [code = 65+ PNEUMOCOCCAL VACCINE (1 - PCV)] Future Scheduled 2021-12-30 INFLUENZA VACCINE [facility] Test 19:10:41 [code = INFLUENZA VACCINE] Future Scheduled 2021-12-29 INFLUENZA VACCINE (#1) [facility] Test 00:00:00 [code = INFLUENZA Medical Ce nter VACCINE (#1)] Future Scheduled 2021-12-29 INFLUENZA VACCINE (#1) [facility] Test 00:00:00 [code = INFLUENZA Medical Ce nter VACCINE (#1)] Future Scheduled 2021-05-31 COVID-19 VACCINE (1) [facility] Test 13:15:12 [code = COVID-19 VACCINE (1)] Future Scheduled 2021-05-31 65+ [facility]UMOCOCCAL [facility] Test 13:15:12 VACCINE (1 of 2 - PPSV23) [code = 65+ PNEUMOCOCCAL VACCINE (1 of 2 - PPSV23)] Future Scheduled 2021-05-[address] [facility] Test 13:15:12 (procedure) [code = 227389233] Future Scheduled 2021-05-[address] [facility] Test 13:15:12 [code = COLONOSCOPY SCREENING] Future Scheduled 2021-05-31 SHINGLES VACCINES (#1) [facility] Test 13:15:12 [code = SHINGLES VACCINES (#1)] Future Scheduled 2021-05-31 INFLUENZA VACCINE [facility] Test 13:15:12 [code = INFLUENZA VACCINE] [...] Medicare IPPE (WELCOME TO MEDICARE)] Future Scheduled 2021-04-[address] [...] 65+ YRS (1 - PCV)] Future Scheduled 2010 PNEUMOCOCCAL 65+ Y[facility] Test 00:00:00 (1 - PCV) [code = Medical Ce nter PNEUMOCOCCAL 65+ YRS (1 - PCV)] Future Scheduled 1995 SHINGLES VACCINES ([address] [facility] Test 00:00:00 of 2) [code = SHINGLES Medic al Center VACCINES (1 of 2)] Future Scheduled 1995 SHINGLES VACCINES ([address] [facility] Test 00:00:00 of 2) [code = SHINGLES Medic al Center VACCINES (1 of 2)] Future Scheduled 1964[birth year]02-28 DTAP/TDAP/TD VACCINES [facility] Test 00:00:00 (1 - Tdap) [code = Medical C enter DTAP/TDAP/TD VACCINES (1 - Tdap)] Future Scheduled 1964-02-28 DTAP/TDAP/TD VACCINES [facility] Test 00:00:00 (1 - Tdap) [code = Medical C enter DTAP/TDAP/TD VACCINES (1 - Tdap)] Future Scheduled 1945 COVID-19 VACCINE (#1) [facility] Test 00:00:00 [code = COVID-[address] VACCINE (#1)] Future Scheduled 1945 COVID-19 VACCINE (#1) CH [...] (1)] Future Scheduled [facility] (procedure) [code = 168162710] Future Scheduled [facility] [code = COLONOSCOPY SCREENING] Future Scheduled SHINGLES VACCINES (#1) [facility] Test [code = SHINGLES VACCINES (#1)] Future Scheduled INFLUENZA VACCINE [facility] Test [code = INFLUENZA VACCINE] Encounters Start End Encounter Admission Attending Care Care Encounter Source Date/Time Date/Time Type Type Clinicians Facility Department ID 2022 2022 Telephone JOSE Wells [id number] 00:[facility]00 00:00:00 [facility] 2022 2022 Orders Campo, [facility] [id number] 00:00:00 00:00:00 Only [facility] 2021-12-15 2021-12-15 [facility] [id number] 10:34:57 23:59:00 Encounter 1, [facility] [address] Room [facility] 2021-12-15 2021-12-15 Outpatient [facility] [place] [id number] [facility] 10:34:57 23:59:00 [facility] 2021-12-15 2021-12-15 [facility] [id number] 10:34:57 23:59:00 Encounter 1, [facility] [address] Room [facility] 2021-12-09 2021-12-09 [facility] [id number] 00:00:00 00:00:00 [facility] 2021-12-09 2021-12-09 Abstract Priscilla [facility] [id number] 00:00:00 00:00:00 [facility] 2021-12-06 2021-12-06 Telephone Alessio [facility] [id number] 00:00:00 00:00:00 [facility] 2021-12-06 2021-12-06 Denise Mccallum [facility] [id number] 00:00:00 00:00:00 [facility] 2021-12-02 2021-12-02 Lenny Mccallum [facility] [id number] [id number] 00:00:00 00:00:00 ion [facility] 2021-12-02 2021-12-02 Lenny Mccallum [facility] [id number] [id number] 00:00:00 00:00:00 [facility] 2021-12-01 2021-12-01 Office Russell, [facility] [id number] 11:00:00 12:00:00 Visit [facility] 2021-12-01 2021-12-01 Office BRYNN Wells, [facility] [id number] 11:00:00 12:00:00 Visit [facility] 2021-12-01 2021-12-01 Outpatient BRYNN WELLS, [facility] [id number] SLE 10:47:10 10:47:10 [facility] 2021-11-16 2021-11-16 [facility] [id number] [id number] 00:00:00 00:00:00 [facility] 2021-11-16 2021-11-16 [facility] [id number] 00:00:00 00:00:00 [facility] 2020-05-20 2020-05-20 Fabián Wood, 1.2.840.1 [id number] Methodi 13:19:54 13:34:[address] 3.430.2.7 Hospit a .3.323643 l .8 2020-05-20 2020-05-20 Travel 1.2.840.1 1.2.862.943 [id number] Methodi 00:00:00 00:00:[address] 3.430.2.7 0.2.7.3.698 Ho spita .3.629220 084.8 l .8 2020-05-11 2020-05-11 Lyndsey Wood 1.2.840.1 [id number] Methodi 00:00:00 00:00:00 Only David L. 41243.1.[address] 3.430.2.7 Hospit a .3.757081 l .8 Results Test Description Test Time Test Comments Results Result [facility] e Comments CT, CHEST, WITHOUT 2021-12-16 Referred by: IV CONTRAST 11:52:00 Magdy [id number] 007Unlisted [facility] Reason for CENTERName: MARIANO, Exam - Click IRINEO TOVAR : Yes [...] lobe solid pulmonary nodule. Signed: Jorgito Palomo Verified Date/Time: 12/16/2021 11:52:37 Reading Location: [facility] Reading Room [address] [place] [address] Y TITER AND PATTERN 2021-12-05 13:41:49 Test Item Value Reference Range Interpretation Comme nts GRACY TITER (BEAKER) (test code = 1541) :160 GRACY PATTERN (BEAKER) (test code = 1781) Nucleolar ANTI-NUCLEAR ANTIBODY (GRACY)2021-12-05 13:41:38 Test Item Value Reference Range Interpretation Comments ANTI-NUCLEAR ANTIBODY (GRACY) (BEAKER) Positive Negative A (test code = 418) Test performed by IFA method.[id number] 17:07:28 Test Item Value Reference Range Interpretation Comments FERRITIN (BEAKER) (test code = 326.37 ng/mL 5.00-275.00 H 361) Cellular Biologist ID - JEREMIAH LCARCINOEMBRYONIC ANTIGEN (CEA)2021-12-01 16:20:58 Test Item Value Reference Range Interpretation Comments CARCINOEMBRYONIC ANTIGEN (BEAKER) 1.4 ng/mL 0.0-5.0 (test code = 685) Cellular Biologist ID - YASMIN MALPHA FETOPROTEIN (AFP), TUMOR [id number] 16:20:58 Test Item Value Reference Range Interpretation Comments ALPHA-FETOPROTEIN (BEAKER) (test 105.2 ng/mL <10.0 H code = 1094) Cellular Biologist ID - YASMIN MHEPATITIS A ANTIBODY, [id number] 16:20:58 Test Item Value Reference Range Interpretation Comments HEPATITIS A IGM ANTIBODY (BEAKER) Nonreactive Nonreactive (test code = 498) Cellular Biologist ID - YASMIN MHEPATITIS A ANTIBODY, [id number] 16:20:58 Test Item Value Reference Range Interpretation Comments HEPATITIS A IGG ANTIBODY (BEAKER) Nonreactive Nonreactive (test code = 2797) Cellular Biologist ID - YASMIN MHEPATITIS B CORE ANTIBODY, [id number] 16:18:45 Test Item Value Reference Range Interpretation Comments HEPATITIS B CORE TOTAL ANTIBODY Reactive Nonreactive A (BEAKER) (test code = 497) Cellular Biologist ID - YASMIN MHEPATITIS B SURFACE [id number] 16:12:55 Test Item Value Reference Range Interpretation Comments HEPATITIS B SURFACE ANTIBODY 21.9 mIU/mL <8.0 H (BEAKER) (test code = 647) Cellular Biologist ID - YASMIN MHEPATITIS C [id number] 16:12:55 Test Item Value Reference Range Interpretation Comments HEPATITIS C ANTIBODY (BEAKER) Nonreactive Nonreactive (test code = 367) Cellular Biologist ID - YASMIN MHEPATITIS B SURFACE [id number] 16:12:55 Test Item Value Reference Range Interpretation [...] 24 % 20-55 (test code = 2590) Cellular Biologist ID - YASMIN [id number] 15:37:05 Test Item Value Reference Range Interpretation Comments ALPHA-1 ANTITRYPSIN (BEAKER) 204.60 mg/dL 90.00-200.00 H (test code = 502) Cellular Biologist ID - YASMIN WILLINGHAMBIN, [id number] 15:32:23 Test Item Value Reference Range Interpretation Comments BILIRUBIN DIRECT (BEAKER) (test 0.2 mg/dL 0.1-0.5 code = 706) Cellular Biologist ID Val HOFFMAN MCOMPREHENSIVE METABOLIC [id number] 15:32:22 Test Item Value Reference Range Interpretation [...] not as accur ate as Creatinine Janet kasi in predicting glom erular filtration rate . Estimated GFR is not appl icable for dialysis patien ts Cellular Biologist ID - YASMIN MPROTHROMBIN TIME/[id number] 14:46:37 Test Item Value Reference Range Interpretation Comments PROTIME (BEAKER) 14.3 seconds 11.9-14.2 H (test code = 759) INR (BEAKER) (test 1.18 See_Comment [Automat ed message] code = 370) The system [employer] generated this result transmitted ref erence range: <=5.90. The reference range was not used to int erpret this result as normal/abnormal . RECOMMENDED COUMADIN/WARFARIN INR THERAPY RANGESSTANDARD DOSE: 2.0 - 3.0 Includes: PROPHYLAXIS for venous thrombosis, systemic embolization; TREATMENT for venous thrombosis and/or pulmonary embolus.HIGH RISK: Target INR is 2.5-3.5 for patients with mechanical heart valves.CBC W/PLT COUNT & AUTO [id number] 14:37:29 Test Item Value Reference Range Interpretation [...] (BEAKER) (test code = 2801) COVID-19 qualitative [id number] 01:17:25 Test Item Value Reference Range Interpretation Comments Interpretation (test Positive results code = 4666435) are indicative of active infection with 2019-nCoV but do not rule out bacterial infection or coinfection with other viruses. The agent detected may not be the definite cause of disease. COVID-19 qualitative Detected Not-Detected A RT-PCR result (test code = 60020-9) COVID-19 qualitative See link below for C ase Number: RT-PCR (test code = PDF Lab Report [id number]) Lab Interpretation Abnormal (test code = 81048-4) [facility] [Presence] in Respiratory specimen by THOR with probe [id number] 19:17:06 Test Item Value Reference Range Interpretation Comments SARS-CoV-2 (COVID-19) RNA [Presence] Detected Not-Detected in Respiratory specimen by THOR with probe detection (test code = 87827-8) [facility]
[2022-03-02] MEDS ORDERED: NA CHLORIDE 0.9% 1,000 ML ONE (20:40)
[2022-03-02 20:47] LABS: Absolute Lymphocytes (CBC) 0.5 K/uL (0.7-4.9); Hematocrit 47.5 % (39.6-49.0); Lymphocytes % 6.2 % (15.3-44.8); MCV 95.7 fL (80-100); MPV 9.9 fL (7.6-11.3); RBC Red Blood Cell Count 4.96 M/uL (4.33-5.43)
[2022-03-02 20:51] LABS: Blood Morphology Comment NOT SEEN (NOT SEEN); Platelet Estimate DECR; Platelets, Giant PRESENT; White Blood Cell Scan OK (OK)
[2022-03-02] MEDS ORDERED: ONDANSETRON 4 MG/2 ML VIAL ONE (20:52)
[2022-03-02 21:09] LABS: Albumin 3.4 g/dL (3.4-5.0); Bilirubin Total 0.7 mg/dL (0.2-1.0); Potassium 3.9 mmol/L (3.5-5.1); Protein, Total 7.8 g/dL (6.4-8.2)
--- NOTE | 2022-03-02 21:45 | RAD REPORT ---
EXAM DESCRIPTION: CT - Chest Angio - 03/02/2022 9:32 pm CLINICAL HISTORY: Chest pain. PE COMPARISON: Chest For Pe Angio dated 01/02/2021 TECHNIQUE: CT angiogram of the pulmonary arteries was performed with MIP. All CT scans are performed using dose optimization technique as appropriate and may include automated exposure control or mA/KV adjustment according to patient size. FINDINGS: No evidence of pulmonary thromboembolism. No acute aortic finding demonstrated. Moderate airspace opacity is seen in the left lung base. Moderate airspace opacity also seen medial r ight lung base and inferior right middle lobe. Small left pleural effusion. Fluid distention of the esophagus is present. No concerning bony finding. IMPRESSION: No evidence of pulmonary thromboembolism. Fluid distention of the esophagus noted. Moderate airspace infiltrates bilaterally, greater on the left, likely related to pneumonia. Small le ft pleural effusion.
--- NOTE | 2022-03-02 21:57 | RAD REPORT ---
EXAM DESCRIPTION: CTAbdomen Pelvis W Contrast - 03/02/2022 9:32 pm CLINICAL HISTORY: Abdominal pain. Intra-abdominal abscess COMPARISON: Abdomen Pelvis W Contrast dated 11/28/2021; Abdomen Pelvis W Contrast dated 04/10/2020 ; Mri Abdomen W/Wo Cont dated 11/10/2021 TECHNIQUE: Biphasic CT imaging of the abdomen and pelvis was performed with 100 ml non-ionic IV cont rast. All CT scans are performed using dose optimization technique as appropriate and may include automated exposure control or mA/KV adjustment according to patient size. FINDINGS: Airspace opacities in both lung bases, greater on the left likely infection/ pneumonia.Sma ll left pleural effusion. 25 mm mass projecting from the neck of the pancreas presumably related to neoplasia. 4.2 cm rim enhan cing mass along the right lobe of the liver also seen, neoplasia the diagnosis of concern. Multiple small bowel loops appears thickened throughout the central abdomen. No free air is present. The appendix is normal. No evidence of significant lymphadenopathy. Prostate gland projects into the bladder base. No suspicious bony findings. IMPRESSION: Thickened and mildly dilated small bowel loops in the central abdomen may be related to infectious or inflammatory enteritis. 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 Peripherall y enhancing liver lesion also noted, also suspicious for neoplasia. Bibasilar lung opacities most compatible with infiltrate/pneumonia.
[2022-03-02 22:43] LABS: SARS-CoV-2 Antigen Rapid Res Negative (Negative)
[2022-03-02] MEDS ORDERED: ALBUTEROL 2.5 MG/3 ML NEB SOL NEB PRN (22:52)
[2022-03-02] MEDS ORDERED: IPRATROPIUM BROM 0.5MG/2.5ML NEB PRN (22:52)
[2022-03-02] MEDS ORDERED: ACETAMINOPHEN 500 MG TAB PO PRN (22:52)
[2022-03-02] MEDS ORDERED: AZITHROMYCIN 250 MG TAB ONE (23:27)
[2022-03-02] MEDS ORDERED: NA CHLORIDE 0.9% 100 ML IV ONE (23:28)
[2022-03-02] MEDS ORDERED: CEFTRIAXONE 1000 MG/VIAL ONE (23:28)
--- NOTE | 2022-03-02 23:39 | ER ---
Nurse's Notes [facility] Name: Tiffanie Alvarez Age: 77 yrs Sex: Male : 1945 Arrival Date: 03/02/2022 Time: 19:37 Bed 18 Private MD: Diagnosis: Acute respiratory failure;Unspecified bacterial pneumonia Presentation: 03/02 19:39 Chief complaint: EMS states: patient has been having nausea, vomiting, and diarrhea ha1 since the past two days. he reports feeling really weak. at our arrival his oxygen saturation was at 84 and we put him in nasal canula \T\ 6L. oxygen sat. increased to 91. Coronavirus screen: Vaccine status: Patient reports being unvaccinated. Ebola Screen: No symptoms or risks identified at this time. Initial Sepsis Screen: Does the patient meet any 2 criteria? No. Patient's initial sepsis screen is negative. Does the patient have a suspected source of infection? No. Patient's initial sepsis screen is negative. Risk Assessment: Do you want to hurt yourself or someone else? Patient reports no desire to harm self or others. Onset of symptoms was February 28, 2022. 19:39 Method Of Arrival: EMS: [facility] ha1 19:39 Acuity: ANDREEA 3 ha1 Triage Assessment: 19:45 General: Appears comfortable, Behavior is calm, cooperative. Pain: Denies pain. EENT: ha1 Reports blindness. 19:45 Neuro: Level of Consciousness is awake, alert, obeys commands, Oriented to person, ha1 place, time, situation, Speech is normal. Cardiovascular: Patient's skin is warm and dry. Rhythm is sinus rhythm. Respiratory: Airway is patent Trachea midline Respiratory effort is even, unlabored, Respiratory pattern is regular, symmetrical, Breath sounds are clear bilaterally. GI: Abdomen is flat, non-distended, Bowel sounds present X 4 quads. Reports vomiting and diarrhea in the past two days. : No signs and/or symptoms were reported regarding the genitourinary system. Musculoskeletal: Circulation, motion, and sensation intact. Historical: - Allergies: 19:45 No Known Allergies; ha1 - PMHx: 19:45 BLINDNESS; CVA; Diabetes - NIDDM; Hypertension; Hypothyroidism; ha1 - Immunization history:: Adult Immunizations up to date, Adult Immunizations up to date. - Social history:: Smoking status: Patient denies any tobacco usage or history of. Screenin:52 Abuse screen: Denies threats or abuse. Denies injuries from another. Nutritional ha1 screening: No deficits noted. Tuberculosis screening: No symptoms or risk factors identified. Fall Risk Secondary diagnosis (15 points) blindness. IV access (20 points). Total Junior Fall Scale indicates Low Risk Score (25-44 pts). Fall prevention measures have been instituted. Side Rails Up X 2 Placed close to Nursing Station Frequent Obs/Assesments occuring Family Present and informed to notify staff if they need to leave bedside As available Patient and Family Educated on Fall Prevention Program and strategies. Assessment: 19:52 General: see triage. ha1 20:52 Reassessment: Patient and/or family updated on plan of care and expected duration. Pain ha1 level reassessed. Patient is alert, oriented x 3, equal unlabored respirations, skin warm/dry/pink. 21:52 Reassessment: Patient and/or family updated on plan of care and expected duration. Pain ha1 level reassessed. Patient is alert, oriented x 3, equal unlabored respirations, skin warm/dry/pink. at bedside. 22:50 Reassessment: Patient and/or family updated on plan of care and expected duration. Pain ha1 level reassessed. Patient is alert, oriented x 3, equal unlabored respirations, skin warm/dry/pink. 23:50 Reassessment: Patient and/or family updated on plan of care and expected duration. Pain ha1 level reassessed. Patient is alert, oriented x 3, equal unlabored respirations, skin warm/dry/pink. updated him in the plan of care. being admitted. Vital Signs: 19:39 BP 157 / 77; Pulse 86; Resp 20 S; Temp 98.2(O); Pulse Ox 94% on 6 lpm NC; Weight 79.38 ha1 kg; Height 5 ft. 10 in. (177.80 cm); Pain 0/10; 21:40 BP 174 / 72; Pulse 90; Resp 20 S; Pulse Ox 100% on 6 lpm NC; ha1 23:49 BP 168 / 73; Pulse 92; Resp 18 S; Pulse Ox 98% on 6 lpm NC; ha1 19:39 Body Mass Index 25.11 (79.38 kg, 177.80 cm) ha1 ED Course: 19:37 Patient arrived in ED. bb 19:39 Nataly Renee, RN is Primary Nurse. ha1 19:45 Triage completed. ha1 19:45 Arm band placed on right wrist. ha1 19:53 Patient has correct armband on for positive identification. Placed in gown. Bed in low ha1 position. Call light in reach. Side rails up X 1. Adult w/ patient. 20:02 Tod Funes MD is Attending Physician. bs3 20:46 Lipase Sent. ha1 20:46 Comprehensive Metabolic Panel Sent. ha1 20:46 CBC with Diff Sent. ha1 21:34 CT Chest Angio In Process Unspecified. EDMS 21:34 CT Abd/Pelvis - IV Contrast Only In Process Unspecified. EDMS 23:37 Dorian Verde MD is Hospitalizing Provider. bs3 Administered Medications: 20:40 Drug: NS 0.9% 1000 ml Route: IV; Rate: 75 ml/hr; Site: right hand; ha1 03/03 00:05 Follow up: Response: No adverse reaction; IV Status: Completed infusion; IV Intake: ha1 1000ml 03/02 21:03 Drug: Ondansetron 4 mg Route: IVP; Site: right hand; ha1 21:50 Follow up: Response: No adverse reaction ha1 23:30 Drug: Rocephin (cefTRIAXone) 1 grams Route: IV; Rate: bolus; Site: right hand; ha1 03/03 00:13 Follow up: Response: No adverse reaction; IV Status: Completed infusion; IV Intake: ha1 100ml 03/02 23:38 Drug: AZITHromycin 1 grams Route: PO; ha1 03/03 00:13 Follow up: Response: No adverse reaction ha1 Intake: 00:05 IV: 1000ml; Total: 1000ml. ha1 00:13 IV: 100ml; Total: 1100ml. ha1 Outcome: 03/02 23:37 Decision to Hospitalize by Provider. bs3 03/03 01:21 Patient left the ED. bb Signatures: Dispatcher [employer] EDMS Tina Michaud RN RN bb Ayala, Heidy, ZOHAIB PENNY ha1 Tod Funes MD MD bs3 Corrections: (The following items were deleted from the chart) 00:15 11/03 21:52 Reassessment: Patient and/or family updated on plan of care and expected ha1 duration. Pain level reassessed. Patient is alert, oriented x 3, equal unlabored respirations, skin warm/dry/pink. ha1
--- NOTE | 2022-03-02 23:39 | EDPHYS ---
Physician Documentation [facility] Name: Tiffanie Alvarez Age: 77 yrs Sex: Male : 1945 Arrival Date: 03/02/2022 Time: 19:37 Bed 18 Private MD: ED Physician Tod Funes HPI: 03/02 20:31 This 77 yrs old Male presents to ER via EMS with complaints of Weakness. 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 Yeyo Wells presents with abd pain, nausea, vomiting and diarrhea. Started with nb diarrhea this am and had dec oral intake at lunch then 4-5 episodes of vomiting and weakness. NO cp or sob. No hx of dvt/pe. Historical: - Allergies: 19:45 No Known Allergies; ha1 - PMHx: 19:45 BLINDNESS; CVA; Diabetes - NIDDM; Hypertension; Hypothyroidism; ha1 - Immunization history:: Adult Immunizations up to date, Adult Immunizations up to date. - Social history:: Smoking status: Patient denies any tobacco usage or history of. ROS: 20:31 Constitutional: weak, tired Eyes: Negative for injury, pain, redness, and discharge, bs3 ENT: Negative for injury, pain, and discharge, Neck: Negative for injury, pain, and swelling, Cardiovascular: Negative for chest pain, palpitations, and edema, Respiratory: Negative for shortness of breath, cough, wheezing MS/Extremity: Negative for injury and deformity, Skin: Negative for injury, rash, and discoloration, Neuro: Negative for headache, weakness, numbness, tingling, and seizure, Psych: Negative for depression, anxiety, suicide ideation, homicidal ideation, and hallucinations. Exam: 20:31 Constitutional: This is a well developed, well nourished patient who is awake, alert, bs3 and in no acute distress. Head/Face: Normocephalic, atraumatic. Eyes: Pupils equal round and reactive to light, extra-ocular motions intact. Lids and lashes normal. ENT: mmm, no posterior phyarngeal erythema Neck: Trachea midline, no thyromegaly, no neck stiffness Chest/axilla: Normal chest wall appearance and motion. Nontender with no deformity. No lesions are appreciated. Cardiovascular: Regular rate and rhythm with a normal S1 and S2. symmetric pulses in upper extremities Respiratory: Lungs have equal breath sounds bilaterally, clear to auscultation, no respiratory distress Abdomen/GI: distended, mild diffuse tenderness to palpation Skin: Warm, dry with normal turgor. Normal color with no rashes, no lesions, and no evidence of cellulitis. MS/ Extremity: Pulses equal, no cyanosis. Neurovascular intact. Full, normal range of motion. Neuro: Awake and alert, GCS 15, oriented to person, place, time, and situation. Cranial nerves II-XII grossly intact. Motor strength 5/5 in all extremities. Sensory grossly intact. Vital Signs: 19:39 BP 157 / 77; Pulse 86; Resp 20 S; Temp 98.2(O); Pulse Ox 94% on 6 lpm NC; Weight 79.38 ha1 kg; Height 5 ft. 10 in. (177.80 cm); Pain 0/10; 21:40 BP 174 / 72; Pulse 90; Resp 20 S; Pulse Ox 100% on 6 lpm NC; ha1 23:49 BP 168 / 73; Pulse 92; Resp 18 S; Pulse Ox 98% on 6 lpm NC; ha1 19:39 Body Mass Index 25.11 (79.38 kg, 177.80 cm) ha1 MDM: 20:02 Patient medically screened. bs3 20:31 Data reviewed: vital signs, nurses notes. ED course: possible obstruction, bs3 gastroenteritis, pancreatitis, pt found to be hypoxic as well with possible hcc, will r/o PE, will place on o2, will check labs, hydrate, give antiemetic and reassess. 22:47 ED course: pt found to have pna, will give ceftriaxone and azithromycin, will admit, bs3 given new o2 requirement. . 03/03 00:58 ED course: ecg sinus [address] elevation or depression qtc prolonged 670. bs3 03/02 20:19 Order name: CBC with Diff; Complete Time: 21:15 bs3 03/02 20:19 Order name: Comprehensive Metabolic Panel; Complete Time: 21:15 bs3 03/02 20:19 Order name: Lipase; Complete Time: 21:15 bs3 03/02 20:27 Order name: SARS RAPID bs3 03/02 20:51 Order name: CBC Smear Scan; Complete Time: 21:15 EDMS 03/02 22:57 Order name: Basic Metabolic Panel EDMS 03/02 20:19 Order name: CT Chest Angio; Complete Time: 22:33 bs3 03/02 20:19 Order name: CT Abd/Pelvis - IV Contrast Only; Complete Time: 22:33 bs3 03/02 22:57 Order name: Basic Metabolic Panel EDMS 03/02 22:57 Order name: CBC with Automated Diff EDMS 03/02 22:57 Order name: CBC with Automated Diff EDMS 03/02 22:57 Order name: NT PRO-BNP EDMS 03/02 22:57 Order name: NT PRO-BNP EDMS 03/02 20:19 Order name: EKG - Nurse/Tech; Complete Time: 22:21 bs3 03/02 22:57 Order name: 60g Consistent Carbohydrate (ADA ) EDMS Administered Medications: 03/02 20:40 Drug: NS 0.9% 1000 ml Route: IV; Rate: 75 ml/hr; Site: right hand; [facility] 03/03 00:05 Follow up: Response: No adverse reaction; IV Status: Completed infusion; IV Intake: ha1 1000ml 03/02 21:03 Drug: Ondansetron 4 mg Route: IVP; Site: right hand; [facility] 21:50 Follow up: Response: No adverse reaction [facility] 23:30 Drug: Rocephin (cefTRIAXone) 1 grams Route: IV; Rate: bolus; Site: right hand; [facility] 03/03 00:13 Follow up: Response: No adverse reaction; IV Status: Completed infusion; IV Intake: ha1 100ml 03/02 23:38 Drug: AZITHromycin 1 grams Route: PO; [facility] 03/03 00:13 Follow up: Response: No adverse reaction ha1 Disposition Summary: 03/02/22 23:37 Hospitalization Ordered Hospitalization Status: Inpatient Admission bs3 Provider: Dorian Verde bs3 Location: Telemetry/MedSurg (Inpatient) bs3 Condition: Fair bs3 Problem: new bs3 Symptoms: have worsened bs3 Bed/Room Type: Standard bs3 Room Assignment: 404(03/02/22 23:55) mw Diagnosis - Acute respiratory failure bs3 - Unspecified bacterial pneumonia bs3 Forms: - Medication Reconciliation Form bs3 - SBAR form bs3 Signatures: Dispatcher [employer] Seble Whitney RN RN Nataly Renee RN RN ha1 Tod Funes MD MD bs3 Corrections: (The following items were deleted from the chart) 03/02 23:55 23:37 bs3 aguilar
[2022-03-03 01:49] VITALS: BMI 25.1
[2022-03-03 03:59] LABS: Absolute Lymphocytes (CBC) 1.1 K/uL (0.7-4.9); Hematocrit 42.2 % (39.6-49.0); Lymphocytes % 10.1 % (15.3-44.8); MCV 95.8 fL (80-100); MPV 9.6 fL (7.6-11.3); RBC Red Blood Cell Count 4.41 M/uL (4.33-5.43)
[2022-03-03] MEDS: CEFTRIAXONE 1,000 MG in NA CHLORIDE 0.9% 50 ML IVPB SCH ×2 (08:37→22:00)
[2022-03-03] MEDS: AZITHROMYCIN IV 250 MG in NA CHLORIDE 0.9% 250 ML IVPB SCH (09:04)
[2022-03-03] MEDS ORDERED: POLYETHYL GLY 3350 17 GM/DOSE PO PRN (12:17)
[2022-03-03] MEDS ORDERED: BRIMONIDINE TARTRATE 0.15% 5 ML EACH EYE SCH (12:30)
--- NOTE | 2022-03-03 14:58 | P.HP ---
Certification for Inpatient Patient admitted to: Inpatient With expected LOS: >2 Midnights Practitioner: I am a practitioner with admitting privileges, knowledge of patient current condition, hospital course, and medical plan of care. Services: Services provided to patient in accordance with Admission requirements found in Title 42 Section 412.3 of the Code of Federal Regulations Patient History Date of Service: 03/03/22 Reason for admission: WEAK, DIARRHEA History of Present Illness: MR. MARIANO COMES IN WITH WEAKNESS AND DIARRHEA. HE IS BLIND AND IS TAKEN CARE BY WHO IS ALSO EXHAUSTED. HE HAS NO COUGH, OR DYEPNEA. HE HAS BILATERAL BASIALR PNEUMONIA ON CT SCAN HAS OLD LIVER AND PANCREATIC MASS ONE EACH THAT IS TO BE FOLLOWED BY [facility]. THEY ARE WAITING FOR APT WITH THE [facility]Y [facility]ES THE WHOLE [facility] WAS DISRUPTED. Allergies No Known Allergies Allergy (Verified 11/25/15 08:55) Home medications list reviewed: Yes Home Medications: Cholecalciferol (Vitamin D3) [Vitamin D3] 1 tab PO DAILY 04/10/20 Clopidogrel Bisulfate [Plavix*] [place] [address]/10/20 Dorzolamide HCl [Trusopt] 1 drop EACH EYE BID 04/10/20 Finasteride [Proscar*] 5 mg PO 1700 04/10/20 Glimepiride 1 mg PO 0800 04/10/20 L.acidoph,Paracasei, B.lactis [Probiotic] [place] [address]/10/20 Latanoprost/Pf [Latanoprost 0.005% Eye Drop] 1 drop EACH EYE BEDTIME 04/10/20 Levothyroxine Sodium [Levothyroxine] [place] [address]/10/20 Mirabegron [Myrbetriq] 25 mg PO DAILY 90 Days #90 tab.er.24h 04/11/20 Tamsulosin [Flomax*] 0.4 mg PO DAILY 90 Days #90 cap 04/11/20 Atorvastatin Calcium [Lipitor] 20 mg PO BEDTIME 03/03/22 Brimonidine [Alphagan P 0.15%*] 2 drops EACH EYE ONCE 03/03/22 Brimonidine/Brinzolamid 1 drops EACH EYE BID 03/03/22 Latanoprost 1 drops EACH EYE BEDTIME 03/03/22 Latanoprost 125 mcg EACH EYE BEDTIME 03/03/22 Netarsudil` 1 drops EACH EYE BEDTIME 03/03/22 Polyethylene Glycol 3350 [Miralax] 17 gm PO PRN PRN 03/03/22 - Past Medical/Surgical History Has patient received pneumonia vaccine in the past: No Diabetic: Yes -: HTN -: DIABETES- NIDDM -: DIABETES WITH CAD, STENT AND PVD -: 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 STABLE. -: COVID PNEUMONIA RESOLVED. -: CATARACT SX TO RIGHT EYE- March -: Right 5th toe amputation - Family History Mother -: Hypertension, Diabetes - Social History Smoking Status: Never smoker Alcohol use: No CD- Drugs: No Caffeine use: Yes Place of Residence: Home Review of Systems 10-point ROS is otherwise unremarkable General: Weakness Physical Examination - Vital Signs Temperature: 97.7 F Blood Pressure: 123/67 Pulse: 62 Respirations: 18 Pulse Ox (%): 91 - Physical Exam General: Oriented x3, Mild distress, Other (TOTALLY BLIND ) HEENT: Atraumatic, PERRLA, Mucous membr. moist/pink, EOMI, Sclerae nonicteric Neck: Supple, 2+ carotid pulse no bruit, No LAD, Without JVD or thyroid abnormality Respiratory: Clear to auscultation bilaterally, Normal air movement Cardiovascular: Regular rate/rhythm, Normal S1 S2 Gastrointestinal: Normal bowel sounds, No tenderness Musculoskeletal: No tenderness Integumentary: No rashes Neurological: Normal gait, Normal speech, Normal strength at 5/5 x4 extr, Normal tone, Normal affect Lymphatics: No axilla or inguinal lymphadenopathy - Studies Laboratory Data (last 24 hrs) 03/02/22 20:37: Sodium 138, Potassium 3.9, BUN 31 H, Creatinine 1.45 H, Glucose 234 H, Total Bilirubin 0.7, AST 21, ALT 30, Alkaline Phosphatase 66, Lipase 139 03/02/22 20:37: WBC 7.40, Hgb 16.0, Hct 47.5, Plt Count 157 Assessment and Plan - Problems (Diagnosis) (1) Atypical pneumonia Current Visit: Yes Status: Acute Plan: CHANGE ABX TO LEVAQUIN IV USUALLY ROCEPHIN AND ZITHROMAX DO NOT WORK IN MY EXPERIENCE. (2) Diarrhea Current Visit: Yes Status: Acute Plan: CHECK C DIFF MOST LIKELY VIRAL. Qualifiers: Diarrhea type: presumed infectious Qualified Code(s): R19.7 - Diarrhea, unspecified (3) General weakness Current Visit: Yes Status: Acute Plan: DEHYDRATION. HE IS DEBILITATED BLIND GM WHO DOES NOT WANT ANYTHING DONE BUT ON 'S INSISTENCE HE GOES TO [facility] FOLLOWING. (4) Liver mass Current Visit: Yes Status: Chronic Plan: 4.5 CM. MOST LIKELY MALIGNANT. HE HAS SEEN DR. 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 I AM NOT SURE THAT IS THE RIGHT DIRECTION FOR HIM WITH POOR GENERAL CONDITION. (5) Pancreatic mass Current Visit: Yes Status: Chronic Plan: THIS IS ABOUT 2.5 CM. HE HAS BEEN TO DR. WARE AND ASKED NOT TO WORRY ABOUT. I SUSPECT THIS CAN BECANCER ALSO BUT AGAIN PATIENT DOES NOT WANT ANYTHING DONE. - Advance Directives Does patient have a Living Will: No Does patient have a Durable POA for Healthcare: Yes
[2022-03-03] MEDS: FINASTERIDE 5 MG TAB PO SCH (17:48)
[2022-03-03] MEDS ORDERED: BRIMONIDINE TARTRATE 0.15% OPTH SCH (19:00)
[2022-03-03] MEDS ORDERED: LATANOPROST OPTHALMIC EACH EYE SCH ×2 (21:00)
[2022-03-03] MEDS: DORZOLAMIDE 2% OPTH (10 ML) EACH EYE SCH (21:00)
[2022-03-03] MEDS: ATORVASTATIN 20 MG TAB PO SCH (21:56)
[2022-03-03] MEDS: HOME MED 1 EA UNK (Latanoprost/Pf [Latanoprost 0.005% Eye Drop] 7.5 ML Drops) OPTH SCH (21:59)
[2022-03-03] MEDS: BRINZOLAMIDE OPTH SCH (21:59)
[2022-03-03] MEDS: BRIMONIDINE OPTH SCH (21:59)
[2022-03-03] MEDS: [UNRECOGNIZED DRUG - OTHER] OPTH SCH (22:03)
[2022-03-04] MEDS: LACTOBACILLUS/ACIDOPHILUS TAB PO SCH (05:51)
[2022-03-04] MEDS: CLOPIDOGREL 75 MG TABLET PO SCH (05:51)
[2022-03-04] MEDS: LEVOTHYROXINE SOD 0.075 MG TAB PO SCH (05:51)
[2022-03-04] MEDS ORDERED: HOME MED 1 EA UNK (Levothyroxine Sodium [Levothyroxine] 25 MCG Capsule) PO SCH (06:30)
[2022-03-04] MEDS: CEFTRIAXONE 1,000 MG in NA CHLORIDE 0.9% 50 ML IVPB SCH ×2 (08:06→21:51)
[2022-03-04] MEDS: VITAMIN D 5,000 UNIT CAP PO SCH (09:00)
[2022-03-04] MEDS: AZITHROMYCIN IV 250 MG in NA CHLORIDE 0.9% 250 ML IVPB SCH (09:35)
[2022-03-04] MEDS: TAMSULOSIN 0.4 MG SR CAP PO SCH (09:36)
[2022-03-04] MEDS: GLIMEPIRIDE 2 MG TABLET PO SCH (09:36)
[2022-03-04] MEDS: HOME MED 1 EA UNK (Mirabegron [Myrbetriq] 25 MG Tab.Er.24h) PO SCH (09:37)
[2022-03-04] MEDS: BRINZOLAMIDE OPTH SCH ×2 (09:38→21:56)
[2022-03-04] MEDS: BRIMONIDINE OPTH SCH ×2 (09:38→21:56)
[2022-03-04 14:57] LABS: Urine Bacteria <20 /HPF (<20); Urine RBC <5 /HPF (None Seen)
[2022-03-04 15:00] LABS: Specific Gravity 1.012 (1.005-1.030); Urine Bilirubin NEGATIVE (Negative); Urine Blood Negative (Negative); Urine Clarity Clear (Clear); Urine Color Light-Yellow (Yellow); Urine Glucose NEGATIVE (Negative); Urine Protein NEGATIVE (Negative); Urine Urobilinogen Normal (Normal)
[2022-03-04] MEDS ORDERED: PNEUMOCOCCAL VACCINE 0.5 ML IMVAC ONE (15:00)
[2022-03-04] MEDS: FINASTERIDE 5 MG TAB PO SCH (16:47)
[2022-03-04] MEDS: ATORVASTATIN 20 MG TAB PO SCH (21:00)
[2022-03-04] MEDS: DORZOLAMIDE 2% OPTH (10 ML) EACH EYE SCH (21:00)
[2022-03-04] MEDS: [UNRECOGNIZED DRUG - OTHER] OPTH SCH (21:56)
[2022-03-04] MEDS: HOME MED 1 EA UNK (Latanoprost/Pf [Latanoprost 0.005% Eye Drop] 7.5 ML Drops) OPTH SCH (21:56)
[2022-03-05] MEDS: LEVOTHYROXINE SOD 0.075 MG TAB PO SCH (06:48)
[2022-03-05] MEDS: CLOPIDOGREL 75 MG TABLET PO SCH (06:48)
[2022-03-05] MEDS: LACTOBACILLUS/ACIDOPHILUS TAB PO SCH (07:19)
[2022-03-05] MEDS: CEFTRIAXONE 1,000 MG in NA CHLORIDE 0.9% 50 ML IVPB SCH ×2 (08:00→21:23)
[2022-03-05] MEDS: AZITHROMYCIN IV 250 MG in NA CHLORIDE 0.9% 250 ML IVPB SCH (08:33)
[2022-03-05] MEDS: DORZOLAMIDE 2% OPTH (10 ML) EACH EYE SCH ×2 (09:00→21:00)
[2022-03-05] MEDS: GLIMEPIRIDE 2 MG TABLET PO SCH (10:10)
[2022-03-05] MEDS: HOME MED 1 EA UNK (Mirabegron [Myrbetriq] 25 MG Tab.Er.24h) PO SCH (10:11)
[2022-03-05] MEDS: BRINZOLAMIDE OPTH SCH ×2 (10:11→21:24)
[2022-03-05] MEDS: VITAMIN D 5,000 UNIT CAP PO SCH (10:11)
[2022-03-05] MEDS: BRIMONIDINE OPTH SCH ×2 (10:11→21:24)
[2022-03-05] MEDS: FINASTERIDE 5 MG TAB PO SCH (16:47)
[2022-03-05] MEDS ORDERED: CEFTRIAXONE 1000 MG/VIAL ONE (20:19)
[2022-03-05] MEDS ORDERED: NA CHLORIDE 0.9% 50 ML ONE (20:32)
[2022-03-05] MEDS: ATORVASTATIN 20 MG TAB PO SCH (21:24)
[2022-03-05] MEDS: [UNRECOGNIZED DRUG - OTHER] OPTH SCH (21:24)
[2022-03-05] MEDS: HOME MED 1 EA UNK (Latanoprost/Pf [Latanoprost 0.005% Eye Drop] 7.5 ML Drops) OPTH SCH (21:24)
--- NOTE | 2022-03-06 00:44 | PN ---
Subjective: Mr. Alvarez is doing great. He is able to walk around little bit further. He is legally blind. He is totally dependent on his . Objective: Chest: Clear. Heart: Regular. Abdomen: No guarding, no rebound, no rigidity. Vital Signs: Blood pressure is 135/72, pulse is 62. Assessment/plan: 1.Bilateral pneumonia without any pneumonic symptoms. Continue antibiotics, Levaquin. 2.Liver mass and pancreatic masses are followed by Dr. Wells, in [place], who I have referred him to for hepatology and he has also been to Dr. Mio Lao for his pancreatic mass, which is about 2. [address] Lao is not worried about the mass looking at his general condition, which is poor als oCathleen PARDO/MONALISA Voice ID: [id number] Report ID: [id number]
[2022-03-06 05:56] LABS: Absolute Lymphocytes (CBC) 1.7 K/uL (0.7-4.9); Hematocrit 38.3 % (39.6-49.0); Lymphocytes % 20.3 % (15.3-44.8); MCV 94.5 fL (80-100); MPV 8.7 fL (7.6-11.3); RBC Red Blood Cell Count 4.06 M/uL (4.33-5.43)
[2022-03-06 06:12] LABS: Potassium 3.7 mmol/L (3.5-5.1)
[2022-03-06] MEDS: LEVOTHYROXINE SOD 0.075 MG TAB PO SCH (06:15)
[2022-03-06] MEDS: LACTOBACILLUS/ACIDOPHILUS TAB PO SCH (06:15)
[2022-03-06] MEDS: CLOPIDOGREL 75 MG TABLET PO SCH (06:15)
[2022-03-06] MEDS ORDERED: cloNIDine HCL 0.1 MG TAB PO ONE (06:32)
[2022-03-06] MEDS: CEFTRIAXONE 1,000 MG in NA CHLORIDE 0.9% 50 ML IVPB SCH (08:41)
[2022-03-06] MEDS: TAMSULOSIN 0.4 MG SR CAP PO SCH (08:45)
[2022-03-06] MEDS: VITAMIN D 5,000 UNIT CAP PO SCH (08:45)
[2022-03-06] MEDS: GLIMEPIRIDE 2 MG TABLET PO SCH (08:45)
[2022-03-06] MEDS: DORZOLAMIDE 2% OPTH (10 ML) EACH EYE SCH (08:47)
[2022-03-06] MEDS: BRIMONIDINE OPTH SCH (08:48)
[2022-03-06] MEDS: BRINZOLAMIDE OPTH SCH (08:48)
[2022-03-06] MEDS: HOME MED 1 EA UNK (Mirabegron [Myrbetriq] 25 MG Tab.Er.24h) PO SCH (08:48)
[2022-03-06] MEDS ORDERED: IPRATROPIUM BROM 0.5MG/2.5ML NEB PRN (09:00)
[2022-03-06] MEDS ORDERED: ALBUTEROL 2.5 MG/3 ML NEB SOL NEB PRN (09:00)
[2022-03-06] MEDS: AZITHROMYCIN IV 250 MG in NA CHLORIDE 0.9% 250 ML IVPB SCH (09:30)
[2022-03-06 09:36] VITALS: BP 191/91; TEMP 99.6
[2022-03-06 10:09] VITALS: O2SAT 95
--- NOTE | 2022-03-06 12:18 | EKG ---
Test Date: 2022-03-02 Test Time: 22:12:45 Distribution Technician: CALI MEASUREMENT RESULTS: Intervals: Rate: 95 SD: QRSD: 92 QT: 534 QTc: 671 [place]: P: SD: QRS: 49 T: 52 INTERPRETIVE STATEMENTS: Normal sinus rhythm Left axis deviation Left ventricular hypertrophy Nonspecific T wave abnormality Borderline Prolonged QT, may be secondary to QRS abnormality Compared to ECG 01/01/2021 07:25:29 Accelerated junctional rhythm now present Left-axis deviation now present Left ventricular hypertrophy now present T-wave abnormality now present First degree AV block no longer present Electronically Signed On 03-06-22 12:14:04 PHOTOENGRAVING ETCHER by Garrett Robin
--- NOTE | 2022-03-06 13:18 | P.DS ---
Admission Date: 03/02/22 Discharge Date: 03/06/22 Disposition: ROUTINE DISCHARGE Reason for Admission: WEAK, DIARRHEA - Problems (1) Atypical pneumonia Status: Acute (2) Diarrhea Status: Acute Qualifiers: Diarrhea type: presumed infectious Qualified Code(s): R19.7 - Diarrhea, unspecified (3) General weakness Status: Acute (4) Liver mass Status: Chronic (5) Pancreatic mass Status: Chronic Brief History of Present Illness: MR. MARIANO COMES IN WITH WEAKNESS AND DIARRHEA. HE IS BLIND AND IS TAKEN CARE BY WHO IS ALSO EXHAUSTED. HE HAS NO COUGH, OR DYEPNEA. HE HAS BILATERAL BASIALR PNEUMONIA ON CT SCAN HAS OLD LIVER AND PANCREATIC MASS ONE EACH THAT IS TO BE FOLLOWED BY [facility]. THEY ARE WAITING FOR APT WITH THE [facility]Y J[facility]ES THE WHOLE [facility] SYSTEM WAS DISRUPTED. Hospital Course: MR MARIANO HAS WEAKNESS AND WAS FOUND TO HAD BACTERIAL PNEUMONIA. HE IS BETTER ON LEVAQUIN. HE IS STABLE GO HOME. HE HAS BEEN AMBULATING WITH ASSISTANCE. Vital Signs/Physical Exam: Temp Pulse Resp BP Pulse Ox 99.6 F 73 14 191/91 H 91 03/06/22 08:00 03/06/22 08:00 03/06/22 08:00 03/06/22 08:00 03/06/22 08:00 Laboratory Data at Discharge: WBC 8.50 K/uL (4.3-10.9) 03/06/22 05:18 Hgb 13.2 g/dL (13.6-17.9) L 03/06/22 05:18 Hct 38.3 % (39.6-49.0) L 03/06/22 05:18 Plt Count 150 K/uL (152-406) L 03/06/22 05:18 Sodium 138 mmol/L (136-145) 03/06/22 05:18 Potassium 3.7 mmol/L (3.5-5.1) 03/06/22 05:18 BUN 25 mg/dL (7-18) H 03/06/22 05:18 Creatinine 1.07 mg/dL (0.55-1.3) 03/06/22 05:18 Glucose 131 mg/dL (74-106) H 03/06/22 05:18 Total Bilirubin 0.7 mg/dL (0.2-1.0) 03/02/22 20:37 AST 21 U/L (15-37) 03/02/22 20:37 ALT 30 U/L (12-78) 03/02/22 20:37 Alkaline Phosphatase 66 U/L (45-117) 03/02/22 20:37 Lipase 139 U/L (73-393) 03/02/22 20:37 Home Medications: Cholecalciferol (Vitamin D3) [Vitamin D3] 1 tab PO DAILY 04/10/20 Clopidogrel Bisulfate [Plavix*] 75 mg PO 0630 04/10/20 Dorzolamide HCl [Trusopt] 1 drop EACH EYE BID 04/10/20 Finasteride [Proscar*] 5 mg PO 1700 04/10/20 Glimepiride 1 mg PO 0800 04/10/20 L.acidoph,Paracasei, B.lactis [Probiotic] 1 cap PO 0630 04/10/20 Latanoprost/Pf [Latanoprost 0.005% Eye Drop] 1 drop EACH EYE BEDTIME 04/10/20 Levothyroxine Sodium [Levothyroxine] 75 mcg PO 0630 04/10/20 Mirabegron [Myrbetriq] 25 mg PO DAILY 90 Days #90 tab.er.24h 04/11/20 Tamsulosin [Flomax*] 0.4 mg PO DAILY 90 Days #90 cap 04/11/20 Atorvastatin Calcium [Lipitor] 20 mg PO BEDTIME 03/03/22 Brimonidine [Alphagan P 0.15%*] 2 drops EACH EYE ONCE 03/03/22 Brimonidine/Brinzolamid 1 drops EACH EYE BID 03/03/22 Latanoprost 1 drops EACH EYE BEDTIME 03/03/22 Latanoprost 125 mcg EACH EYE BEDTIME 03/03/22 Netarsudil` 1 drops EACH EYE BEDTIME 03/03/22 Polyethylene Glycol 3350 [Miralax] 17 gm PO PRN PRN 03/03/22 levoFLOXacin [Levaquin] 500 mg PO DAILY 10 Days #10 tab 03/06/22 New Medications: levoFLOXacin [Levaquin] 500 mg PO DAILY 10 Days #10 tab Physician Discharge Instructions: -DC IV and DC home -Follow-up with PCP in 1 to 2 weeks -Follow-up with Cardiology this week -Please call Dr. Gonzalez at [phone] if any questions regarding hospital stay -Please call nursing station at [phone] if any nursing or medication questions -Return to the emergency room if symptoms worsen Followup: Dorian Verde MD [Primary Care Provider] - 1 Week (call for an apointment )
== END 2022-03-06 11:27 | disposition home or self-care (01) | DRG 193 ==
LOC: ER 19:16 → ERHOLD 23:03 → 4TH 03-03 00:51
PROVIDERS: ADMIT Internal Medicine; ATTEND Internal Medicine
DX: J15.9 Unspecified bacterial pneumonia (principal); J96.01 Acute respiratory failure with hypoxia; E11.9 Type 2 diabetes mellitus without complications; I10 Essential (primary) hypertension; E03.9 Hypothyroidism, unspecified; I25.10 Atherosclerotic heart disease of native coronary artery without angina pectoris; K86.9 Disease of pancreas, unspecified; H54.8 Legal blindness, as defined in USA; R16.0 Hepatomegaly, not elsewhere classified; R19.7 Diarrhea, unspecified; Z95.5 Presence of coronary angioplasty implant and graft; Z79.02 Long term (current) use of antithrombotics/antiplatelets; Z86.16 Personal history of COVID-19; Z86.73 Personal history of transient ischemic attack (TIA), and cerebral infarction without residual deficits; Z79.84 Long term (current) use of oral hypoglycemic drugs; Z79.890 Hormone replacement therapy; Z79.899 Other long term (current) drug therapy; Z89.421 Acquired absence of other right toe(s); Z20.822 Contact with and (suspected) exposure to COVID-19
CPT/HCPCS: 36415; 71275; 74177; 80048; 80053; 81003; 82947; 83690; 83880; 85025; 87811; 93005; 94760; 96361; 96365; 96375; 97116; 97161; 97530; 99284; J0456; J2405; J7030; J7050; Q9967

== ENCOUNTER 2022-03-09 11:39 | Observation (INO) | payer OTHER ==
--- OUTSIDE RECORDS SUMMARY | 2022-03-09 11:45 | XMS REPORT | Continuity of Care Document ---
:1945 Author Organization [facility] t Address [address] [place] [address] Care Team Providers Name Role Phone MALIA MUNGUIA Primary Care Physician UnavailRenae Mendieta Attending Clinician [phone] Carina PENNY, Cynthia Andrew Attending Clinician Unavailable Yeyo Wells MD Attending Clinician Sarah Stock Attending Clinician , [facility] Room Attending Clinician Unavailable SARAH STOCK [...] Date Date Clinician NO KNOWN Allergy Active [facility] Family History Family Member Diagnosis Comments Start Date Stop Date Source Natural father Stroke [facility] Natural mother Diabetes [facility] Social History Social Habit Start Date Stop Date Quantity Comments Source History SDOH [facility] Alcohol Std Drinks Medica [facility] Center History SDOH [facility] Alcohol Binge Medical Melinda ter History SDMS [facility] Alcohol Comment Medical C enter Tobacco use and 2021-12-01 2021-12-[address] [facility] k[facility] exposure 00:00:00 00:00:00 [facility] Alcohol intake 2021-12-01 2021-12-[address] [facility] es 00:00:00 00:00:00 non-drinker Medical Cente r (finding) History SDOH 2021-12-01 2021-12-[address] [facility] Alcohol Frequency 00:00:00 00:00:00 [facility] Sex Assigned At [address] [facility] 00:00:00 00:00:00 [facility] Smoking Status Start Date Stop Date Source Tobacco smoking consumption unknown [facility] Never smoker [facility] Med ical Lottie Medications Ordered Filled Start Stop Current Ordering Indication Dosage Frequency Signature Comments Components Source Medication Medication Date Date Medication? Clinician (SIG) Name Name glimepiride Yes glimepirid [facility] (AMARYL) 1 04 e 2 mg [facility] MG tablet 11:06: tablet TK Med ical 00 1 T PO D Center WITH BREAKFAST. STOP PRANDIN brimonidine Yes [facility] (ALPHAGAN 12-01 [facility]ukes P) 0.1 % 11:06: Medical Drop 00 Lottie latanoprost Yes 1[drp] QD [address] (XALATAN) 804 nightly. [facility] 0.005 % 11:06: Medical ophthalmic 00 Lottie solution Lactobacill Yes 1{tbl} Q.5D Take [address] us 12-01 tablet by Tammie acidoph-L.b 11:06: mouth 2 Med ical ulgar 00 (two) Center (FLORANEX) times 1 million daily. cell Tab per tablet glucosamine Yes 1{tbl} Q.29933225 Take [address] -chondroiti 8- [id number] tablet by Tammie n 500-400 11:06: 3D mouth 3 Medic al mg tablet 00 (three) Center times daily. calcium Yes 1{tbl} QD Take [address] carbonate-v 12-01 tablet by Angie medina itamin D3 11:06: mouth Medical (OSCAL) 250 00 daily. Center mg-3.125 mcg (125 unit) Tab per tablet glimepiride Yes glimepirid [facility] (AMARYL) 1 8-04 e 2 mg [facility]ukes MG tablet 11:06: tablet TK Med ical 00 1 T PO D Center WITH BREAKFAST. STOP PRANDIN brimonidine Yes [facility] (ALPHAGAN 8-04 [facility]ukes P) 0.1 % 11:06: Medical Drop 00 Center latanoprost Yes 1[drp] QD [address] (XALATAN) 8-04 nightly. [facility] 0.005 % 11:06: Medical ophthalmic 00 Center solution Lactobacill Yes 1{tbl} Q.5D Take [address] us 8-04 tablet by Tammie acidoph-L.b 11:06: mouth 2 Med ical ulgar 00 (two) Center (FLORANEX) times 1 million daily. cell Tab per tablet glucosamine Yes 1{tbl} Q.78155643 Take [address] -chondroiti 12-01 [id number] tablet by Tammie n 500-400 11:06: 3D mouth 3 Medic al mg tablet 00 (three) Center times daily. calcium Yes 1{tbl} QD Take [address] carbonate-v 8- tablet by Angie es itamin D3 11:06: mouth Medical (OSCAL) 250 00 daily. Center mg-3.125 mcg (125 unit) Tab per tablet glimepiride Yes glimepirid [facility] (AMARYL) 1 804 e 2 mg [facility]ukes MG tablet 11:06: tablet TK Med ical 00 1 T PO D Center WITH BREAKFAST. STOP PRANDIN brimonidine Yes [facility] (ALPHAGAN 8-04 [facility]ukes P) 0.1 % 11:06: Medical Drop 00 Center latanoprost Yes 1[drp] QD [address] (XALATAN) 8-04 nightly. [facility]ukes 0.005 % 11:06: Medical ophthalmic 00 Center solution Lactobacill Yes 1{tbl} Q.5D Take [address] us 8-04 tablet by Lukes acidoph-L.b 11:06: mouth 2 Med ical ulgar 00 (two) Center (FLORANEX) times 1 million daily. cell Tab per tablet glucosamine Yes 1{tbl} Q.[id number] Take [address] -chondroiti 8- [id number] tablet by [facility]ukes n 500-400 11:06: 3D mouth 3 Medic al mg tablet 00 (three) Center times daily. calcium Yes 1{tbl} QD Take [address] carbonate-v 12-01 tablet by Angie es itamin D3 11:06: mouth Medical (OSCAL) 250 00 daily. Center mg-3.125 mcg (125 unit) Tab per tablet clopidogreL Yes 75mg QD Take [address] (PLAVIX) 75 804 by mouth Luke s mg tablet 11:05: daily. Medica l 59 Center levothyroxi Yes 75ug Take [address] ne 8-04 mcg by Lukes (SYNTHROID, 11:05: mouth Medic al LEVOTHROID) 59 Every Center 75 MCG morning on tablet an empty stomach. finasteride Yes 5mg QD Take [address] (PROSCAR) 5 04 by mouth Luke s mg tablet 11:05: daily. Medica l 59 Center tamsulosin Yes .4mg QD Take 0.[address] (FLOMAX) 8-04 mg by [facility]ukes 0.4 mg Cap 11:05: mouth Medica l 24 hr 59 daily. Center capsule mirabegron Yes QD Take by [facility] (Myrbetriq) 8 mouth Lukes 25 mg Tb24 11:05: daily. Medic al ER tablet 59 Center atorvastati Yes 20mg QD Take [address] n (LIPITOR) 804 by mouth Luke s 20 MG 11:05: daily. Medical tablet 59 Center netarsudiL- Yes Apply to [facility] latanoprost 804 eye(s). [facility]ukes 0.02-0.005 11:05: Medical % Drop [...] atorvastati Yes 20mg QD Take [address] [facility] [address] n (LIPITOR) 12-01 by mouth Luke s 20 MG 11:05: daily. Medical tablet 59 Center netarsudiL- Yes Apply to [facility] latanoprost 12-01 eye(s). [facility]ukes 0.02-0.005 11:05: Medical % Drop 59 Center Vital Signs Vital Name Observation Time Observation Value Comments Source Systolic blood 2021-12-01 11:31:00 144 mm[Hg] [facility] Diastolic blood 2021-12-01 11:31:00 77 mm[Hg] [facility] Heart rate 2021-12-01 11:31:00 55 /min [facility] Body temperature 2021-12-01 11:31:00 36.17 It[facility] Body height 2021-12-01 11:31:00 180.3 cm [facility] Body weight 2021-12-01 11:31:00 80.06 kg [facility] BMI 2021-12-01 11:31:00 24.62 kg/m2 [facility] Oxygen saturation in 2021-12-01 11:31:00 96 /min [facility] Arterial blood by Medical Ce nter Pulse oximetry Procedures Procedure Date / Time Performing Clinician Source Performed CT CHEST WITHOUT IV 2021-12-15 10:50:00 Sarah Stock [facility] COMPREHENSIVE METABOLIC 2021-12-01 12:44:00 Timothy Stockranda [facility] BILIRUBIN, DIRECT 2021-12-01 12:44:00 Sarah Stock [facility] CBC W/PLT COUNT & AUTO 2021-12-01 12:44:00 Sarah Stock [facility] PROTHROMBIN TIME/INR 2021-12-01 12:44:00 [facility] HEPATITIS A ANTIBODY, IGG 2021-12-01 12:44:00 Sarah Stock I [facility] HEPATITIS A ANTIBODY, IGM 2021-12-01 12:44:00 AnuduSarah [facility] HEPATITIS B SURFACE ANTIGEN 2021-12-01 12:44:00 Anudu, [facility] HEPATITIS B SURFACE 2021-12-01 12:44:00 [facility] HEPATITIS B CORE ANTIBODY, 2021-12-01 12:44:[address] [facility] TOTAL [facility] HEPATITIS C ANTIBODY 2021-12-01 12:44:00 Anudu, [facility] IRON, TIBC, % SAT. (WITHOUT 2021-12-01 12:44:00 Anudu [facility] FERRITIN) [facility] FERRITIN 2021-12-01 12:44:00 Anudcolin [facility] NFTUS-7-QAULAVBQRSI\, SERUM 2021-12-01 12:44:00 Anudu [facility] CERULOPLASMIN 2021-12-01 12:44:00 Anudu, [facility] ANTI-NUCLEAR ANTIBODY (GRACY) 2021-12-01 12:44:00 Ankishor [facility] ACTIN (SMOOTH MUSCLE) 2021-12-01 12:44:00 [facility] IGG [facility] MITOCHONDRIA M2 ANTIBODY 2021-12-01 12:44:00 Ankishor [facility] (IGG) [facility] ALPHA FETOPROTEIN (AFP), 2021-12-01 12:44:00 Ankishor [facility] TUMOR MARKER [facility] CARBOHYDRATE ANTIGEN 19-9 2021-12-01 12:44:00 AnSarah iverson I [facility] (CA 19-9) [facility] CARCINOEMBRYONIC ANTIGEN 2021-12-01 12:44:00 Ankishor [facility] (CEA) [facility] GRACY TITER AND PATTERN 2021-12-01 12:44:00 Sarah Stock [facility] CBC W/PLT COUNT & AUTO 2021-12-01 12:44:00 Sarah Stock [facility] COVID-19 QUALITATIVE RT-PCR 2020-05-20 19:30:00 David Wood [facility] Plan of Care Planned Activity Planned Date Details Comments Source Future Scheduled 2022-03-06 HEPATITIS B VACCINES Met [facility] Test 10:43:22 (1 of 3 - 3-dose series) [code = HEPATITIS B VACCINES (1 of 3 - 3-dose series)] Future Scheduled 2022-03-06 COVID-19 VACCINE (#1) [facility] Test 10:43:22 [code = COVID-19 VACCINE (#1)] Future Scheduled 2022-03-06 SHINGLES VACCINES (1 Met [facility] Test 10:43:22 of 2) [code = SHINGLES VACCINES (1 of 2)] Future Scheduled 2022-03-06 65+ PNEUMOCOCCAL [facility] Test 10:43:22 VACCINE (1 - PCV) [code = 65+ PNEUMOCOCCAL VACCINE (1 - PCV)] Future Scheduled 2022-03-06 INFLUENZA VACCINE Method [facility] Test 10:43:22 [code = INFLUENZA VACCINE] Future Scheduled 2022 HEPATITIS B VACCINES Met [facility] Test 06:27:00 (1 of 3 - 3-dose series) [code = HEPATITIS B VACCINES (1 of 3 - 3-dose series)] Future Scheduled 2022 COVID-19 VACCINE (#1) [facility] Test 06:27:00 [code = COVID-19 VACCINE (#1)] Future Scheduled 2022 SHINGLES VACCINES (1 Met [facility] Test 06:27:00 of 2) [code = SHINGLES VACCINES (1 of 2)] Future Scheduled 2022 65+ [facility] 06:[facility] VACCINE (1 - PCV) [code = 65+ PNEUMOCOCCAL VACCINE (1 - PCV)] Future Scheduled 2022 INFLUENZA VACCINE Method [facility] Test 06:27:00 [code = INFLUENZA VACCINE] Future Scheduled 2021-12-30 HEPATITIS B VACCINES Met [facility] Test 19:10:41 (1 of 3 - 3-dose series) [code = HEPATITIS B VACCINES (1 of 3 - 3-dose series)] Future Scheduled 2021-12-30 COVID-19 VACCINE (#1) [facility] Test 19:10:41 [code = COVID-19 VACCINE (#1)] Future Scheduled 2021-12-30 COLONOSCOPY SCREENING [facility] Test 19:10:41 [code = COLONOSCOPY SCREENING] Future Scheduled 2021-12-30 SHINGLES VACCINES (1 Met [facility] Test 19:10:41 of 2) [code = SHINGLES VACCINES (1 of 2)] Future Scheduled 2021-12-30 65+ [facility]OCCAL [facility] 19:10:41 VACCINE (1 - PCV) [code = 65+ PNEUMOCOCCAL VACCINE (1 - PCV)] Future Scheduled 2021-12-30 INFLUENZA VACCINE Method [facility] Hospital Test 19:10:41 [code = INFLUENZA VACCINE] [...] Future Scheduled 2021-05-31 COVID-19 VACCINE (1) [facility] Test 13:15:12 [code = COVID-19 VACCINE (1)] Future Scheduled 2021-05-31 65[facility] Test 13:15:12 VACCINE (1 of 2 - PPSV23) [code = 65+ PNEUMOCOCCAL VACCINE (1 of 2 - PPSV23)] Future Scheduled 2021-05-31 Hepatitis C screening [facility] Test 13:15:12 (procedure) [code = 989377235] Future Scheduled 2021-05-31 COLONOSCOPY SCREENING [facility] Test 13:15:12 [code = COLONOSCOPY SCREENING] Future Scheduled 2021-05-31 SHINGLES VACCINES (#1) [facility] Test 13:15:12 [code = SHINGLES VACCINES [...] PPSV23)] Future Scheduled DIABETES: RETINAL EYE [facility] Test EXAM [code = DIABETES: RETINAL EYE EXAM] Future Scheduled DIABETIC FOOT EXAM [facility] Test [code = DIABETIC FOOT EXAM] Future Scheduled URINE MICROALBUMIN [facility] Test [code = URINE MICROALBUMIN] Future Scheduled COVID-19 VACCINE (1) [facility] Test [code = COVID-19 VACCINE (1)] Future Scheduled Hepatitis C screening [facility] Test (procedure) [code = 356328647] Future Scheduled COLONOSCOPY SCREENING [facility] Test [code = COLONOSCOPY SCREENING] Future Scheduled SHINGLES VACCINES (#[facility]) [facility] [code = SHINGLES VACCINES (#1)] Future Scheduled [facility]ZA [facility]ACCINE [facility] [code = INFLUENZA VACCINE] Encounters Start End Encounter Admission Attending Care Care Encounter Source Date/Time Date/Time Type Type Clinicians Facility Department ID 2022-03-06 2022[facility]03[facility]06 [id number] 14:30:01 14:30:01 Encounter [facility] 2022-03-03 2022-03-03 [id number] [facility] 00[facility] [facility] 2022-03-03 2022-03-03 [id number] [facility] 00[facility] 2022 2022 Telephone Russell [facility] [id number] 00:00:00 00:00:00 [facility] 2022 2022 Orders Alber [facility] [id number] 00:00:00 00:00:00 Only [facility] 2022 2022 Telephone Russell [facility] [id number] 00:00:00 00:00:00 [facility] 2022 2022 Orders Alber [facility] [id number] 00:00:00 00:00:00 Only [facility] 2021-12-15 2021-12-15 [facility] [place] [facility] [id number] 10:34:57 23:59:00 Encounter 1, [facility] [address] Room [facility] 2021-12-15 2021-12-15 Outpatient VALERIA LOTT SLEKailyn [id number] [facility] 10:34:57 23:59:00 [facility] 2021-12-15 2021-12-15 [facility] Sarah Stock [facility] [id number] 10:34:57 23:59:00 Encounter 1, [facility] [address] Room [facility] 2021-12-09 2021-12-09 Abstract Priscilla [facility] [id number] 00:00:00 00:00:00 [facility] 2021-12-09 2021-12-09 Abstract Priscilla [facility] [id number] 00:00[facility]00 00:00:00 [facility] 2021-12-06 2021-12-06 Telephone Alessio [facility] [id number] 00:00:00 00:00:00 [facility] 2021-12-06 2021-12-06 Telephone Alessio [facility] [id number] 00:00:00 00:00:00 [facility] 2021-12-02 2021-12-02 Lenny Mccallum [facility] [id number] 00:00:00 00:00:00 [facility] 2021-12-02 2021-12-02 Lenny Mccallum [facility] [id number] 00:00:00 00:00:00 [facility] 2021-12-01 2021-12-01 Office Russell [facility] [id number] 11:00:00 12:00:00 Visit [facility] 2021-12-01 2021-12-01 Office BRYNN Wells [facility] [id number] 11:00:00 12:00:00 Visit [facility] 2021-12-01 2021-12-01 Outpatient VALERIA MORRIS [facility] [id number] SLE 10:47:10 10:47:10 [facility] 2021-11-16 2021-11-16 Documentat Javier, [facility] [id number] [id number] 00:00:00 00:00:00 [facility] 2021-11-16 2021-11-16 Documentat Javier, [facility] [id number] 00:00:00 00:00:00 [facility] 2020-05-20 2020-05-20 Fabián Wood 1.2.840.1 [id number] Methodi 13:19:54 13:34:[address] 3.430.2.7 Hospit a .3.708033 l .8 2020-05-20 2020-05-20 Travel 1.2.840.1 1.2.877.650 [id number] Methodi 00:00:00 00:00:[address] 3.430.2.7 0.2.7.3.698 Ho spita .3.620518 084.8 l .8 2020-05-11 2020-05-11 Lyndsey Wood 1.2.840.1 [id number] Methodi 00:00:00 00:00:00 Only David L. 07703.1.[address] 3.430.2.7 Hospit a .3.885396 l .8 Results Test Description Test Time Test Comments Results Result [facility] e Comments CT, CHEST, WITHOUT 2021-12-16 Referred by: IV CONTRAST 11:52:00 Magdy [id number] [facility] 007Unlisted [facility] Reason for CENTERName: GARCÍA, Exam - Click [...] Palomo Verified Date/Time: 12/16/2021 11:52:37 Reading Location: [facility] Reading Room [address] [place] [address] Y TITER AND PATTERN 2021-12-05 13:41:49 Test Item Value Reference Range Interpretation Comme nts GRACY TITER (BEAKER) (test code = 1541) :160 GRACY PATTERN (BEAKER) (test code = 1781) Nucleolar ANTI-NUCLEAR ANTIBODY (GRACY)2021-12-05 13:41:38 Test Item Value Reference Range Interpretation Comments ANTI-NUCLEAR ANTIBODY (GRACY) (BEAKER) Positive Negative A (test code = 418) Test performed by IFA method.[id number] 17:07:28 Test Item Value Reference Range Interpretation Comments FERRITIN (BEAKER) (test code = 326.37 ng/mL 5.00-275.00 H 361) Residential Property Consultant ID - PIAYA LCARCINOEMBRYONIC ANTIGEN (CEA)2021-12-01 16:20:58 Test Item Value Reference Range Interpretation Comments CARCINOEMBRYONIC ANTIGEN (BEAKER) 1.4 ng/mL 0.0-5.0 (test code = 685) Residential Property Consultant ID - YASMIN MALPHA FETOPROTEIN (AFP), TUMOR [id number] 16:20:58 Test Item Value Reference Range Interpretation Comments ALPHA-FETOPROTEIN (BEAKER) (test 105.2 ng/mL <10.0 H code = 1094) Residential Property Consultant ID - YASMIN MHEPATITIS A ANTIBODY, [id number] 16:20:58 Test Item Value Reference Range Interpretation Comments HEPATITIS A IGM ANTIBODY (BEAKER) Nonreactive Nonreactive (test code = 498) Residential Property Consultant ID - YASMIN MHEPATITIS A ANTIBODY, [id number] 16:20:58 Test Item Value Reference Range Interpretation Comments HEPATITIS A IGG ANTIBODY (BEAKER) Nonreactive Nonreactive (test code = 2797) Residential Property Consultant ID - YASMIN MHEPATITIS B CORE ANTIBODY, [id number] 16:18:45 Test Item Value Reference Range Interpretation Comments HEPATITIS B CORE TOTAL ANTIBODY Reactive Nonreactive A (BEAKER) (test code = 497) Residential Property Consultant ID - YASMIN MHEPATITIS B SURFACE [id number] 16:12:55 Test Item Value Reference Range Interpretation Comments HEPATITIS B SURFACE ANTIBODY 21.9 mIU/mL <8.0 H (BEAKER) (test code = 647) Residential Property Consultant ID - YASMIN MHEPATITIS C [id number] 16:12:55 Test Item Value Reference Range Interpretation Comments HEPATITIS C ANTIBODY (BEAKER) Nonreactive Nonreactive (test code = 367) Residential Property Consultant ID - YASMIN MHEPATITIS B SURFACE [id number] 16:12:55 Test Item Value Reference Range Interpretation [...] 24 % 20-55 (test code = 2590) Residential Property Consultant ID - YASMIN [id number] 15:37:05 Test Item Value Reference Range Interpretation Comments ALPHA-1 ANTITRYPSIN (BEAKER) 204.60 mg/dL 90.00-200.00 H (test code = 502) Residential Property Consultant ID - YASMIN MBILIRUBIN, [id number] 15:32:23 Test Item Value Reference Range Interpretation Comments BILIRUBIN DIRECT (BEAKER) (test 0.2 mg/dL 0.1-0.5 code = 706) Residential Property Consultant ID - YASMIN MCOMPREHENSIVE METABOLIC [id number] 15:32:22 Test Item Value Reference Range Interpretation [...] eGF R is based on the CKD-EPI 2021 equation that d oes not use a race coefficientEsti mated GFR is not as accur ate as Creatinine Janet villaseñor in predicting glom erular filtration rate . Estimated GFR is not appl icable for dialysis patien ts Residential Property Consultant ID - YASMIN MPROTHROMBIN [id number] 14:46:37 Test Item Value Reference Range Interpretation Comments PROTIME (BEAKER) 14.3 seconds 11.9-14.2 H (test code = 759) INR (BEAKER) (test 1.18 See_Comment [Automat ed message] code = 370) The system [employer] generated this result transmitted ref erence range: <=5.90. The reference range was not used to int erpret this result as normal/abnormal . RECOMMENDED COUMADIN/WARFARIN INR THERAPY RANGESSTANDARD DOSE: 2.0 - 3.0 Includes: PROPHYLAXIS for venous thrombosis, systemic embolization; TREATMENT for venous thrombosis and/or pulmonary embolus.HIGH RISK: Target INR is 2.5-3.5 for patients with mechanical heart valves.CBC W/PLT COUNT & AUTO [id number] 14:37:29 Test Item Value Reference Range Interpretation [...] (BEAKER) (test code = 2801) COVID-19 qualitative [id number] 01:17:25 Test Item Value Reference Range Interpretation Comments Interpretation (test Positive results code = 6931443) are indicative of active infection with 2019-nCoV but do not rule out bacterial infection or coinfection with other viruses. The agent detected may not be the definite cause of disease. COVID-19 qualitative Detected Not-Detected A RT-PCR result (test code = 68171-7) COVID-19 qualitative See link below for C ase Number: RT-PCR (test code = PDF Lab Report [id number]) Lab Interpretation Abnormal (test code = 27616-4) [facility] ([facility]OVID-[facility]) RNA [Presence] in Respiratory specimen by THOR with probe [id number] 19:17:06 Test Item Value Reference Range Interpretation Comments SARS-CoV-2 (COVID-19) RNA [Presence] Detected Not-Detected in Respiratory specimen by THOR with probe detection (test code = 51515-2) [facility]
[2022-03-09 12:39] LABS: Absolute Lymphocytes (CBC) 1.1 K/uL (0.7-4.9); Hematocrit 41.2 % (39.6-49.0); Lymphocytes % 14.6 % (15.3-44.8); MCV 95.9 fL (80-100); MPV 8.5 fL (7.6-11.3); RBC Red Blood Cell Count 4.29 M/uL (4.33-5.43)
[2022-03-09 12:47] LABS: Protime INR 1.15
[2022-03-09 12:51] LABS: SARS-CoV-2 Antigen Rapid Res Negative (Negative)
[2022-03-09 13:08] LABS: Bilirubin Direct 0.2 mg/dL (0-0.2); Bilirubin Total 0.7 mg/dL (0.2-1.0); Magnesium 2.2 mg/dL (1.8-2.4); Phosphorus 3.4 mg/dL (2.5-4.9); Potassium 4.2 mmol/L (3.5-5.1); Thyroid Stimulating Hormone 1.24 uIU/mL (0.360-3.740)
[2022-03-09] MEDS ORDERED: HYDROMORPHONE HCL 1 MG/ML INJ IV PRN (13:42)
[2022-03-09] MEDS ORDERED: ALBUTEROL 2.5 MG/3 ML NEB SOL IH PRN (13:44)
[2022-03-09] MEDS ORDERED: ONDANSETRON 4 MG/2 ML VIAL IV PRN (14:00)
[2022-03-09] MEDS ORDERED: DIPHENHYDRAMINE 25 MG TAB/CAP PO PRN (14:00)
[2022-03-09] MEDS ORDERED: LOPERAMIDE HCL 2 MG CAPSULE PO PRN (14:00)
[2022-03-09] MEDS ORDERED: ONDANSETRON 4 MG (ODT) TAB PO PRN (14:00)
[2022-03-09] MEDS: IPRATROPIUM BROM 0.5MG/2.5ML IH SCH ×2 (14:00→20:00)
[2022-03-09] MEDS: LEVALBUTEROL 1.25 MG/3 ML NEB IH SCH ×2 (14:00→20:00)
[2022-03-09] MEDS ORDERED: POLYETHYL GLY 3350 17 GM/DOSE PO PRN (14:00)
[2022-03-09] MEDS ORDERED: ACETAMINOPHEN 325 MG TABLET PO PRN (14:00)
--- NOTE | 2022-03-09 15:25 | RAD REPORT ---
EXAM DESCRIPTION: CT - Thorax W/ Con - 03/09/2022 3:10 pm CLINICAL HISTORY: chest pain, bacterial pneumonia COMPARISON: Chest Angio dated 03/02/2022; Chest For Pe Angio dated 01/02/2021; Chest For Pe Angio dated 04/10/2020; Abdomen Pelvis W Contrast dated 03/02/2022; Mri Abdomen W/Wo Cont dated 11/10/2021; Abdo men Pelvis W Contrast dated 11/28/2021 TECHNIQUE: Dynamically enhanced axial 3 mm thick images of the chest were obtained during administra tion of <100> mL Isovue 370 IV contrast. Coronal and oblique reconstruction images were generated and reviewed. Exam utilizes a protocol for optimal evaluation of pulmonary arterial tree. Maximum intensity projections 3D imaging was utilized All CT scans are performed using dose optimization technique as appropriate and may include automated exposure control or mA/KV adjustment according to patient size. FINDINGS: Chest Wall: No suspicious thyroid nodules or pathologic lymphadenopathy. Lungs: Nodular airspace disease present in the right upper lobe. Masslike consolidation left lower lo be with architectural distortion. Bronchial wall thickening is present. Pleura: Small left pleural effusion. This is chronic. Mediastinum/love: No pathologic lymphadenopathy. Pulmonary arteries/Aorta: No filling defect identified. No aortic aneurysm. Heart: No significant pericardial effusion. Normal heart size. Multi-vessel coronary disease. Upper abdomen: Mass at the pancreatic neck measuring 2.2 cm. Lesion peripherally in the right hepatic lobe measuring 4.2 cm also noted. Bones: No acute abnormality. IMPRESSION: Positive for pulmonary embolism with segmental size thrombus in the right lower lobe. Th e finding is new from prior. The overall clot burden is low. Conveyed to Dr. Verde by Dr. Kay at 1517 on 03/09/22 Airspace disease in the right lung that could reflect pneumonia or pneumonitis. Overall, the findings are slightly improved compared with 03/02/2022 . Masslike consolidation left lower lobe likely repre sents round atelectasis. Pancreatic lesion with presumed metastatic lesion to the liver. This could represent a neuroendocrine tumor.
[2022-03-09] MEDS: ENOXAPARIN 80 MG/0.8 ML SQ SCH (16:23)
[2022-03-09 16:59] LABS: Specific Gravity > 1.030 (1.005-1.030); Urine Bilirubin NEGATIVE (Negative); Urine Blood Negative (Negative); Urine Clarity Clear (Clear); Urine Color Colorless (Yellow); Urine Glucose NEGATIVE (Negative); Urine Protein TRACE (Negative); Urine RBC <5 /HPF (None Seen); Urine Urobilinogen Normal (Normal); Urine pH 5.5 (5.0-7.0)
[2022-03-09] MEDS ORDERED: INFLUENZA VACCINE (for 6+ mo) 0.5 ML DOSE IMVAC ONE (17:00)
[2022-03-09 17:16] LABS: UR MICROALBUMIN 16.2 mg/dL (< 1.9)
[2022-03-09] MEDS: NACHLORIDE 0.45% 1,000 ML IV SCH (17:25)
[2022-03-09] MEDS: Meropenem 1,000 MG in NA CHLORIDE 0.9% 100 ML IV SCH ×2 (17:26→20:39)
[2022-03-09] MEDS ORDERED: GLUCAGON 1 MG/VIAL IM PRN (17:42)
[2022-03-09] MEDS ORDERED: DEXTROSE 10%-WATER 500 ML IV BAG IV PRN (17:49)
[2022-03-09] MEDS: INSULIN -REGULAR HUMAN 50 UNIT/0.5 ML ML SQ SCH (20:38)
[2022-03-10] MEDS: IPRATROPIUM BROM 0.5MG/2.5ML IH SCH ×4 (01:25→19:15)
[2022-03-10] MEDS: LEVALBUTEROL 1.25 MG/3 ML NEB IH SCH ×4 (01:25→19:15)
[2022-03-10] MEDS: ENOXAPARIN 80 MG/0.8 ML SQ SCH ×2 (05:23→16:22)
[2022-03-10 06:05] LABS: Hematocrit 37.4 % (39.6-49.0); MCV 94.2 fL (80-100); MPV 8.4 fL (7.6-11.3); RBC Red Blood Cell Count 3.96 M/uL (4.33-5.43)
[2022-03-10 06:06] LABS: Absolute Lymphocytes (CBC) 1.5 K/uL (0.7-4.9)
[2022-03-10 06:15] LABS: Magnesium 2.2 mg/dL (1.8-2.4); Potassium 3.4 mmol/L (3.5-5.1)
[2022-03-10] MEDS: INSULIN -REGULAR HUMAN 50 UNIT/0.5 ML ML SQ SCH ×4 (07:30→21:00)
[2022-03-10] MEDS ORDERED: POLYETHYL GLY 3350 17 GM/DOSE PO PRN ×2 (08:24→08:25)
[2022-03-10] MEDS ORDERED: HOME MED 1 EA UNK (Levothyroxine Sodium [Levothyroxine] 25 MCG Capsule) PO SCH (09:00)
[2022-03-10] MEDS ORDERED: ENOXAPARIN 40 MG/0.4 ML SQ SCH (09:00)
[2022-03-10] MEDS ORDERED: DORZOLAMIDE HCL EACH EYE SCH (09:00)
[2022-03-10] MEDS: TAMSULOSIN 0.4 MG SR CAP PO SCH ×2 (09:00→10:23)
[2022-03-10] MEDS ORDERED: HOME MED 1 EA UNK (Mirabegron [Myrbetriq] 25 MG Tab.Er.24h) PO SCH (09:00)
[2022-03-10] MEDS ORDERED: DORZOLAMIDE EACH EYE SCH (09:00)
[2022-03-10] MEDS: HOME MED 1 EA UNK (Brinzolamide/Brimonidine Tart [Simbrinza 1%-0.2% Eye Drops] 8 ML Drops. OPTH SCH ×2 (09:00→21:58)
[2022-03-10] MEDS ORDERED: POTASSIUM 25 MEQ EFFERV TAB PO ONE (09:00)
[2022-03-10] MEDS: LACTULOSE 20 GM/30 ML UCUP PO SCH ×2 (10:20→16:10)
[2022-03-10] MEDS: GLIMEPIRIDE 2 MG TABLET PO SCH (10:21)
[2022-03-10] MEDS: VITAMIN D 5,000 UNIT CAP PO SCH (10:21)
[2022-03-10] MEDS: LOSARTAN POTASSIUM 50 MG TABLET PO SCH (10:21)
[2022-03-10] MEDS: LACTOBACILLUS/ACIDOPHILUS TAB PO SCH (10:22)
[2022-03-10] MEDS: ASCORBIC ACID 500 MG TABLET PO SCH (10:22)
[2022-03-10] MEDS: FINASTERIDE 5 MG TAB PO SCH (10:23)
[2022-03-10] MEDS: CLOPIDOGREL 75 MG TABLET PO SCH (10:23)
[2022-03-10] MEDS: LEVOTHYROXINE SOD 0.075 MG TAB PO SCH (10:23)
[2022-03-10] MEDS: NACHLORIDE 0.45% 1,000 ML IV SCH (10:24)
[2022-03-10] MEDS: Meropenem 1,000 MG in NA CHLORIDE 0.9% 100 ML IV SCH ×2 (10:25→21:07)
[2022-03-10] MEDS: GLUCOSAM/CHONDROI 500mg-400mg PO SCH (10:33)
--- NOTE | 2022-03-10 10:34 | RAD REPORT ---
EXAM DESCRIPTION: US - Extrem Venous W Compress Tank - 03/10/2022 9:55 am CLINICAL HISTORY: EDEMA Bilateral leg edema and swelling. COMPARISON: Extrem Venous W Compress Tank dated 07/29/2020 TECHNIQUE: Real-time sonographic interrogation of the left and right lower extremity deep venous sys tems was performed. FINDINGS: Normal compressibility, flow augmentation, phasic flow and spontaneous flow is identified in both the left and right lower extremity deep venous systems. IMPRESSION: No sonographic evidence of left or right lower extremity deep venous thrombosis.
[2022-03-10 12:39] VITALS: BMI 23.9
--- NOTE | 2022-03-10 14:38 | P.PN ---
Subjective Date of Service: 03/10/22 Chief Complaint: MR. MARIANO IS DOING SOME BETTER. HE STILL HAS CHEST PAIN. Subjective: Improving ABOVE. Physical Examination - Vital Signs Temperature: 98.1 F Blood Pressure: 134/68 Pulse: 61 Respirations: 18 Pulse Ox (%): 97 - Physical Exam General: Oriented x3, Moderate distress HEENT: Atraumatic, PERRLA, EOMI Neck: Supple, JVD not distended Respiratory: Clear to auscultation bilaterally, Normal air movement Cardiovascular: Regular rate/rhythm, Normal S1 S2 Gastrointestinal: Normal bowel sounds, No tenderness Musculoskeletal: No tenderness Integumentary: No rashes Neurological: Normal speech, Normal tone, Normal affect Lymphatics: No axilla or inguinal lymphadenopathy - Studies Laboratory Data (last 24 hrs) 03/10/22 05:43: Sodium 138, Potassium 3.4 L D, BUN 20 H, Creatinine 1.15, Glucose 129 H, Magnesium 2.2 03/10/22 05:43: WBC 8.60, Hgb 12.7 L, Hct 37.4 L, Plt Count 182 Microbiology Data (last 24 hrs): 03/10/22 06:36 Sputum Sputum Gram Stain - Final Medications List Reviewed: Yes Assessment And Plan - Current Problems (Diagnosis) (1) Pulmonary emboli Current Visit: Yes Status: Acute Plan: MR. MARIANO WAS RECENTLY IN FOR PNEUMONIA. HE DID WELL WITH LEVAQUIN, HE HAD NO CHEST PAIN AT TIME OF DISCHARGE. HE DOES NOT DO MUCH AND SITS ALL DAY. HE CAME TO OFFICE WITH CHEST PAIN R SIDE AND INABILITY TO BREATH SO I SUSPECTED REFRACTORY PNEUMONIA AND ADMITTED HIM. HE ACTUALLY HAS PE THAT WAS NOT THERE AT TIME OF ADMISSION OR DISCHARGE LAST WEEK. THIS HAPPENED BECAUSE OF NOT DOING MUCH WALKING AT HOME. SAYS HE SITS ALL DAY HE IS BLIND. NOW ON SHE WILL WALK HIM DAILY. ON LOVENOX HE IS DOING BETTER. I WILL SEND HIM HOMEIN AM AFTER PAIN CONTROL IMPROVES. Qualifiers: Pulmonary embolism type: single subsegmental (without acute cor pulmonale) Qualified Code(s): I26.93 - Single subsegmental pulmonary embolism without acute cor pulmonale (2) Blind Current Visit: Yes Status: Acute (3) Diabetes Current Visit: No Status: Chronic
[2022-03-10] MEDS ORDERED: HOME MED 1 EA UNK (Latanoprost/Pf [Latanoprost 0.005% Eye Drop] 7.5 ML Drops) OPTH SCH (21:00)
[2022-03-10] MEDS ORDERED: ATORVASTATIN 20 MG TAB PO SCH (21:00)
[2022-03-10] MEDS ORDERED: HOME MED 1 EA UNK (Netarsudil Mesylate [Rhopressa] 2.5 ML Drops) OPTH SCH (21:00)
[2022-03-10] MEDS ORDERED: LATANOPROST 0.005% 2.5ML OPTH OPTH SCH (21:00)
[2022-03-10] MEDS ORDERED: POTASSIUM CL SA 10 MEQ TAB PO ONE (22:53)
[2022-03-11] MEDS: LEVALBUTEROL 1.25 MG/3 ML NEB IH SCH ×2 (01:20→08:00)
[2022-03-11] MEDS: IPRATROPIUM BROM 0.5MG/2.5ML IH SCH ×2 (01:20→08:00)
[2022-03-11 01:59] VITALS: O2SAT 95
[2022-03-11] MEDS: ENOXAPARIN 80 MG/0.8 ML SQ SCH (04:34)
[2022-03-11] MEDS: GLIMEPIRIDE 2 MG TABLET PO SCH (06:08)
[2022-03-11] MEDS: LEVOTHYROXINE SOD 0.075 MG TAB PO SCH (06:08)
[2022-03-11 06:51] LABS: Absolute Lymphocytes (CBC) 1.5 K/uL (0.7-4.9); Hematocrit 37.3 % (39.6-49.0); Lymphocytes % 21.9 % (15.3-44.8); MCV 94.8 fL (80-100); MPV 8.4 fL (7.6-11.3); RBC Red Blood Cell Count 3.93 M/uL (4.33-5.43)
[2022-03-11 07:13] LABS: Magnesium 2.3 mg/dL (1.8-2.4); Potassium 3.8 mmol/L (3.5-5.1)
[2022-03-11] MEDS ORDERED: POTASSIUM CL SA 10 MEQ TAB PO ONE (07:23)
[2022-03-11] MEDS: INSULIN -REGULAR HUMAN 50 UNIT/0.5 ML ML SQ SCH ×2 (07:30→11:30)
[2022-03-11] MEDS: TAMSULOSIN 0.4 MG SR CAP PO SCH (09:00)
[2022-03-11] MEDS: Meropenem 1,000 MG in NA CHLORIDE 0.9% 100 ML IV SCH (09:00)
[2022-03-11] MEDS: LACTULOSE 20 GM/30 ML UCUP PO SCH (09:00)
[2022-03-11] MEDS: HOME MED 1 EA UNK (Brinzolamide/Brimonidine Tart [Simbrinza 1%-0.2% Eye Drops] 8 ML Drops. OPTH SCH (09:00)
[2022-03-11] MEDS ORDERED: HOME MED 1 EA UNK (Mirabegron [Myrbetriq] 25 MG Tab.Er.24h) PO SCH (09:00)
[2022-03-11] MEDS: LACTOBACILLUS/ACIDOPHILUS TAB PO SCH (09:05)
[2022-03-11] MEDS: LOSARTAN POTASSIUM 50 MG TABLET PO SCH (09:05)
[2022-03-11] MEDS: ASCORBIC ACID 500 MG TABLET PO SCH (09:05)
[2022-03-11] MEDS: CLOPIDOGREL 75 MG TABLET PO SCH (09:05)
[2022-03-11] MEDS: GLUCOSAM/CHONDROI 500mg-400mg PO SCH (09:06)
[2022-03-11] MEDS: FINASTERIDE 5 MG TAB PO SCH (09:06)
[2022-03-11] MEDS: VITAMIN D 5,000 UNIT CAP PO SCH (09:06)
[2022-03-11 09:52] VITALS: BP 157/79; TEMP 98.1
--- NOTE | 2022-03-11 21:32 | P.DS ---
Admission Date: 03/09/22 Discharge Date: 03/11/22 Disposition: ROUTINE DISCHARGE Discharge Condition: GOOD Reason for Admission: FLORES, chest pain Hospital Course: Problem List Pulmonary embolism Blind DM2 Patient presented with shortness of breath. CT chest revealed a PE, and noted improvement of prior/recent pneumonia. He was treated with lovenox for anticoagulation and empirically covered with meropenem. He remained afebrile and without leukocytosis. His symptoms resolved, ambulated around the nursing station, and did not require oxygen supplementation. On day of discharge he was pain free, breathing comfortably on room air, and was ready to go home. He was deemed stable for discharge. Eliquis and Xarelto were both sent to his pharmacy to confirm pricing / affordability. Both were very expensive for the patient since he has [facility] benefits and currently can't get them through the [facility]. Patient was prescribed a few days of Eliquis and will follow up with his PCP to asssist with samples if needed until patient can get prescription through [facility] - confirmed with patient's PCP. continue other home medications as prescribed. Continue antibiotic - levaquin as previously prescribed. Follow up with Dr. Verde in ~1 week Vital Signs/Physical Exam: Temp Pulse Resp BP Pulse Ox 98.1 F 67 16 157/79 H 93 03/11/22 08:00 03/11/22 08:00 03/11/22 08:00 03/11/22 08:00 03/11/22 08:00 General: Alert, In no apparent distress, Oriented x3 HEENT: Mucous membr. moist/pink, Sclerae nonicteric Neck: Supple, No LAD Respiratory: Clear to auscultation bilaterally, Normal air movement Cardiovascular: No edema, Regular rate/rhythm Gastrointestinal: Soft and benign, Non-distended, No tenderness Musculoskeletal: No contractures, No tenderness Integumentary: No rashes, No breakdown, No significant lesion Neurological: Normal speech, Normal affect Laboratory Data at Discharge: WBC 6.80 K/uL (4.3-10.9) 03/11/22 06:26 Hgb 12.7 g/dL (13.6-17.9) L 03/11/22 06:26 Hct 37.3 % (39.6-49.0) L 03/11/22 06:26 Plt Count 181 K/uL (152-406) 03/11/22 06:26 PT Cancelled 03/09/22 13:45 INR Cancelled 03/09/22 13:45 APTT Cancelled 03/09/22 13:45 Sodium 141 mmol/L (136-145) 03/11/22 06:26 Potassium 3.8 mmol/L (3.5-5.1) 03/11/22 06:26 BUN 15 mg/dL (7-18) 03/11/22 06:26 Creatinine 1.05 mg/dL (0.55-1.3) 03/11/22 06:26 Glucose 80 mg/dL (74-106) 03/11/22 06:26 Phosphorus Cancelled 03/09/22 13:45 Magnesium 2.3 mg/dL (1.8-2.4) 03/11/22 06:26 Total Bilirubin Cancelled 03/09/22 13:45 AST Cancelled 03/09/22 13:45 ALT Cancelled 03/09/22 13:45 Alkaline Phosphatase Cancelled 03/09/22 13:45 Home Medications: Cholecalciferol (Vitamin D3) [Vitamin D3] 1 tab PO DAILY 04/10/20 Clopidogrel Bisulfate [Plavix*] 75 mg PO DAILY 04/10/20 Dorzolamide HCl [Trusopt] 1 drop EACH EYE BID 04/10/20 Finasteride [Proscar*] 5 mg PO DAILY 04/10/20 Glimepiride 1 mg PO DAILY 04/10/20 L.acidoph,Paracasei, B.lactis [Probiotic] 1 cap PO DAILY 04/10/20 Latanoprost/Pf [Latanoprost 0.005% Eye Drop] 1 drop EACH EYE BEDTIME 04/10/20 Levothyroxine Sodium [Levothyroxine] 75 mcg PO DAILY 04/10/20 Mirabegron [Myrbetriq] 25 mg PO DAILY 90 Days #90 tab.er.24h 04/11/20 Tamsulosin [Flomax*] 0.4 mg PO DAILY 90 Days #90 cap 04/11/20 Atorvastatin Calcium [Lipitor*] 20 mg PO BEDTIME 03/03/22 Polyethylene Glycol 3350 [Miralax] 17 gm PO PRN PRN 03/03/22 Ascorbic Acid [Vitamin C] 1,000 mg PO DAILY 03/09/22 Brinzolamide/Brimonidine Tart [Simbrinza 1%-0.2% Eye Drops] 1 drop OPTH BID 03/09/22 Dorzolamide [Trusopt 2%*] 1 drop EACH EYE BID 03/09/22 Glucos Sul 2Kcl/MSM/Chond/C/Mn [Glucosamine Chondroitin Cap] 1 cap PO DAILY 03/09/22 Latanoprost Ophth [Xalatan 0.005%*] 1 drop OPTH BEDTIME 03/09/22 Netarsudil Mesylate [Rhopressa] 2.5 ml OP BEDTIME 03/09/22 Apixaban [Eliquis] 5 mg PO SEECOM 30 Days #74 tab 03/11/22 Rivaroxaban [Xarelto] 15 mg PO BID 21 Days #42 tablet 03/11/22 New Medications: Apixaban [Eliquis] 5 mg PO SEECOM 30 Days #74 tab Rivaroxaban [Xarelto] 15 mg PO BID 21 Days #42 tablet Physician Discharge Instructions: Patient presented with shortness of breath. CT chest revealed a PE, and noted improvement of prior/recent pneumonia. He was treated with lovenox for anticoagulation and empirically covered with meropenem. He remained afebrile and without leukocytosis. His symptoms resolved, ambulated around the nursing station, and did not require oxygen supplementation. Discharged home on anticoagulation - eliquis sent. continue other home medications as prescribed. Continue antibiotic - levaquin as previously prescribed. Follow up with Dr. Verde in ~1 week Followup: Dorian Verde MD [ACTIVE - CAN ADMIT] - 1 Week (Call to make appointment in 3- 5 days) Time spent managing pt's care (in minutes): 45
== END 2022-03-11 13:49 | disposition home or self-care (01) ==
LOC: 2ND 11:39
PROVIDERS: ADMIT Internal Medicine; ATTEND Hospitalist
DX: I26.93 Single subsegmental thrombotic pulmonary embolism without acute cor pulmonale (principal); E11.9 Type 2 diabetes mellitus without complications; H54.7 Unspecified visual loss; Z20.822 Contact with and (suspected) exposure to COVID-19; Z23 Encounter for immunization
CPT/HCPCS: 87070; 85025 ×3; 81001; 80048 ×3; 36415 ×3; 83735 ×3; 87205; 84100; 84132; 85610; 82947 ×7; 80076; 85730; 84443; 83036; 82570; 82607; 84145; 82306; 82043; 71260; 93970; 97116; 97161; 97530; 94640; 87811; Q9967; J7614 ×6; J1815; J2185 ×5; J1170; G0378; G0379

== ENCOUNTER 2022-04-16 13:45 | Emergency (ER) | payer OTHER ==
--- OUTSIDE RECORDS SUMMARY | 2022-04-16 13:49 | XMS REPORT | Continuity of Care Document ---
:1945 Author Organization [facility] t Address [address] [place] [address] Care Team Providers Name Role Phone MALIA VERDE Primary Care Physician UnavailEmmy Rachel Attending Clinician Jennifer Luke MD Attending Clinician Yeyo Wells MD Attending Clinician JENNIFER LUKE Attending Clinician Unavailable Marina Wells MA Attending Clinician Unavailable Shy PENNY, Patricia Attending Clinician Unavailable Renae Garay Attending Clinician [phone] Carina PENNY, Cynthia Andrew Attending Clinician Unavailable SARAH STOCK Attending Clinician Unavailable Sarah Stock Attending Clinician [address] [place] [address] Ct Room Attending Clinician Unavailable Luz Mccallum RN Attending [...] Date Date Clinician NO KNOWN Allergy Active [facility] Family History Family Member Diagnosis Comments Start Date Stop Date Source Natural father Stroke [facility] Natural mother Diabetes [facility] Social History Social Habit Start Date Stop Date Quantity Comments Source History SDOH [facility] Std Drinks [facility] Center History SDOH [facility] Alcohol Binge Medical Melinda ter History SDOH [facility] Alcohol Comment Medical C enter Alcohol intake 2022-04-05 2022-04-[address] [facility] 00:00:00 00:00:00 non-drinker Medical Cente r (finding) Tobacco use and 2021-12-01 2021-12-[address] [facility] exposure 00:00:00 00:00:00 [facility] Center History SDOH 2021-12-01 2021-12-[address] [facility] Alcohol Frequency 00:00:00 00:00:00 [facility] Sex Assigned At [address] 00:00:00 00:00:00 [facility] Smoking Status Start Date Stop Date Source Tobacco smoking consumption unknown [facility] Never smoker [facility] Med ical [place] Medications Ordered Filled Start Stop Current Ordering Indication Dosage Frequency Signature Comments Components Source Medication Medication Date Date Medication? Clinician (SIG) Name Name glimepiride Yes glimepirid [facility] (AMARYL) 1 804 e 2 mg [facility]ukes MG tablet 11:06: tablet TK Med ical 00 1 T PO D [place] WITH BREAKFAST. STOP PRANDIN brimonidine Yes [facility] (ALPHAGAN 8 [facility]ukes P) 0.1 % 11:06: Medical Drop 00 [place] latanoprost Yes 1[drp] QD [address] (XALATAN) 8-04 nightly. [facility]ukes 0.005 % 11:06: Medical ophthalmic 00 [place] solution Lactobacill Yes 1{tbl} Q.5D Take [address] us 8 tablet by Tammie acidoph-L.b 11:06: mouth 2 Med ical ulgar 00 (two) Center (FLORANEX) times 1 million daily. cell Tab per tablet glucosamine Yes 1{tbl} Q.[id number] Take [address] -chondroiti 8- [id number] tablet by Lukes n 500-400 11:06: 3D mouth 3 Medic al mg tablet 00 (three) Center times daily. calcium Yes 1{tbl} QD Take [address] carbonate-v 8-04 tablet by Angie es itamin D3 11:06: [...] [facility] us 12-01 tablet by Lukes acidoph-L.b 11:06: mouth 2 Med ical ulgar 00 (two) Center (FLORANEX) times 1 million daily. cell Tab per tablet glucosamine Yes 1{tbl} Q.[id number] Take [address] -chondroiti - [id number] tablet by Lukes n 500-400 11:06: 3D [...] cell Tab per tablet glucosamine Yes 1{tbl} Q.[id number] Take [address] -chondroiti 8- [id number] tablet by Lukes n 500-400 11:06: 3D mouth 3 Medic al mg tablet 00 (three) Center times daily. calcium Yes 1{tbl} QD Take [address] carbonate-v 8-04 tablet by Angie es itamin D3 11:06: mouth Medical (OSCAL) 250 00 daily. Center mg-3.125 mcg (125 unit) Tab per tablet brimonidine Yes [facility] (ALPHAGAN 8- Lukes P) 0.1 % 11:06: Medical Drop [...] cell Tab per tablet glucosamine Yes 1{tbl} Q.[id number] Take [address] -chondroiti 8- [id number] tablet by Lukes n 500-400 11:06: 3D mouth 3 Medic al mg tablet 00 (three) Center times daily. calcium Yes 1{tbl} QD Take [address] carbonate-v 8-04 tablet by Angie es itamin D3 11:06: mouth Medical (OSCAL) 250 00 daily. Center mg-3.125 mcg (125 unit) Tab per tablet glimepiride Yes glimepirid [facility] (AMARYL) 1 8-04 e 2 mg Lukes MG tablet 11:06: tablet TK Med ical 00 1 T PO D Center WITH BREAKFAST. STOP PRANDIN clopidogreL Yes 75mg QD Take 75 mg [...] 0.02-0.005 11:05: Medical % Drop 59 Center netarsudiL- Yes Apply to CH [...] mouth Medica l 24 hr 59 daily. [place] capsule mirabegron Yes QD Take by [facility] (Myrbetriq) 8-04 mouth Lukes 25 mg Tb24 11:05: daily. Medic al ER tablet 59 Center atorvastati Yes 20mg QD Take [address] n (LIPITOR) 8-04 by mouth Luke s 20 MG 11:05: daily. Medical tablet 59 Center Vital Signs Vital Name Observation Time Observation Value Comments Source Systolic blood 2022-04-05 11:09:00 145 mm[Hg] [facility] Diastolic blood 2022-04-05 11:09:00 82 mm[Hg] [facility] Heart rate 2022-04-05 11:09:00 61 /min [facility] Body temperature 2022-04-05 11:09:[address] [facility] Body height 2022-04-05 11:09:00 177.8 cm [facility] Body weight 2022-04-05 11:09:00 78.881 kg [facility] BMI 2022-04-05 11:09:00 24.95 kg/m2 [facility] Oxygen saturation in 2022-04-05 11:09:00 96 /min [facility] Arterial blood by Medical Ce nter Pulse oximetry Systolic blood 2021-12-01 11:31:00 144 mm[Hg] [facility] Diastolic blood 2021-12-01 11:31:00 77 mm[Hg] [facility] Heart rate 2021-12-01 11:31:00 55 /min [facility] Body temperature 2021-12-01 11:31:[address] [facility] Body height 2021-12-01 11:31:00 180.3 cm [facility] Body weight 2021-12-01 11:31:00 80.06 kg [facility] BMI 2021-12-01 11:31:00 24.62 kg/m2 [facility] Oxygen saturation in 2021-12-01 11:31:00 96 /min [facility] Arterial blood by Medical Ce nter Pulse oximetry Procedures Procedure Date / Time Performing Clinician Source Performed CHROMOGRANIN A 2022-04-05 12:33:00 Emmy Omalley [facility] CBC W/PLT COUNT & AUTO 2022-04-05 12:33:[address] [facility] PROTHROMBIN TIME/INR 2022-04-05 12:33:[address] [facility] ALPHA FETOPROTEIN (AFP), 2022-04-05 12:33:00 Emmy Omalley [facility] TUMOR MARKER [facility] CARCINOEMBRYONIC ANTIGEN 2022-04-05 12:33:00 Emmy Omalley [facility] (CEA) [facility] CARBOHYDRATE ANTIGEN 19-9 2022-04-05 12:33:00 Emmy Omalley [facility] (CA 19-9) [facility] CBC W/PLT COUNT & AUTO 2022-04-05 12:33:[address] [facility] MR ABDOMEN WITH & WITHOUT 2022-03-06 17:14:00 Renae Campo [facility] IV CONTRAST [facility] CT CHEST WITHOUT IV 2021-12-15 10:50:00 Sarah Stock [facility] COMPREHENSIVE METABOLIC 2021-12-01 12:44:00 [facility] BILIRUBIN, DIRECT 2021-12-01 12:44:00 Ankishor [facility] CBC W/PLT COUNT & AUTO 2021-12-01 12:44:00 [facility] DIFFERENTIAL [facility] PROTHROMBIN TIME/INR 2021-12-01 12:44:00 Ankishor [facility] HEPATITIS A ANTIBODY, IGG 2021-12-01 12:44:00 Ankishor [facility] HEPATITIS A ANTIBODY, IGM 2021-12-01 12:44:00 Ankishor [facility] HEPATITIS B SURFACE ANTIGEN 2021-12-01 12:44:00 Anudcolin [facility] HEPATITIS B SURFACE 2021-12-01 12:44:[address] [facility] [address] [facility] ANTIBODY [facility] HEPATITIS B CORE ANTIBODY, 2021-12-01 12:44:00 [facility] HEPATITIS C ANTIBODY 2021-12-01 12:44:00 Ankishor [facility] IRON, TIBC, % SAT. (WITHOUT 2021-12-01 12:44:00 Ankishor [facility] FERRITIN) [facility] FERRITIN 2021-12-01 12:44:00 Anudu [facility] MNLVH-2-TDOWXSGICPL\, SERUM 2021-12-01 12:44:00 Anudu [facility] CERULOPLASMIN 2021-12-01 12:44:00 Ankishor [facility] ANTI-NUCLEAR ANTIBODY (GRACY) 2021-12-01 12:44:00 Anericu [facility] ACTIN (SMOOTH MUSCLE) 2021-12-01 12:44:00 Anudu [facility] ANTIBODY, IGG [facility] MITOCHONDRIA M2 ANTIBODY 2021-12-01 12:44:00 [facility] (IGG) [facility] ALPHA FETOPROTEIN (AFP), 2021-12-01 12:44:[address] [facility] [address] [facility] TUMOR MARKER [facility] CARBOHYDRATE ANTIGEN 19-9 2021-12-01 12:44:00 Anudu Timothyfouziaranda [facility] (CA 19-9) [facility] CARCINOEMBRYONIC ANTIGEN 2021-12-01 12:44:00 [facility]udu, [facility] GRACY TITER AND PATTERN 2021-12-01 12:44:00 [facility]udu, [facility] CBC W/PLT COUNT & AUTO 2021-12-01 12:44:00 [facility] DIFFERENTIAL [facility] COVID-19 QUALITATIVE RT-PCR 2020-05-20 19:30:00 David Wood [facility] Plan of Care Planned Activity Planned Date Details Comments Source Future Scheduled 2023-04-05 Tobacco Cessation [facility] Test 00:00:00 [facility] r Screening (12+) [code = Tobacco Cessation Counseling and Screening (12+)] Future Scheduled 2022-04-05 HEPATITIS B VACCINES [facility] Test 10:59:21 (1 of 3 - 3-dose series) [code = HEPATITIS B VACCINES (1 of 3 - 3-dose series)] Future Scheduled 2022-04-05 COVID-19 VACCINE (#1) [facility] Test 10:59:21 [code = COVID-19 VACCINE (#1)] Future Scheduled 2022-04-05 SHINGLES VACCINES (1 [facility] Test 10:59:21 of 2) [code = SHINGLES VACCINES (1 of 2)] Future Scheduled 2022-04-05 65+ [facility]OCOCCAL [facility] Test 10:59:21 VACCINE (1 - PCV) [code = 65+ PNEUMOCOCCAL VACCINE (1 - PCV)] Future Scheduled 2022-04-05 INFLUENZA VACCINE [facility] Test 10:59:21 [code = INFLUENZA VACCINE] Future Scheduled 2022-03-06 HEPATITIS B VACCINES [facility] Test 10:43:22 (1 of 3 - 3-dose series) [code = HEPATITIS B VACCINES (1 of 3 - 3-dose series)] Future Scheduled 2022-03-06 COVID-19 VACCINE (#1) [facility] Test 10:43:22 [code = COVID-19 VACCINE (#1)] Future Scheduled 2022-03-06 SHINGLES VACCINES (1 [facility] Test 10:43:22 of 2) [code = SHINGLES VACCINES (1 of 2)] Future Scheduled 2022-03-06 65+ P[facility]UMOCOCCAL [facility] Test 10:43:22 VACCINE (1 - PCV) [code = 65+ PNEUMOCOCCAL VACCINE (1 - PCV)] Future Scheduled 2022-03-06 INFLUENZA VACCINE [facility] Test 10:43:22 [code = INFLUENZA VACCINE] Future Scheduled 2022 HEPATITIS B VACCINES [facility] Test 06:27:00 (1 of 3 - 3-dose series) [code = HEPATITIS B VACCINES (1 of 3 - 3-dose series)] Future Scheduled 2022 COVID-19 VACCINE (#1) [facility] Test 06:27:00 [code = COVID-19 VACCINE (#1)] Future Scheduled 2022 SHINGLES VACCINES (1 [facility] Test 06:27:00 of 2) [code = SHINGLES VACCINES (1 of 2)] Future Scheduled 2022 65+ P[facility]UMOCOCCAL [facility] Test 06:27:00 VACCINE (1 - PCV) [code = 65+ PNEUMOCOCCAL VACCINE (1 - PCV)] Future Scheduled 2022 INFLUENZA VACCINE [facility] Test 06:27:00 [code = INFLUENZA VACCINE] Future Scheduled 2021-12-30 HEPATITIS B VACCINES [facility] Test 19:10:41 (1 of 3 - 3-dose series) [code = HEPATITIS B VACCINES (1 of 3 - 3-dose series)] Future Scheduled 2021-12-30 COVID-19 VACCINE (#1) [facility] Test 19:10:41 [code = COVID-19 VACCINE (#1)] Future Scheduled 2021-12-30 COLONOSCOPY SCREENING [facility] Test 19:10:41 [code = COLONOSCOPY SCREENING] Future Scheduled 2021-12-30 SHINGLES VACCINES (1 [facility] 19:10:41 of 2) [code = [...] Future Scheduled 2021-05-31 COVID-19 VACCINE (1) [facility] Test 13:15:12 [code = COVID-19 VACCINE (1)] Future Scheduled 2021-05-31 65+ [facility]OCOCCAL [facility] Test 13:15:12 VACCINE (1 of 2 - PPSV23) [code = 65+ PNEUMOCOCCAL VACCINE (1 of 2 - PPSV23)] Future Scheduled 2021-05-31 [facility] 13:15:12 (procedure) [code = 579028254] Future Scheduled 2021-05-31 [facility]COPY SCREENING [facility] Test 13:15:12 [code = COLONOSCOPY SCREENING] Future Scheduled 2021-05-31 [facility]INGLES [facility]ACCINES (#[facility]) [facility] 13:15:12 [code = SHINGLES VACCINES [...] [facility] (procedure) [code = 994744700] Future Scheduled [facility]CREENING [facility] [code = COLONOSCOPY SCREENING] Future Scheduled SHINGLES VACCINES (#1) [facility] Test [code = SHINGLES VACCINES (#1)] Future Scheduled INFLUENZA VACCINE [facility] Test [code = INFLUENZA VACCINE] Encounters Start End Encounter Admission Attending Care Care Encounter Source Date/Time Date/Time Type Type Clinicians Facility Department ID 2022-04-10 2022-04-10 Outside Shahram [facility] [id number] 00:00:00 00:00:00 Orders Emmy Adams [facility] 2022-04-05 2022-04-05 Office Jennifer Luke [facility] [id number] 11:00:00 11:30:00 Visit Yeyo Wells [facility] 2022-04-03 2022-04-03 Telephone Priscilla [facility] [id number] 00:00:00 00:00:00 [facility] 2022-03-30 2022-03-30 Documentat Shy, [facility] [id number] 00:[facility]00 00:00:00 [facility] 2022-03-16 2022-03-16 Telephone Shahram [facility] [id number] 00:00:00 00:00:00 [facility] 2022-03-15 2022-03-15 Documentat Shahram, [facility] [id number] 00:00[facility]00 00:00:00 [facility] 2022-03-06 2022-03-06 [facility] [id number] 14:30:01 23:59:00 Encounter Line [facility] 2022-03-06 2022-03-06 [facility], [facility] [id number] 14:30:01 14:30:01 Encounter Line [facility] 2022-03-03 2022-03-03 [id number] 00:[facility]00 00:00:00 [facility] 2022-03-03 2022-03-03 Telephone Carina [facility] [id number] 00:00:00 00:00:00 [facility] 2022-03-03 2022-03-03 Telephone Carina [facility] [id number] 00:00:00 00:00:00 [facility] 2022-03-03 2022-03-03 [facility] [id number] 00:00:00 00:00:00 [facility] 2022 2022 Telephone Russell [facility] [id number] 00:00:00 00:00:00 [facility] 2022 2022 Orders Alber, [facility] [id number] 00:00:00 00:00:00 Only [facility] 2022 2022 Telephone Russell [facility] [id number] 00:00:00 00:00:00 [facility] 2022 2022 Orders Alber, [facility] [id number] 00:00:00 00:00:00 Only [facility] 2021-12-15 2021-12-15 Outpatient [facility] SLE [id number] [facility] 10:34:57 23:59:00 [facility] 2021-12-15 2021-12-15 [facility] [id number] 10:34:57 23:59:00 Encounter 1, [facility] Room [facility] 2021-12-15 2021-12-15 [facility] [id number] 10:34:57 23:59:00 Encounter 1, [facility] [address] Room [facility] 2021-12-09 2021-12-09 Abstract Priscilla [facility] [id number] 00:00:00 00:00:00 [facility] 2021-12-09 2021-12-09 Abstract Priscilla [facility] [id number] 00:00:00 00:00:00 [facility] 2021-12-06 2021-12-06 Denise Mccallum [facility] [id number] 00:00:00 00:00:00 [facility] 2021-12-06 2021-12-06 Telephone Alessio [facility] [id number] 00:00:00 00:00:00 [facility] 2021-12-02 2021-12-02 Anthonylaurel Mccallum [facility] [id number] 00:00:00 00:00:00 [facility] 2021-12-02 2021-12-02 [facility]thonylaurel [facility] [id number] 00:00:00 00:00:00 [facility] 2021-12-01 2021-12-01 Office Russell, [facility] [id number] 11:00:00 12:00:00 Visit [facility] 2021-12-01 2021-12-01 Office Alysa, [facility] [id number] 11:00:00 12:00:00 Visit [facility] 2021-12-01 2021-12-01 Outpatient BRYNN WELLS [facility] SLE [id number] SLE 10:47:10 10:47:10 [facility] 2021-11-16 2021-11-16 [facility]urel [facility] [id number] 00:00:00 00:00:00 [facility] 2021-11-16 2021-11-16 [facility] [id number] 00:00:00 00:00:00 [facility] 2020-05-20 2020-05-20 Lab Israel, 1.2.840.1 [id number] Methodi 13:19:54 13:34:[address] 3.430.2.7 Hospit a .3.314508 l .8 2020-05-20 2020-05-20 Travel 1.2.840.1 1.2.604.974 [id number] Methodi 00:00:00 00:00:[address] 3.430.2.7 0.2.7.3.698 Ho tamrata .3.043049 084.8 l .8 2020-05-11 2020-05-11 Dae Epperson2.840.1 [id number] Methodi 00:00:00 00:00:00 Only David Juares. [address]097.1.[address] 3.430.2.7 Hospit a .3.692470 l .8 Results Test Description Test Time Test Comments Results Result Comments Source CARCINOEMBRYONIC ANTIGEN (CEA) 2022-04-05 15:07:36 Test Item Value Reference Range Interpretation Comme nts CARCINOEMBRYONIC ANTIGEN (BEAKER) (test code = 685) 1.5 ng/mL 0. 0-5.0 Labor Supervisor ID - BSALPHA FETOPROTEIN (AFP), TUMOR [id number] 15:07:36 Test Item Value Reference Range Interpretation Comments ALPHA-FETOPROTEIN (BEAKER) (test 397.9 ng/mL <10.0 H code = 1094) Labor Supervisor ID - BSPROTHROMBIN TIME/[id number] 14:36:08 Test Item Value Reference Range Interpretation Comments PROTIME (BEAKER) 17.0 seconds 11.9-14.2 H (test code = 759) INR (BEAKER) (test 1.42 See_Comment [Automat ed message] code = 370) The system Baraf[employer] generated this result transmitted ref erence range: <=5.90. The reference range was not used to int erpret this result as normal/abnormal . RECOMMENDED COUMADIN/WARFARIN INR THERAPY RANGESSTANDARD DOSE: 2.0 - 3.0 Includes: PROPHYLAXIS for venous thrombosis, systemic embolization; TREATMENT for venous thrombosis and/or pulmonary embolus.HIGH RISK: Target INR is 2.5-3.5 for patients with mechanical heart valves.CBC W/PLT COUNT & AUTO [id number] 14:24:20 Test Item Value Reference Range Interpretation Comments WHITE BLOOD CELL COUNT (BEAKER) 8.9 K/ L 3.5-10.5 (test code = 775) RED BLOOD CELL COUNT (BEAKER) 4.19 M/ L 4.63-6.08 L (test code = 761) HEMOGLOBIN (BEAKER) (test code = 13.4 GM/DL 13.7-17.5 L 410) HEMATOCRIT (BEAKER) (test code = 41.3 % 40.1-51.0 411) MEAN CORPUSCULAR VOLUME (BEAKER) 99 fL 79-92 H (test code = 753) MEAN CORPUSCULAR HEMOGLOBIN 32.0 pg 25.7-32.2 (BEAKER) (test code = 751) MEAN CORPUSCULAR HEMOGLOBIN CONC 32.4 GM/DL 32.3-36.5 (BEAKER) (test code = 752) RED CELL DISTRIBUTION WIDTH 13.7 % 11.6-14.4 (BEAKER) (test code = 412) PLATELET COUNT (BEAKER) (test 147 K/CU MM 150-450 L code = 756) MEAN PLATELET VOLUME (BEAKER) 12.3 fL 9.4-12.4 (test code = 754) NUCLEATED RED BLOOD CELLS 0 /100 WBC 0-0 (BEAKER) (test code = 413) NEUTROPHILS RELATIVE PERCENT 50 % (BEAKER) (test code = 429) LYMPHOCYTES RELATIVE PERCENT 35 % (BEAKER) (test code = 430) MONOCYTES RELATIVE PERCENT 10 % (BEAKER) (test code = 431) EOSINOPHILS RELATIVE PERCENT 4 % (BEAKER) (test code = 432) BASOPHILS RELATIVE PERCENT 0 % (BEAKER) (test code = 437) NEUTROPHILS ABSOLUTE COUNT 4.47 K/ L 1.78-5.38 (BEAKER) (test code = 670) LYMPHOCYTES ABSOLUTE COUNT 3.15 K/ L 1.32-3.57 (BEAKER) (test code = 414) MONOCYTES ABSOLUTE COUNT (BEAKER) 0.88 K/ L 0.30-0.82 H (test code = 415) EOSINOPHILS ABSOLUTE COUNT 0.39 K/ L 0.04-0.54 (BEAKER) (test code = 416) BASOPHILS ABSOLUTE COUNT (BEAKER) 0.02 K/ L 0.01-0.08 (test code = 417) IMMATURE GRANULOCYTES-RELATIVE 0.10 % 0.00-1.00 PERCENT (BEAKER) (test code = 2801) MR, ABDOMEN, [id number] 11:46:00Referred by: Magdy [id number] do with MRCPUnlisted Reason for Exam - Click Yes and Enter Reason Below- >YesUnlisted Reason for Exam->Liver mass, pancreatic mass [facility] 1945 Sex: MFINAL REPORT MR Abdomen dated 03/15/2022 Comment: Multiplanar T1 and T2- weighted images, postcontrast axial and coronal T1-weighted images of the abdomen, respiratory triggered and breath-hold MRCP sequences were obtained. 3-D reconstruction of the abdomen was performed for better evaluation of the biliary tree. There is trace right pleural effusion and small left pleural effusion. Julien bsegmental atelectasis is seen in both lower lobes. Gallbladder is contracted. No gallstone, gallbladder wall thickening, or pericholecystic fluid collection is seen. MRCP demonstrates normal caliber intra and extra hepatic biliary ducts. No filling defect is seen in the biliary ducts to suggest choledocholithiasis. Common bile duct measures approximately 5 mm in size. Pancreatic duct is normal in caliber. Liver is normal in size. A 2.3 x 3.6 cm T1 hypointense and T2 hyperintense lesion is seen in the segment 8 of liver. There is early postcontrast heterogeneous enhancement. The lesion is not that of typical focal nodular hyperplasia but cannot be entirely excluded. Other possibilities include other primary or secondary hepatic neoplasm. Spleen is normal in size. The splenic, superior mesenteric,portal, and hepatic veins are patent. Main portal vein measures 1.2 cm. Pancreas is normal in caliber. A 1.9 cm exophytic mass is seen in the region of the neck of the pancreas. The lesion has low signal intensity on T1 and T2-weighted images. There is peripheral postcontrast enhancement. No pancreatic duct dilatation is seen. There is no involvement of the celiac trunk, splenic, proper hepatic arteries, splenic, superior mesenteric, or portal veins. The adrenals are unremarkable. Both kidneys are no rmal in size and functioning. The visualized small and large bowel are unremarkable. IMPRESSION:1. Heterogeneously enhancing mass in the segment 8 of liver suggestive of primary or secondary hepatic neoplasm.2. Exophytic peripheral enhancing mass in the neck of the pancreas may represent to pancreaticneuroendocrine tumor, mesothelioma, carcinoid tumor, desmoid tumor, or possible less likely gastric tumor. Recommend tissue diagnosis. Signed: Margret Lopez MDReport Verified Date/Time: 03/15/2022 11:46:41 Reading Location: [address] Body Reading Room CT, CHEST, WITHOUT IV [id number] 11:52:00Referred by: Magdy [id number] Reason for Exam - Click Yes and Enter Reason Below->NoKA[facility] : 1945 Sex: MFINAL REPORT EXAMINATION: CT, CHEST, WITHOUT IV CONTRAST [...] 160 x 0.014 mSvCTDIvol has been reviewed. Itis below the limits set by the Radiation [...] nodule in the right upper lobe, posterior seg ment (series 2, image 47). A 2 mm [...] proximal LCX coronary stent. The thoracic aorta andpulmonary arteries are unremarkable. ESOPHAGUS: Unremarkable. UPPER ABDOMEN: Hepatic steatosis without hepatomegaly. Nonvisualization of the known liver mass due to absence of intravenous contrast. BONES: The visualized bony thorax is within normal limits. SOFT TISSUES: Bilateral gynecomastia. IMPRESSION: 1. Chronic small volume left pleural effusion. 2. Round atelectasis, scarring and bronchiectasisin the posterior and lateral basal segments of [...] MDReport Verified Date/Time: 12/16/2021 11:52:37 Reading Location: [facility] Reading Room [address] [place] [address] ANA TITER AND [id number] 13:41:49 Test Item Value Reference Range Interpretation Comments GRACY TITER (BEAKER) (test code = :160 1541) GRACY PATTERN (BEAKER) (test code = Nucleolar 1781) ANTI-NUCLEAR ANTIBODY (GRACY)2021-12-05 13:41:38 Test Item Value Reference Range Interpretation Comments ANTI-NUCLEAR ANTIBODY (GRACY) (BEAKER) Positive Negative A (test code = 418) Test performed by IFA method.[id number] 17:07:28 Test Item Value Reference Range Interpretation Comments FERRITIN (BEAKER) (test code = 326.37 ng/mL 5.00-275.00 H 361) Labor Supervisor ID - PIAYA LCARCINOEMBRYONIC ANTIGEN (CEA)2021-12-01 16:20:58 Test Item Value Reference Range Interpretation Comments CARCINOEMBRYONIC ANTIGEN (BEAKER) 1.4 ng/mL 0.0-5.0 (test code = 685) Labor Supervisor ID - YASMIN MALPHA FETOPROTEIN (AFP), TUMOR [id number] 16:20:58 Test Item Value Reference Range Interpretation Comments ALPHA-FETOPROTEIN (BEAKER) (test 105.2 ng/mL <10.0 H code = 1094) Labor Supervisor ID - YASMIN MHEPATITIS A ANTIBODY, [id number] 16:20:58 Test Item Value Reference Range Interpretation Comments HEPATITIS A IGM ANTIBODY (BEAKER) Nonreactive Nonreactive (test code = 498) Labor Supervisor ID - YASMIN MHEPATITIS A ANTIBODY, [id number] 16:20:58 Test Item Value Reference Range Interpretation Comments HEPATITIS A IGG ANTIBODY (BEAKER) Nonreactive Nonreactive (test code = 2797) Labor Supervisor ID - YASMIN MHEPATITIS B CORE ANTIBODY, [id number] 16:18:45 Test Item Value Reference Range Interpretation Comments HEPATITIS B CORE TOTAL ANTIBODY Reactive Nonreactive A (BEAKER) (test code = 497) Labor Supervisor ID - YASMIN MHEPATITIS B SURFACE [id number] 16:12:55 Test Item Value Reference Range Interpretation Comments HEPATITIS B SURFACE ANTIGEN (2) Nonreactive Nonreactive (BEAKER) (test code = 2585) Specimen is considered negative for HBsAg.HEPATITIS B SURFACE [id number] 16:12:55 Test Item Value Reference Range Interpretation Comments HEPATITIS B SURFACE ANTIBODY 21.9 mIU/mL <8.0 H (BEAKER) (test code = 647) Labor Supervisor ID - YASMIN MHEPATITIS C [id number] 16:12:55 Test Item Value Reference Range Interpretation Comments HEPATITIS C ANTIBODY (BEAKER) Nonreactive Nonreactive (test code = 367) Labor Supervisor ID - YASMIN KIM, TIBC, % SAT. (WITHOUT FERRITIN)2021-12-01 15:37:28 Test Item Value Reference Range Interpretation Comments IRON (BEAKER) (test code = 547) 55.0 ug/dL 40.0-160.0 TOTAL IRON BINDING CAPACITY 233 ug/dL 250-450 L (BEAKER) (test code = 769) IRON % SATURATION (2) (BEAKER) 24 % 20-55 (test code = 2590) Labor Supervisor ID - YASMIN [id number] 15:37:05 Test Item Value Reference Range Interpretation Comments ALPHA-1 ANTITRYPSIN (BEAKER) 204.60 mg/dL 90.00-200.00 H (test code = 502) Labor Supervisor ID - YASMIN MBILIRUBIN, [id number] 15:32:23 Test Item Value Reference Range Interpretation Comments BILIRUBIN DIRECT (BEAKER) (test 0.2 mg/dL 0.1-0.5 code = 706) Labor Supervisor ID - YASMIN MCOMPREHENSIVE METABOLIC [id number] 15:32:22 Test Item Value Reference Range Interpretation [...] not appl icable for dialysis patien ts Labor Supervisor ID - YASMIN MPROTHROMBIN [id number] 14:46:37 Test Item Value Reference Range Interpretation Comments PROTIME (BEAKER) 14.3 seconds 11.9-14.2 H (test code = 759) INR (BEAKER) (test 1.18 See_Comment [Automat ed message] code = 370) The system [employer] generated this result transmitted ref erence range: <=5.90. The reference range was not used to int erpret this result as normal/abnormal . RECOMMENDED COUMADIN/WARFARIN INR THERAPY RANGESSTANDARD DOSE: 2.0 - 3.0 Includes: PROPHYLAXIS for venous thrombosis, systemic embolization; TREATMENT for venous thrombosis and/or pulmonary embolus.HIGH RISK: Target INR is 2.5-3.5 for patients with mechanical heart valves.CBC W/PLT COUNT & AUTO [id number] 14:37:29 Test Item Value Reference Range Interpretation [...] (BEAKER) (test code = 2801) COVID-19 qualitative [id number] 01:17:25 Test Item Value Reference Range Interpretation Comments Interpretation (test Positive results code = 7992181) are indicative of active infection with 2019-nCoV but do not rule out bacterial infection or coinfection with other viruses. The agent detected may not be the definite cause of disease. COVID-19 qualitative Detected Not-Detected A RT-PCR result (test code = 01949-8) COVID-19 qualitative See link below for C ase Number: RT-PCR (test code = PDF Lab Report [id number]) Lab Interpretation Abnormal (test code = 72561-3) Jazmine [id number]-0 (COVID-19) RNA [Presence] in Respiratory specimen by THOR with probe [id number] 19:17:06 Test Item Value Reference Range Interpretation Comments SARS-CoV-2 (COVID-19) RNA [Presence] Detected Not-Detected in Respiratory specimen by THOR with probe detection (test code = 22207-5) [facility]
[2022-04-16] MEDS ORDERED: LIDOCAINE 1% W/EPI 1:100,000 30 ML VIAL ONE (14:18)
--- NOTE | 2022-04-16 14:47 | RAD REPORT ---
EXAM DESCRIPTION: CT - CTHCSPWOC - 04/16/2022 2:34 pm CLINICAL HISTORY: fall, head injury COMPARISON: <Comparisons>CT head and cervical 05/27/2019 TECHNIQUE: Axial 5 mm thick images of the head were obtained. Axial 2 mm thick images of the cervic al spine were obtained with sagittal and coronal reconstruction images generated and reviewed. All CT scans are performed using dose optimization technique as appropriate and may include automated exposure control or mA/KV adjustment according to patient size. FINDINGS: No intracranial hemorrhage, mass, edema or acute intracranial finding. No acute cortical b ased infarction. No cortical edema or sulcal effacement. Atrophy changes are present similar to comparison. Old infarction changes are seen in the right cerebral hemisphere and right basal ganglia region. Ventricles are in proportion to volume loss. Chronic ischemic changes are noted. No extra-ax ial fluid collections. Mastoid air cells are clear. Chronic bilateral maxillary sinusitis present. Pa tchy mucosal thickening seen in the ethmoid air cells. No globe or orbit abnormality seen. Bandaging is in place right temporal region presumably for laceration. There is no scalp lower subcutaneous fat hematoma underlying bone is intact. Cervical body height and alignment are normal. No disk space narrowing. No fracture or acute bony abn ormality. Facet joint degenerative changes are present. No significant bony foraminal encroachment. D egenerative change at the dens anterior arch C1 level is present. Cervical spine degenerative changes match the 2019 comparison. Central canal detail is inherently limited. Bandaging is in place anterior neck soft tissues. No subcutaneous or deeper hematoma seen. IMPRESSION: No acute intracranial finding. Intracranial findings are similar to the 2019 comparison. Cervical spine degenerative change similar to 2019 study. No acute finding. Bandaging is in place at sites of laceration. No deeper hematoma or foreign body.
--- NOTE | 2022-04-16 15:57 | RAD REPORT ---
EXAM DESCRIPTION: RAD - Shoulder Left 2 View - 04/16/2022 3:12 pm CLINICAL HISTORY: fall COMPARISON: No comparisons TECHNIQUE: Internal and external rotation views of the left shoulder were obtained. FINDINGS: There is no fracture or dislocation. Prominent AC joint degenerative changes are present. Large inferiorly directed spurs project from the clavicle and acromion at the AC joint. Acromial makayla ral joint space is narrowed, more prominently along the lateral aspect. No acute or suspicious findin gs. IMPRESSION: Left shoulder degenerative change as detailed. No acute findings.
--- NOTE | 2022-04-16 15:58 | RAD REPORT ---
EXAM DESCRIPTION: RAD - Knee Right 3 View - 04/16/2022 3:12 pm CLINICAL HISTORY: fall COMPARISON: No comparisons FINDINGS: No fracture, dislocation or periosteal reaction.No joint effusion seen. Mild marginal spur s seen along the patella. No foreign body or other soft tissue abnormality. IMPRESSION: No acute bone or joint finding. Clinical concerns for internal derangement or occult bony injury could be further assessed with MR im aging.
--- NOTE | 2022-04-16 16:12 | ER ---
Nurse's Notes [facility] Name: Tiffanie Alvarez Age: 77 yrs Sex: Male : 1945 Arrival Date: 04/16/2022 Time: 13:51 Bed 2 Private MD: Diagnosis: Unspecified injury of head, initial encounter Presentation: 04/16 13:51 Chief complaint: EMS states: Pt is legally blind, tripped and fell in [employer] parking ph lot, small laceration to R side of head that would not stop bleeding on scene so family called EMS, no LOC but pt does take Eliquis and Plavix for recent PE. Coronavirus screen: Vaccine status: Patient reports being unvaccinated. Ebola Screen: No symptoms or risks identified at this time. Initial Sepsis Screen: Does the patient meet any 2 criteria? No. Patient's initial sepsis screen is negative. Does the patient have a suspected source of infection? No. Patient's initial sepsis screen is negative. Risk Assessment: Do you want to hurt yourself or someone else? Patient reports no desire to harm self or others. Onset of symptoms was April 16, 2022. 13:51 Method Of Arrival: EMS: [facility] 13:51 Acuity: ANDREEA 3 ph 14:04 Care prior to arrival: Bleeding of injury controlled. Injury dressed. Mechanism of ph Injury: Fall from standing position. Trauma event details: Injury occurred in the [facility], Injury occurred: in a public building. Injury occurred: April 16, 2022. Triage Assessment: 13:59 General: Appears in no apparent distress. comfortable, well groomed, Behavior is calm, ph cooperative. Pain: Denies pain. Neuro: Level of Consciousness is awake, alert, obeys commands, Oriented to person, place, time, situation, Pupils are PERRLA, Denies dizziness, headache. Cardiovascular: Capillary refill < 3 seconds in bilateral fingers Patient's skin is warm and dry. Respiratory: Airway is patent Respiratory effort is even, unlabored. Derm: Skin is fragile, is thin, Skin is pink, warm \T\ dry. Musculoskeletal: Circulation, motion, and sensation intact. Range of motion: intact in all extremities. Injury Description: Laceration sustained to right druze moderate bleeding noted at this time. A dressing was applied. Trauma Activation: Physician: ED Physician; Name: jeffrey; Notified At: 13:51; Arrived At: 14:00 Physician: General Surgeon; Name: ; Notified At: 13:51; Arrived At: Physician: Radiology; Name: Fely; Notified At: 13:51; Arrived At: 13:51 Physician: Respiratory; Name: ; Notified At: 13:51; Arrived At: Physician: Lab; Name: ; Notified At: 13:51; Arrived At: Historical: - Allergies: 13:57 No Known Allergies; ph - Home Meds: 13:57 atorvastatin 20 mg Oral tab 1 tab q other day [Active]; Bengay Ultra Strength Topical ph oint [Active]; brimonidine 0.1 % ophthalmic (eye) drop [Active]; dorzolamide 2 % ophthalmic drop 1 drop 3 times per day [Active]; finasteride 5 mg Oral tab 1 tab once daily [Active]; Flomax 0.4 mg Oral cap 1 cap once daily [Active]; glimepiride 2 mg Oral tab 1 tab once daily [Active]; Lactobacillus acidoph-pectin Oral cap [Active]; latanoprost 0.005 % ophthalmic (eye) drop [Active]; levothyroxine 75 mcg tab 1 tab once daily [Active]; losartan 50 mg Oral tab 1 tab once daily [Active]; Miralax 17 gram/dose Oral powd [Active]; Myrbetriq 25 mg Oral Tb24 1 tab once daily [Active]; nexabiotic, once daily [Active]; Plavix 75 mg Oral tab 1 tab once daily [Active]; rosuvastatin 40 mg Oral tab 1 tab once daily [Active]; silodosin 4 mg Oral 1 cap once daily [Active]; - PMHx: 13:57 BLINDNESS; CVA; Diabetes - NIDDM; Hypertension; hypotension; Hypothyroidism; Irregular ph heart rate; lung fibrosis; Myocardial infarction; - PSHx: 13:57 cardiac stent; ph - Immunization history:: Adult Immunizations unknown. - Social history:: Smoking status: Patient denies any tobacco usage or history of. - Immunization history: Last tetanus immunization: none per patient choice. Screenin:01 [facility] ED Fall Risk Assessment (Adult) History of falling in the last 3 months, ph including since admission Yes- single mechanical fall (1 pt) Confusion or Disorientation No (0 pts) Intoxicated or Sedated No (0 pts) Impaired Gait Yes (1 pt) Mobility Assist Device Used No (0 pt) Altered Elimination Yes (1 pt) Score/Fall Risk Level 3 or more points = High Risk Oriented to surroundings, Maintained a safe environment, Educated pt \T\ family on fall prevention, incl call for assistance when getting out of bed, Utilized family, sitter, or virtual steam fitter supervisor maintenance as indicated. Abuse screen: Denies threats or abuse. Denies injuries from another. Nutritional screening: No deficits noted. Tuberculosis screening: No symptoms or risk factors identified. Primary Survey: 14:03 NO uncontrolled hemorrhage observed. A: The client is awake and alert. The airway is ph patent. Breathing/Chest: Spontaneous respiratory effort, equal unlabored respirations, breath sounds clear bilaterally, regular pattern, symmetrical chest rise and fall. Circulation: No external hemorrhage present. Regular and strong central pulse, skin warm/dry/normal color. Disability Pupils are equal, round, reactive to light and accommodation. Client is alert. Exposure/Environment: There is evidence of uncontrolled external hemorrhage. Provider notified immediately. Methods to control bleeding applied. Obvious injury(ies) are noted at this time: laceration to R side of face A warming method has been applied: A warm blanket has been provided to the patient. 16:30 Reassessment Alertness and Airway: Awake and alert. The airway is patent. Breathing: ph Spontaneous respiratory effort, equal unlabored respirations, breath sounds clear bilaterally, regular pattern with symmetrical chest rise and fall. Circulation: No external hemorrhage noted. Regular and strong central pulse, skin warm/dry/normal color. Disability: Pupils Pupils are equal, round, reactive to light and accomodation. Alert. Assessment: 14:02 General: Appears in no apparent distress. comfortable, slender, well groomed, Behavior ph is calm, cooperative, appropriate for age. Pain: Denies pain. Neuro: Level of Consciousness is awake, alert, obeys commands, Oriented to person, place, time, situation. Respiratory: Airway is patent Respiratory effort is even, unlabored. Derm: Skin is pink, warm \T\ dry. Musculoskeletal: Circulation, motion, and sensation intact. Range of motion: intact in all extremities. Injury Description: Laceration sustained to right druze is superficial, bleeding moderately. 15:30 Reassessment: Patient appears in no apparent distress at this time. Patient and/or ph family updated on plan of care and expected duration. Pain level reassessed. Patient is alert, oriented x 3, equal unlabored respirations, skin warm/dry/pink. Vital Signs: 13:51 BP 176 / 73; Pulse 67; Resp 18; Temp 97.1; Pulse Ox 100% on R/A; Weight 79.38 kg; ph Height 5 ft. 11 in. (180.34 cm); 15:00 BP 152 / 87; Pulse 68; Resp 18; Pulse Ox 98% on R/A; ph 13:51 Body Mass Index 24.41 (79.38 kg, 180.34 cm) ph [place] Coma Score: 14:00 Eye Response: spontaneous(4). Verbal Response: oriented(5). Motor Response: obeys ph commands(6). Total: 15. 15:00 Eye Response: spontaneous(4). Verbal Response: oriented(5). Motor Response: obeys ph commands(6). Total: 15. Trauma Score (Adult): 14:00 Eye Response: spontaneous(1); Verbal Response: oriented(1); Motor Response: obeys ph commands(2); Systolic BP: > 89 mm Hg(4); Respiratory Rate: 10 to 29 per min(4); [place] Score: 15; Trauma Score: 12 15:00 Eye Response: spontaneous(1); Verbal Response: oriented(1); Motor Response: obeys ph commands(2); Systolic BP: > 89 mm Hg(4); Respiratory Rate: 10 to 29 per min(4); [place] Score: 15; Trauma Score: 12 ED Course: 13:51 Patient arrived in ED. eb 13:51 Shannan Black, RN is Primary Nurse. ph 13:56 Triage completed. ph 13:59 Arm band placed on Patient placed in an exam room. ph 14:01 Patient has correct armband on for positive identification. Placed in gown. Bed in low ph position. Call light in reach. Side rails up X2. Pulse ox on. NIBP on. Door closed. Noise minimized. Warm blanket given. 14:04 Patient maintains SpO2 saturation greater than 95% on room air. Thermoregulation: warm ph blanket given to patient. 14:06 Bruno Palmer PA is PHCP. [facility] 14:06 Regan Serrano MD is Attending Physician. jmm 14:35 CT Head C Spine In Process Unspecified. EDMS 15:14 Shoulder Left (2 View) XRAY In Process Unspecified. EDMS 15:14 Knee Right 3 View XRAY In Process Unspecified. EDMS 16:17 Wound care: to abrasion, located on right knee was cleaned with Hibiclens, dressed with ph Kerlix, Surgicell. 16:18 Assist provider with laceration repair on right druze that was 2.5 cm. or less using ph sutures. Set up tray. Performed by Bruno GALINDO Patient tolerated well. Patient did not have IV access during this emergency room visit. 16:33 David Crespo MD is Referral Physician. [facility] Administered Medications: 14:53 Drug: Lidocaine-Epinephrine -1%: (1:100,000) 20 ml Volume: 20 ml; Route: Infiltration; ph 14:53 Follow up: Response: No adverse reaction ph Medication: 16:19 VIS not applicable for this client. ph Output: 16:30 Urine: 500ml (Voided); Total: 500ml. ph Outcome: 16:12 Discharge ordered by . [facility] 16:38 Patient left the ED. mm9 16:38 Discharged to home via wheelchair, with significant other. ph 16:38 Condition: good 16:38 Discharge instructions given to patient, significant other, Instructed on discharge instructions, follow up and referral plans. Demonstrated understanding of instructions, follow-up care. 16:38 Patient's length of stay was not longer than 2 hours. ph Signatures: Dispatcher [employer] EDMS Bruno Palmer PA PA Shannan Jeffery RN RN ph Saniya Benavides Maria mm9
--- NOTE | 2022-04-16 16:12 | EDPHYS ---
Physician Documentation [facility] Name: Tiffanie Alvarez Age: 77 yrs Sex: Male : 1945 Arrival Date: 04/16/2022 Time: 13:51 Bed 2 Private MD: ED Physician Regan Serrano HPI: 04/16 14:12 This 77 yrs old Male presents to ER via EMS with complaints of Fall Injury. jmm 14:12 Details of fall: The patient fell from an upright position. Onset: The symptoms/episode jmm began/occurred acutely, just prior to arrival. This is a 77 year old male with a history of cva, dm, htn, that presents to the ED with complaints of right sided head injury after a fall which occurred just prior to arrival. Patient states he lost balance and fell. Denies chest pain, sob, syncope. . Historical: - Allergies: 13:57 No Known Allergies; ph - Home Meds: 13:57 atorvastatin 20 mg Oral tab 1 tab q other day [Active]; Beng[place] Ultra Strength Topical ph oint [Active]; brimonidine 0.1 % ophthalmic (eye) drop [Active]; dorzolamide 2 % ophthalmic drop 1 drop 3 times per day [Active]; finasteride 5 mg Oral tab 1 tab once daily [Active]; Flomax 0.4 mg Oral cap 1 cap once daily [Active]; glimepiride 2 mg Oral tab 1 tab once daily [Active]; Lactobacillus acidoph-pectin Oral cap [Active]; latanoprost 0.005 % ophthalmic (eye) drop [Active]; levothyroxine 75 mcg tab 1 tab once daily [Active]; losartan 50 mg Oral tab 1 tab once daily [Active]; Miralax 17 gram/dose Oral powd [Active]; Myrbetriq 25 mg Oral Tb24 1 tab once daily [Active]; nexabiotic, once daily [Active]; Plavix 75 mg Oral tab 1 tab once daily [Active]; rosuvastatin 40 mg Oral tab 1 tab once daily [Active]; silodosin 4 mg Oral 1 cap once daily [Active]; - PMHx: 13:57 BLINDNESS; CVA; Diabetes - NIDDM; Hypertension; hypotension; Hypothyroidism; Irregular ph heart rate; lung fibrosis; Myocardial infarction; - PSHx: 13:57 cardiac stent; ph - Immunization history:: Adult Immunizations unknown. - Social history:: Smoking status: Patient denies any tobacco usage or history of. - Immunization history: Last tetanus immunization: none per patient choice. ROS: 14:12 Constitutional: Negative for fever, chills, and weight loss, Cardiovascular: Negative jmm for chest pain, palpitations, and edema, Respiratory: Negative for shortness of breath, cough, wheezing, and pleuritic chest pain. 14:12 MS/extremity: Positive for pain. 14:12 Skin: Positive for laceration(s). 14:12 All other systems are negative. Exam: 14:12 Constitutional: This is a well developed, well nourished patient who is awake, alert, jmm and in no acute distress. 14:12 Eyes: EOMI, no conjunctival erythema appreciated ENT: Moist Mucus Membranes Neck: Trachea midline, Supple Chest/axilla: Normal chest wall appearance and motion. Cardiovascular: Regular rate and rhythm. No edema appreciated Respiratory: Normal respirations, no respiratory distress appreciated Abdomen/GI: Non distended Back: Normal ROM 14:12 Head/face: 1.5 cm laceration noted to the right eyebrow. 14:12 Skin: laceration noted to the right lateral eyebrow. 14:12 Neuro: Orientation: is normal, Mentation: is normal, Memory: is normal. 14:12 Psych: Behavior/mood is pleasant, cooperative. Vital Signs: 13:51 BP 176 / 73; Pulse 67; Resp 18; Temp 97.1; Pulse Ox 100% on R/A; Weight 79.38 kg; ph Height 5 ft. 11 in. (180.34 cm); 15:00 BP 152 / 87; Pulse 68; Resp 18; Pulse Ox 98% on R/A; ph 13:51 Body Mass Index 24.41 (79.38 kg, 180.34 cm) ph [place] Coma Score: 14:00 Eye Response: spontaneous(4). Verbal Response: oriented(5). Motor Response: obeys ph commands(6). Total: 15. 15:00 Eye Response: spontaneous(4). Verbal Response: oriented(5). Motor Response: obeys ph commands(6). Total: 15. Trauma Score (Adult): 14:00 Eye Response: spontaneous(1); Verbal Response: oriented(1); Motor Response: obeys ph commands(2); Systolic BP: > 89 mm Hg(4); Respiratory Rate: 10 to 29 per min(4); [place] Score: 15; Trauma Score: 12 15:00 Eye Response: spontaneous(1); Verbal Response: oriented(1); Motor Response: obeys ph commands(2); Systolic BP: > 89 mm Hg(4); Respiratory Rate: 10 to 29 per min(4); [place] Score: 15; Trauma Score: 12 MDM: 14:12 Patient medically screened. [facility] 16:10 Data reviewed: vital signs, nurses notes. Counseling: I had a detailed discussion with [facility] the patient and/or guardian regarding: the historical points, exam findings, and any diagnostic results supporting the discharge/admit diagnosis, radiology results, the need for outpatient follow up, to return to the emergency department if symptoms worsen or persist or if there are any questions or concerns that arise at home. 04/16 14:13 Order name: CT Head C Spine; Complete Time: 14:56 [facility] 04/16 14:39 Order name: Shoulder Left (2 View) XRAY; Complete Time: 16:00 [facility] 04/16 14:39 Order name: Knee Right 3 View XRAY; Complete Time: 16:00 [facility] 04/16 15:04 Order name: Wound Care: surigecel, pressure dressing knee; Complete Time: 16:17 [facility] Administered Medications: 14:53 Drug: Lidocaine-Epinephrine -1%: (1:100,000) 20 ml Volume: 20 ml; Route: Infiltration; ph 14:53 Follow up: Response: No adverse reaction ph Disposition Summary: 04/16/22 16:12 Discharge Ordered Location: Home [facility] Condition: Stable [facility] Diagnosis - Unspecified injury of head, initial encounter [facility] Followup: [facility] - With: Private Physician - When: 7 - 10 days - Reason: Recheck today's complaints, Continuance of care, Staple/Suture removal, Re-evaluation by your physician Followup: [facility] - With: David Crespo MD - When: 2 - 3 days - Reason: Recheck today's complaints, Continuance of care, Re-evaluation by your physician Discharge Instructions: - Discharge Summary Sheet [facility] - Head Injury, Adult [facility] - Facial Laceration [facility] Forms: - Medication Reconciliation Form [facility] - Thank You Letter jmm - Antibiotic Education jmm - Prescription Opioid Use [facility] Signatures: Dispatcher [employer] Bruno Naik PA PA jmm Hall, Patricia, RN RN ph
[2022-04-16 16:45] VITALS: BP 176/73; TEMP 97.1; O2SAT 100
== END 2022-04-16 16:38 | disposition home or self-care (01) ==
LOC: ER 13:45
PROC: 0JQ10ZZ Repair Face Subcutaneous Tissue and Fascia, Open Approach (ICD-10-PCS; principal; 2022-04-16)
DX: S01.81XA Laceration without foreign body of other part of head, initial encounter (principal); I10 Essential (primary) hypertension; E11.9 Type 2 diabetes mellitus without complications; Z86.73 Personal history of transient ischemic attack (TIA), and cerebral infarction without residual deficits; Z79.01 Long term (current) use of anticoagulants
CPT/HCPCS: 70450; 72125; 99284